=== PATIENT | female | born 1930 | race Caucasian/White ===

== ENCOUNTER → 2017-02-16 | Outpatient (CLI) | payer MEDICARE ==
--- NOTE | 2017-02-16 08:41 | RAD ---
Exam: PA and lateral chest radiograph History: Lower extremity edema for one week. Comparison: 05/26/2016. Findings: Cardiac silhouette is mildly enlarged, similar to previous study. Aortic atherosclerosis is seen. No pneumothorax or pleural effusion is identified. No focal consolidation or failure is seen. There is mild chronic accentuation of interstitial markings, may indicate mild fibrotic change. Impression: No acute cardiopulmonary process. Enlargement of the cardiac silhouette.
== END | disposition home or self-care (01) ==
LOC: DXRADRC 08:11
PROVIDERS: ATTEND Physician Assistant Medical
DX: I70.0 Atherosclerosis of aorta (principal); R60.0 Localized edema
CPT/HCPCS: 71020

== ENCOUNTER 2019-01-03 15:15 | Inpatient (IN) | payer MEDICARE ==
[~2019-01-03] VITALS: Ht 162.6 cm; Wt 74.4 kg
[2019-01-03 16:19] VITALS: BP 155/94
[2019-01-03 16:20] VITALS: BP 138/89
--- NOTE | 2019-01-03 17:08 | RAD ---
Portable chest, 01/03/2019: HISTORY: Shortness of breath Comparison is made to a study from 02/16/2017. The heart is mildly enlarged. There is calcific plaquing and tortuosity of the thoracic aorta. The pulmonary vascularity is normal. No pulmonary infiltrate is seen. There is no evidence of pleural fluid. IMPRESSION: 1. Cardiomegaly and aortic atherosclerosis. 2. No acute cardiopulmonary abnormality is detected. Electronically signed by: John Magallon MD (01/03/2019 5:04 PM) [facility]
[2019-01-03] MEDS ORDERED: DEXTROSE 50% 25 GM / 50ML DISP.SYRIN. IV PRN (17:15)
[2019-01-03 17:21] LABS: ALBUMIN 3.2 g/dL (3.4-5.0); ALBUMIN/GLOBULIN RATIO 0.7 (1.0-1.7); C REACTIVE PROTEIN 0.9 mg/L (0-3.3); CREATININE 1.7 mg/dL (0.6-1.0); GFR 28.4; POTASSIUM 4.6 mmol/L (3.5-5.1); TOTAL BILIRUBIN 0.6 mg/dL (0.2-1.0); TOTAL PROTEIN 7.5 g/dL (6.4-8.2)
--- NOTE | 2019-01-03 17:28 | EKG ---
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
--- NOTE | 2019-01-03 17:39 | HP ---
ADMIT DATE: 01/03/2019 HISTORY OF PRESENT ILLNESS: The patient was admitted directly from her primary care physician, Regina Larsen, as she presented there with extreme fatigue and weakness that has been going on for a few weeks. She stated that she is complaining of pain everywhere. She has an ongoing cough with mostly whitish sputum. She is very short of breath. She even becomes short of breath when talking. Her appetite has been poor and she has no energy. She is unable even to stand up from her chair and can walk only for short distance, become extremely short of breath. She, however, denied any chills, rigors, or fever. PAST MEDICAL HISTORY: Significant for type 2 diabetes mellitus, hypertension, hyperlipidemia, hypothyroidism. She is also known to have atrial fibrillation, rate controlled, well anticoagulated; history of gout; has glaucoma of the left eye with difficulty to control intraocular pressure for which she underwent surgery. She has history of osteomyelitis involving the right fifth upper extremity digit. PAST SURGICAL HISTORY: Significant for left eye surgery, total abdominal hysterectomy, bilateral salpingo-oophorectomy, appendectomy. ALLERGIES: She is allergic to PENICILLIN AND SULFA DRUGS. MEDICATIONS: She is currently on following medications: She is on vitamin D3 5000 units once a day, losartan 50 mg once a day, potassium 1 tablet once a day. She is also on metoprolol 50 mg once a day, Lantus 30 units subcutaneously daily at bedtime. She has also sliding scale, furosemide 20 mg orally twice a day. She is on Macrobid monohydrate 100 mg capsule orally twice a day, warfarin 3 mg tablet once a day, allopurinol 100 mg 1 tablet once a day, simvastatin 40 mg at bedtime. Basaglar KwikPen 30 units once a day at bedtime. She is on gabapentin 300 mg, she takes 1 capsule 3 times a day, levothyroxine 50 mcg once a day. She is also on Tradjenta 5 mg once a day. She is on glipizide 5 mg tablet extended release 1 tablet once a day. ALLERGIES: She is allergic to SULFA and PENICILLIN. FAMILY HISTORY: She has one sister, still alive and younger, but does not know if she has had any medical problem. Her father in his 70s, but she does not know the cause of his . Mother also , but does not know her . SOCIAL HISTORY: She is , has 2 sons and 1 daughter. She never smoked, does not drink alcohol. 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 REVIEW OF SYSTEMS: The patient has bilateral cataract extraction and has glaucoma in her left eye for which she underwent surgery to reduce the intraocular pressure. However, she has not had any laser photocoagulation nor that she is known to have diabetic retinopathy or macular degeneration. She denied any earache, tinnitus or sensorineural deafness. Denied any nosebleeds, stuffy nose or postnasal drip. Denied any sore throat, sore tongue, toothache, hoarseness of voice or difficulty swallowing. She does have severe anorexia and she lost about 11 pounds. Denied any nausea, vomiting, diarrhea or constipation. Denied any hematemesis, melena or hematochezia. Denied any dysuria, frequency or hematuria. Denied any chest pain. Did complain of shortness of breath even when talking. Denied any orthopnea or paroxysmal nocturnal dyspnea. She does have cough with scanty whitish sputum. Denied any hemoptysis. Denied any dizziness, lightheadedness, or vertigo. Denied any chills, rigor or fever. Her biggest complaint obviously generalized aches and pains or muscle weakness. She has difficulty even standing from a chair or the side of the bed. The patient was admitted with generalized aches and pains and arthralgias. She has what seems to be proximal marked weakness, shortness of breath. The differential diagnosis is obviously extensive. PLAN: My plan is to check her lab work initially. We will look for anemia, chronic kidney disease, perhaps polymyalgia rheumatica. I will order a CBC, CMP, CK, sed rate, CRP, troponin, a 12-lead EKG PT/INR, TSH, lactic acid and uric acid. We will arrange also for at a chest x-ray and 12-lead EKG. Meanwhile, we will monitor her blood sugar and make sure that she find out exactly how much insulin she is on because the list she has is very confusing and we will decide on further management accordingly. CASEY MCKENZIE MD DR: JATIN/niurka JOB#: [id number] / [id number]
[2019-01-03 17:42] LABS: HEMATOCRIT 37.3 % (36.0-47.0); HEMOGLOBIN 12.5 g/dL (12.0-15.5); RED BLOOD COUNT 3.72 x10^6/uL (3.50-5.40); RED CELL DISTRIBUTION WIDTH 16.2 % (11.5-14.5); WHITE BLOOD COUNT 7.4 x10^3/uL (4.0-11.0)
[2019-01-03] MEDS ORDERED: LEVO50TA5 PO (18:06)
[2019-01-03] MEDS ORDERED: WARF3TAB50 PO ×2 (18:06→18:07)
[2019-01-03] MEDS ORDERED: FURO40TA4 PO (18:06)
[2019-01-03] MEDS ORDERED: SIMV40TA3 PO (18:06)
[2019-01-03] MEDS ORDERED: LINA5TAB4 PO (18:06)
[2019-01-03] MEDS ORDERED: DORZ10DR27 EACHEYE (18:06)
[2019-01-03] MEDS ORDERED: METO50TA29 PO (18:06)
[2019-01-03] MEDS ORDERED: GABA300C8 PO (18:06)
[2019-01-03] MEDS ORDERED: INSU100I32 SQ (18:06)
[2019-01-03] MEDS ORDERED: LATA2.5D3 EACHEYE (18:06)
[2019-01-03] MEDS ORDERED: ALLO100T PO (18:06)
[2019-01-03 19:11] LABS: BACTERIA,URINE FEW /HPF (0-FEW); BILIRUBIN,URINE NEG (NEG); CLARITY,URINE HAZY; COLOR,URINE STRAW; GLUCOSE,URINE 500 mg/dL (NEG); NITRITE,URINE NEG (NEG); SQUAMOUS EPITHELIAL CELL,UR OCC /LPF; UROBILINOGEN,URINE 0.2 mg/dL (0.2 mg/dL)
[2019-01-03 19:35] VITALS: BP 141/88
[2019-01-03] MEDS ORDERED: IV NORMAL SALINE 50 ML BAG IV SCH (21:00)
[2019-01-03] MEDS: ACETAMINOPHEN 325 MG TABLET PO PRN (21:39)
[2019-01-03] MEDS: SIMVASTATIN 40 MG TABLET. PO SCH (21:39)
[2019-01-03] MEDS: IV NORMAL SALINE 1,000ML 1,000 ML IV SCH (21:39)
[2019-01-03] MEDS: GABAPENTIN 300 MG CAPSULE. PO SCH (21:39)
[2019-01-03] MEDS: LATANOPROST 0.005% OPHTH SOLUTION 2.5ML BOTTLE. OU SCH (22:52)
[2019-01-03] MEDS: DORZOLAMIDE/TIMOLOL 2%/0.5% OPHTH SOLUTION 10ML BOTTLE. OU SCH (22:52)
[2019-01-03] MEDS: INSULIN GLARGINE 300 UNITS/3 ML INSULN.PEN. SQ SCH (22:54)
[2019-01-03 23:26] VITALS: BP 137/74
[2019-01-04] MEDS: LEVOTHYROXINE 50 MCG TABLET PO SCH (06:00)
[2019-01-04 08:13] LABS: ALBUMIN 2.6 g/dL (3.4-5.0); ALBUMIN/GLOBULIN RATIO 0.7 (1.0-1.7); CALCIUM 10.2 mg/dL (8.5-10.1); CREATININE 1.5 mg/dL (0.6-1.0); GFR 32.8; POTASSIUM 4.5 mmol/L (3.5-5.1); TOTAL BILIRUBIN 0.5 mg/dL (0.2-1.0); TOTAL PROTEIN 6.4 g/dL (6.4-8.2)
[2019-01-04 08:14] LABS: BASO % 1 % (0-3); EOS # 0.1 x10^3/uL (0.0-0.7); EOS % 2 % (0-3); HEMATOCRIT 39.7 % (36.0-47.0); LYMPH # 1.5 x10^3/uL (1.0-4.8); LYMPH % 21 % (24-48); MEAN CORPUSCULAR HEMOGLOBIN 33 pg (25-35); MEAN CORPUSCULAR HGB CONC 33 g/dL (31-37); MEAN CORPUSCULAR VOLUME 102 fL (79-100); MONO # 0.6 x10^3/uL (0.0-1.1); MONO % 9 % (0-9); NEUT # 4.7 x10^3uL (1.8-7.7); NEUT % 68 % (31-73); PLATELET COUNT 210 x10^3/uL (140-400); RED CELL DISTRIBUTION WIDTH 15.6 % (11.5-14.5); WHITE BLOOD COUNT 6.9 x10^3/uL (4.0-11.0)
[2019-01-04] MEDS: GABAPENTIN 300 MG CAPSULE. PO SCH ×3 (10:16→20:23)
[2019-01-04] MEDS: METOPROLOL SUCC 24HR ER 50 MG TAB.ER.24H. PO SCH (10:17)
[2019-01-04] MEDS: LINAGLIPTIN 5 MG TABLET PO SCH (10:17)
[2019-01-04] MEDS: FUROSEMIDE 40 MG TABLET PO SCH ×2 (10:17→14:41)
[2019-01-04] MEDS: ALLOPURINOL 100 MG TABLET. PO SCH (10:17)
[2019-01-04] MEDS: DORZOLAMIDE/TIMOLOL 2%/0.5% OPHTH SOLUTION 10ML BOTTLE. OU SCH ×2 (10:18→20:23)
[2019-01-04] MEDS: IV NORMAL SALINE 1,000ML 1,000 ML IV SCH ×2 (10:19→23:10)
[2019-01-04 10:51] VITALS: BP 141/86
--- NOTE | 2019-01-04 14:48 | PN ---
DATE: 01/04/2019 SUBJECTIVE: The patient is resting comfortably in her chair, in no apparent respiratory distress. All her aches and pains are somewhat resolved. The only complaint is pain in her both legs. PHYSICAL EXAMINATION: GENERAL: When I examined her, she looked somewhat pale, but no jaundice, cyanosis, or thyromegaly. No jugular venous distension. No limb edema. VITAL SIGNS: Her heart rate was 87, blood pressure was 137/74, temperature was 97.6, respiratory rate was 18 and oxygen saturation was 97% on room air. HEAD, EYES, EARS, NOSE AND THROAT: Showed normocephalic, atraumatic. NECK: Supple. HEART: Showed normal first and second heart sounds with no gallop, rub or murmur. CHEST: Clear to auscultation. No crepitation or rhonchi. ABDOMEN: Distended, soft, nontender. No guarding or rigidity. No organomegaly. All hernial orifice intact. Bowel sounds normal. NEUROLOGIC: She was awake, alert, responding appropriately. All cranial nerves intact. Her extremities without difficulty. She apparently ambulates with a walker. LABORATORY DATA: On admission showed that her serum sodium 140, potassium 4.6, chloride 108, bicarbonate 24, anion gap of 8, BUN 30, creatinine 1.7, estimated GFR was 28 mL per minute. Her glucose was 169. Her calcium was high at 11, Total bilirubin, AST, ALT, alkaline phosphatase were normal. Total protein was 7.5, albumin was 3.2. TSH was slightly elevated at 5.017. Her white cell count as of yesterday was 7400, hemoglobin 12.5, hematocrit 37, MCV 100, and platelet count 299,000. Her prothrombin time was at 3.6. INR of 3.6. Urinalysis showed trace leukocyte esterase with 3-5 rbc's, 11-20 wbc's and very few bacteria. ASSESSMENT: We did a chest x-ray, which showed that the patient's heart is mildly enlarged. There is calcific plaquing and tortuosity of the thoracic aorta. The pulmonary vascularity is normal. No pulmonary infiltrates are seen. There is no evidence of pleural fluid. Today's labs showed that her lactic acid and uric acid are normal. However, her calcium was high at 11. Her troponin was slightly elevated at 0.031. PLAN: My plan is to repeat another troponin and intact PTH. Her calcium is slightly elevated. Check also T3, T4, free T4 to make sure that she is not clinically hypothyroid. CASEY MCKENZIE MD DR: JATIN/niurka JOB#: [id number] / [id number]
[2019-01-04 15:00] VITALS: BP 125/78
[2019-01-04 17:06] LABS: CALCIUM PTH 9.8 mg/dL (8.7-10.3); CREATININE PTH 1.58 mg/dL (0.57-1.00); PTH INTACT 353 pg/mL (15-65)
[2019-01-04 19:10] VITALS: BP 142/92
[2019-01-04] MEDS: LATANOPROST 0.005% OPHTH SOLUTION 2.5ML BOTTLE. OU SCH (20:23)
[2019-01-04] MEDS: SIMVASTATIN 40 MG TABLET. PO SCH (20:23)
[2019-01-04] MEDS: ACETAMINOPHEN 325 MG TABLET PO PRN (20:24)
[2019-01-04] MEDS: INSULIN GLARGINE 300 UNITS/3 ML INSULN.PEN. SQ SCH (20:48)
[2019-01-05] MEDS: LEVOTHYROXINE 50 MCG TABLET PO SCH (05:31)
[2019-01-05 06:05] VITALS: BP 130/70
[2019-01-05 07:17] LABS: ALBUMIN 2.8 g/dL (3.4-5.0); ALBUMIN/GLOBULIN RATIO 0.7 (1.0-1.7); CALCIUM 10.2 mg/dL (8.5-10.1); CREATININE 1.5 mg/dL (0.6-1.0); GFR 32.8; POTASSIUM 4.4 mmol/L (3.5-5.1); TOTAL BILIRUBIN 0.6 mg/dL (0.2-1.0); TOTAL PROTEIN 7.1 g/dL (6.4-8.2)
[2019-01-05 07:37] VITALS: BP 130/70
[2019-01-05] MEDS: METOPROLOL SUCC 24HR ER 50 MG TAB.ER.24H. PO SCH (07:37)
[2019-01-05] MEDS: LINAGLIPTIN 5 MG TABLET PO SCH (07:37)
[2019-01-05] MEDS: ALLOPURINOL 100 MG TABLET. PO SCH (07:37)
[2019-01-05] MEDS: FUROSEMIDE 40 MG TABLET PO SCH (07:37)
[2019-01-05] MEDS: GABAPENTIN 300 MG CAPSULE. PO SCH (07:37)
[2019-01-05] MEDS: DORZOLAMIDE/TIMOLOL 2%/0.5% OPHTH SOLUTION 10ML BOTTLE. OU SCH (07:37)
[2019-01-05] MEDS: IV NORMAL SALINE 1,000ML 1,000 ML IV SCH (08:00)
[2019-01-05 12:06] LABS: THYROXINE 5.6 ug/dL (4.5-12.0)
--- NOTE | 2019-01-05 13:39 | DS ---
DATE OF DISCHARGE: 01/05/2019 HISTORY OF PRESENT ILLNESS: The patient is an 88-year-old female patient, who was admitted to the Emergency Room with a complaint of generalized aches and pains, extreme fatigue that has been going on for a few weeks. She is complaining of pain everywhere. She has an ongoing cough with mostly whitish sputum. She is very short of breath and even becomes short of breath when talking. Her appetite has been poor and she has no energy, she is unable even to stand up from her chair and can walk only for short distance, become extremely short of breath; however, denied any chills, rigors, or fever. We have extensively investigated. Her lab work showed that she has hypercalcemia and acute on chronic kidney injury. Surprisingly, I initially my impression was polymyalgia rheumatica. However, her sed rate was only 10 mm per hour. However, further investigation showed that her intact PTH was 353 and serum phosphorus is only 2.4 consistent with primary hyperparathyroidism, although surprisingly, her alkaline phosphatase very low. We did start her on IV fluid and she did actually felt much better. Her appetite has improved and her mobility has improved. Aches and pains have resolved, although the calcium was dropped down from 11-10.2. She still continued to be high if corrected for the serum albumin and a decision was made to discharge her home with a plan to make arrangements for her to be seen by Dr. Jas Watts for possible parathyroidectomy. PHYSICAL EXAMINATION: GENERAL: When I saw her this afternoon, she was sitting comfortably in her chair, eating her lunch, in no apparent distress, slightly pale, but no jaundice, cyanosis, or thyromegaly. No jugular venous distension. No lower limb edema. VITAL SIGNS: Her heart rate was 88, blood pressure 130/70, temperature was 97.8, respiratory rate was 18 and oxygen saturation was 97%. HEAD, EYES, EARS, NOSE AND THROAT: Showed normocephalic, atraumatic. NECK: Supple. HEART: Showed normal first and second heart sounds. No gallop, rub or murmur. CHEST: Clear to auscultation. No crepitation or rhonchi. ABDOMEN: Distended, soft, nontender. NEUROLOGIC: She is awake, alert, responding appropriately. All cranial nerves intact. She moves extremities without difficulty. Her intake was 2498 and no output was recorded. LABORATORY DATA: Her lab work this morning showed that her serum sodium was 138, potassium 4.4, chloride 107, bicarbonate 23, anion gap of 8, BUN 22, creatinine 1.5, estimated GFR was 33 mL per minute. Her glucose 115, calcium was 10.2. Total bilirubin and alkaline phosphatase normal. AST, ALT slightly elevated. Total protein was 7.1, albumin 2.8. Her free T4 was 1.06, total T4 was 5.6 and total T3 was 64. Her intact PTH was 353, calcium was 9.8 and creatinine was 1.58 and phosphorus was 2.4. Her white cell count was 6900, hemoglobin 13, hematocrit 39, MCV 102 and platelet count of 210,000. DISCHARGE MEDICATIONS: The patient was discharged to continue on allopurinol 100 mg once a day, dorzolamide 1 drop to both eyes twice a day, furosemide 40 mg twice a day, gabapentin 300 mg 3 times a day. She is on Lantus insulin 20 units at bedtime, latanoprost 1 drop to both eyes at bedtime, levothyroxine sodium 50 mcg once a day, linagliptin for Tradjenta 5 mg once a day, Metoprolol Succinate 50 mg once a day, simvastatin 40 mg at bedtime. She is on Coumadin 3 mg. She takes one-half tablet p.o. daily and takes 3 mg p.o. Sunday and Sunday. FINAL DISCHARGE DIAGNOSES: 1. Hypercalcemia. 2. Primary hyperparathyroidism. 3. Acute on chronic kidney injury. 4. Hypertension. 5. Type 2 diabetes mellitus. 6. Hyperlipidemia. 7. Hypothyroidism. 8. Atrial fibrillation, rate controlled, well anticoagulated. 9. Gout. 10. Glaucoma. CASEY MCKENZIE MD DR: JATIN/niurka JOB#: [id number] / [id number]
== END 2019-01-05 13:40 | disposition home or self-care (01) | DRG 643 ==
LOC: 1 SOUTH 15:15
PROVIDERS: ADMIT Internal Medicine; ATTEND Internal Medicine
DX: E21.0 Primary hyperparathyroidism (principal); E43 Unspecified severe protein-calorie malnutrition; N17.0 Acute kidney failure with tubular necrosis; E03.9 Hypothyroidism, unspecified; E11.22 Type 2 diabetes mellitus with diabetic chronic kidney disease; E78.5 Hyperlipidemia, unspecified; H40.9 Unspecified glaucoma; I12.9 Hypertensive chronic kidney disease with stage 1 through stage 4 chronic kidney disease, or unspecified chronic kidney disease; I48.91 Unspecified atrial fibrillation; M10.9 Gout, unspecified; M35.3 Polymyalgia rheumatica; N18.9 Chronic kidney disease, unspecified; Z90.710 Acquired absence of both cervix and uterus; Z90.79 Acquired absence of other genital organ(s); Z90.722 Acquired absence of ovaries, bilateral; Z90.49 Acquired absence of other specified parts of digestive tract; Z88.0 Allergy status to penicillin; Z98.42 Cataract extraction status, left eye; Z98.41 Cataract extraction status, right eye; Z68.28 Body mass index [BMI] 28.0-28.9, adult
CPT/HCPCS: 36415; 71045; 80053; 81001; 82550; 82947; 83605; 83970; 84436; 84439; 84443; 84480; 84484; 84550; 85025; 85027; 85610; 85651; 86140; 87086; 87186; 93005; J1815; J7030

== ENCOUNTER 2019-01-25 14:23 | Inpatient (IN) | payer MEDICARE ==
[~2019-01-25] VITALS: Ht 167.6 cm; Wt 72.6 kg
[~2019-01-25 14:23] MED LIST: ALLO100T PO; DORZ10DR27 EACHEYE; FURO40TA4 PO; GABA300C8 PO; INSU100I32 SQ; LATA2.5D3 EACHEYE; LEVO50TA5 PO; LINA5TAB4 PO; METO50TA29 PO; SIMV40TA3 PO; WARF3TAB50 PO
[2019-01-25] MEDS ORDERED: traMADol 50 MG TABLET PO ONE (14:45)
--- NOTE | 2019-01-25 15:11 | PHYS DOC ---
Past History Past Medical History: Arthritis, CAD, Diabetes, High Cholesterol, Hypertension, Hypothyroid, Other Past Surgical History: Hysterectomy, Tonsillectomy Alcohol Use: None Drug Use: None Adult General Chief Complaint Chief Complaint: KNEE INJURY HPI HPI Patient is a 88-year-old female who presents with right knee pain. 2 days ago patient was trying to stand up and ended up falling backwards onto her buttocks causing pain in her right knee. Increased pain with movement and walking. Denies any hip pain. Denies any weakness, numbness, or paresthesias. Patient has taken no pain medicine today for the discomfort. Nothing really seems to make the discomfort better.[] Review of Systems Review of Systems Constitutional: Denies fever or chills [] Eyes: Denies change in visual acuity, redness, or eye pain [] HENT: Denies nasal congestion or sore throat [] Respiratory: Denies cough or shortness of breath [] Cardiovascular: No chest pain or palpitations[] GI: Denies abdominal pain, nausea, vomiting, bloody stools or diarrhea [] : Denies dysuria or hematuria [] Musculoskeletal: Denies back pain, see history of present illness[] Integument: Denies rash or skin lesions [] Neurologic: Denies headache, focal weakness or sensory changes [] Endocrine: Denies polyuria or polydipsia [] All other systems were reviewed and found to be within normal limits, except as documented in this note. Current Medications Current Medications Current Medications Medications (Trade) Dose Ordered Sig/Elisabet Start Time Stop Time Status Last Admin Dose Admin Tramadol HCl (Ultram) 50 mg 1X ONCE 01/25/19 14:45 01/25/19 14:46 DC 01/25/19 14:45 50 MG Allergies Allergies Allergies Coded Allergies Type Severity Reaction Last Updated Verified Penicillins Allergy Unknown Hives 01/03/19 Yes Sulfa (Sulfonamide Antibiotics) Allergy Unknown Hives 01/03/19 Yes Physical Exam Physical Exam Constitutional: Well developed, well nourished, mild discomfort, non-toxic appearance. [] HENT: Normocephalic, atraumatic, bilateral external ears normal, oropharynx moist, no oral exudates, nose normal. [] Eyes: PERRLA, EOMI, conjunctiva normal, no discharge. [] Neck: Normal range of motion, no tenderness, supple, no stridor. [] Cardiovascular:Heart rate regular rhythm, no murmur [] Lungs & Thorax: Bilateral breath sounds clear to auscultation [] Abdomen: Bowel sounds normal, soft, no tenderness, no masses, no pulsatile masses. [] Skin: Warm, dry, no erythema, no rash. [] Back: No tenderness, no CVA tenderness. [] Extremities: Right knee shows some edema, no effusion, no laxity either varus or valgus or with drawer or Linda testing. No pain with axial loading. No joint line tenderness. Right hip shows no pain with motion. No pain with axial loading. Patient is distally neurovascularly intact with no right ankle pain. The other 3 extremities show: No tenderness, no cyanosis, no clubbing, ROM intact, no edema. [] Neurologic: Alert and oriented X 3, normal motor function, normal sensory function, no focal deficits noted. [] Psychologic: Affect normal, judgement normal, mood normal. [] Current Patient Data Vital Signs Vital Signs Date Time Temp Pulse Resp B/P (MAP) Pulse Ox O2 Delivery O2 Flow Rate FiO2 01/25/19 14:25 97.9 88 20 97 Room Air EKG EKG [] Radiology/Procedures Radiology/Procedures PROCEDURE: HIP RIGHT 2V WITH PELVIS AP pelvis and right hip AP and frog-leg lateral x-rays HISTORY: Fall, pain. FINDINGS: 2 cm cyst at the right acetabulum. Osseous arthritis of both hips on the AP view. No fracture or dislocation of the right hip. IMPRESSION: No acute osseous injury of the right hip. Right knee x-rays 3 views HISTORY: Fall, right knee pain. FINDINGS: Suprapatellar joint effusion. No fracture or dislocation. Osteoarthritis with joint space narrowing and osteophytes all 3 compartments. Arterial vascular calcifications at the thigh and calf. Meniscal chondrocalcinosis. IMPRESSION: No acute osseous injury. Joint effusion. Osteoarthritis. PROCEDURE: KNEE RIGHT 3V AP pelvis and right hip AP and frog-leg lateral x-rays HISTORY: Fall, pain. FINDINGS: 2 cm cyst at the right acetabulum. Osseous arthritis of both hips on the AP view. No fracture or dislocation of the right hip. IMPRESSION: No acute osseous injury of the right hip. Right knee x-rays 3 views HISTORY: Fall, right knee pain. FINDINGS: Suprapatellar joint effusion. No fracture or dislocation. Osteoarthritis with joint space narrowing and osteophytes all 3 compartments. Arterial vascular calcifications at the thigh and calf. Meniscal chondrocalcinosis. IMPRESSION: No acute osseous injury. Joint effusion. Osteoarthritis.[] Course & Med Decision Making Course & Med Decision Making Pertinent Labs and Imaging studies reviewed. (See chart for details) ED course: Patient arrived, was placed in bed, and tolerated exam well. Patient was in an adult incontinence undergarment that was packed with additional towels because she had been unable to change it. There was no significant skin breakdown noted. She was transported to and from radiology with any complications. After the return of the imaging studies that showed no fracture, and she had received pain medicine, attempted to ambulate the patient. She was unable to ambulate. Given this inability to ambulate and limited care being provided at home, consultation was made with the hospitalist service for admission. He graciously accepted the patient. Discussed findings and plan with patient and family who voiced understanding. All questions were answered. Medical decision making: There does not appear to be a fracture or dislocation. Given the poor hygiene issues and inability to ambulate in a patient who was previously ambulatory, admitting the patient for further evaluation, rehabilitation, and possible placement while she recovers from this injury.[] Dragon Disclaimer Dragon Disclaimer This electronic medical record was generated, in whole or in part, using a voice recognition dictation system. Departure Departure: Impression: Primary Impression: Knee pain, right Additional Impressions: Inability to ambulate due to knee Inability to perform activities of daily living Disposition: ADMITTED INPATIENT Admitting Physician: Wilton Junior Condition: IMPROVED Referrals: MARIOLA HERNANDES (PCP) Problem Qualifiers Primary Impression: Knee pain, right Chronicity: acute Qualified Codes: M25.561 - Pain in right knee ELIAS BAKER January 25, 2019 15:11
--- NOTE | 2019-01-25 16:29 | RAD ---
AP pelvis and right hip AP and frog-leg lateral x-rays HISTORY: Fall, pain. FINDINGS: 2 cm cyst at the right acetabulum. Osseous arthritis of both hips on the AP view. No fracture or dislocation of the right hip. IMPRESSION: No acute osseous injury of the right hip. Right knee x-rays 3 views HISTORY: Fall, right knee pain. FINDINGS: Suprapatellar joint effusion. No fracture or dislocation. Osteoarthritis with joint space narrowing and osteophytes all 3 compartments. Arterial vascular calcifications at the thigh and calf. Meniscal chondrocalcinosis. IMPRESSION: No acute osseous injury. Joint effusion. Osteoarthritis. Electronically signed by: Kenn Mcnair MD (01/25/2019 4:25 PM) [facility] [place]
[2019-01-25] MEDS ORDERED: ONDANSETRON PF 4 MG/2 ML VIAL. IV PRN (16:45)
[2019-01-25] MEDS ORDERED: ACETAMINOPHEN 325 MG TABLET PO PRN (16:45)
[2019-01-25] MEDS ORDERED: MORPHINE SULFATE 2 MG/ML DISP.SYRIN. IV PRN (16:45)
[2019-01-25 17:33] LABS: BASO % 0 % (0-3); EOS % 0 % (0-3); HEMATOCRIT 46.1 % (36.0-47.0); LYMPH # 0.9 x10^3/uL (1.0-4.8); LYMPH % 8 % (24-48); MEAN CORPUSCULAR HEMOGLOBIN 33 pg (25-35); MEAN CORPUSCULAR HGB CONC 33 g/dL (31-37); MEAN CORPUSCULAR VOLUME 102 fL (79-100); MONO # 1.6 x10^3/uL (0.0-1.1); MONO % 14 % (0-9); NEUT # 8.7 x10^3uL (1.8-7.7); NEUT % 77 % (31-73); PLATELET COUNT 262 x10^3/uL (140-400); RED BLOOD COUNT 4.54 x10^6/uL (3.50-5.40); RED CELL DISTRIBUTION WIDTH 14.4 % (11.5-14.5); WHITE BLOOD COUNT 11.3 x10^3/uL (4.0-11.0)
[2019-01-25 17:46] LABS: ALBUMIN 2.9 g/dL (3.4-5.0); ALBUMIN/GLOBULIN RATIO 0.6 (1.0-1.7); CALCIUM 11.4 mg/dL (8.5-10.1); CREATININE 2.4 mg/dL (0.6-1.0); GFR 19.1; TOTAL BILIRUBIN 0.8 mg/dL (0.2-1.0)
[2019-01-25 18:00] VITALS: BP 118/78
--- NOTE | 2019-01-25 18:22 | NUR ---
The patient, RONNA MAYES, 88 y/o, F admitted by CASEY MCKENZIE MD, was given written information regarding hospital policies, unit procedures and contact persons. Valuables were checked and admission assessment performed. pt is alert and orientated. pt states she fell 3 days ago and has had a decrease in activity since then. pt is unable to tolerate ambulation, pt does not have any wounds or bruising, though. pt's vss. no iv access from the er, pt is a difficult stick, will continue to assess iv situation and pt is calm and compliant, sitting in bed eating dinner, call light within reach, will ctm.
[2019-01-25 19:45] VITALS: BP 120/78
[2019-01-25 23:11] VITALS: BP 146/87
--- NOTE | 2019-01-26 02:41 | NUR ---
Pt slept very well most of the evening; could not assess orientation or pain until pt pain medication wore off. VS monitored and stayed WNL. Left IV appeared to be leaking or occluded. New IV placed in Right arm; no leaking, swelling or pain noted. Fluids running and pt resting comfortably.
[2019-01-26 06:01] VITALS: BP 128/82
[2019-01-26] MEDS ORDERED: DEXTROSE 50% 25 GM / 50ML DISP.SYRIN. IV PRN ×2 (07:30→19:15)
[2019-01-26] MEDS ORDERED: NON FORMULARY ITEM (Warfarin Sodium 3 MG) PO SCH (07:30)
[2019-01-26] MEDS ORDERED: FUROSEMIDE 20 MG TABLET ONE (07:40)
[2019-01-26] MEDS: IV NORMAL SALINE 1,000ML 1,000 ML IV SCH ×2 (08:20→08:30)
[2019-01-26] MEDS: ALLOPURINOL 100 MG TABLET. PO SCH (08:26)
[2019-01-26] MEDS: LINAGLIPTIN 5 MG TABLET PO SCH (08:27)
[2019-01-26] MEDS: METOPROLOL SUCC 24HR ER 50 MG TAB.ER.24H. PO SCH (08:27)
[2019-01-26] MEDS: GABAPENTIN 300 MG CAPSULE. PO SCH ×3 (08:27→21:29)
[2019-01-26] MEDS: FUROSEMIDE 40 MG TABLET PO SCH ×2 (08:35→14:00)
[2019-01-26] MEDS: DORZOLAMIDE/TIMOLOL 2%/0.5% OPHTH SOLUTION 10ML BOTTLE. OU SCH ×2 (10:13→21:29)
[2019-01-26 11:25] VITALS: BP 133/83
--- NOTE | 2019-01-26 12:28 | HP ---
ADMIT DATE: 01/26/2019 HISTORY OF PRESENT ILLNESS: The patient is an 88-year-old female patient, who was brought to the Emergency Room with a complaint of pain in her right lower extremity. She apparently fell last Sunday and has been able to walk with assistance, but Sunday morning she was unable to walk. Originally she feels trying to stand up and ended up falling backward onto her buttocks, causing pain in her right knee joint with increased pain with movement and walking. She was seen in the Emergency Room and was extensively investigated. She has had x-ray of her pelvis and right hip showed that there is no acute osseous injury of the right hip and her right knee showed that she has suprapatellar joint effusion, no fracture or dislocation, osteoarthritis with joint space narrowing and osteophytes all the 3 compartments, arterial vascular calcification of the thigh and calf meniscal chondrocalcinosis. She was found also to have other abnormalities in her labs, she has hyponatremia, she has acute on chronic kidney injury and also hypercalcemia, was admitted for pain management and to rehydrate her. She has severe hypercalcemia. PAST MEDICAL HISTORY: Significant for type 2 diabetes mellitus, hypertension, hyperlipidemia, hypothyroidism. She is known to have atrial fibrillation, rate controlled, well anticoagulated, history of gout, has glaucoma of the left eye with difficulty to control intraocular pressure for which she underwent surgery. She has history of osteomyelitis involving right fifth both digits. PAST SURGICAL HISTORY: Significant for left eye surgery, total abdominal hysterectomy, bilateral salpingo-oophorectomy, appendectomy. ALLERGIES: She is allergic to PENICILLIN and SULFA DRUGS. FAMILY HISTORY: She has one sister still alive and younger, but does not know if she has had any medical problem. Her father in his 70s, but she does not know the cause of his . Mother also was , but does not know her cause of . SOCIAL HISTORY: She is , has 2 sons and 1 daughter. She currently lives with her daughter. She never smoked, does not drink alcohol. 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 MEDICATIONS: She is currently on following medications: She is on Coumadin. She takes 3 mg on Sunday to Sunday and 1.5 mg on Sunday and Sunday, simvastatin 40 mg at bedtime, metoprolol succinate 50 mg daily, gabapentin 300 mg capsule 3 times a day, furosemide 40 mg twice a day. She is on dorzolamide/timolol maleate 1 drop to both eyes twice a day, latanoprost 1 drop to both eyes at bedtime, Linagliptin 5 mg daily. She is on Lantus insulin 20 units at bedtime, levothyroxine 50 mcg daily, allopurinol 100 mg once a day. PHYSICAL EXAMINATION: GENERAL: On arrival to the Emergency Room, the patient looked well, complaining of pain, but there is no pallor, jaundice, cyanosis, or thyromegaly. No jugular venous distension. No lower limb edema. VITAL SIGNS: Her heart rate was 80, blood pressure was 120/78, temperature was 98, respiratory rate was 16, and oxygen saturation was 97%. HEAD, EYES, EARS, NOSE AND THROAT: Showed normocephalic, atraumatic. NECK: Supple. HEART: Showed normal first and second heart sounds. No gallop, rub or murmur. CHEST: Clear to auscultation. No crepitation or rhonchi. ABDOMEN: Distended, soft, nontender. NEUROLOGIC: She was awake, alert, responding appropriately. All cranial nerves intact. She moves upper extremities without difficulty. She is having severe pain that she is unable to localize exactly, although most of it is around her right knee joint. LABORATORY DATA: On arrival showed that her white cell count was 11,300, hemoglobin 15, hematocrit 46, MCV 102 and platelet count 262,000 with a manual differential shows 77% polymorphs, 8% lymphocytes, 14% monocytes. Her chemistry showed serum sodium 129, potassium 4, chloride 98, bicarbonate 20, anion gap of 11, BUN 41, creatinine 2.4, estimated GFR was 19 mL per minute. Her glucose was 226, calcium was 11.4. Total bilirubin, AST, ALT, alkaline phosphatase were normal. Total protein was 8, albumin was 2.9. Her prothrombin time was 28.5, INR of 3. ASSESSMENT AND PLAN: In summary, this is an 88-year-old female patient, who fell almost a week ago and has been able to move around; however, her pain has increased and mobility has decreased. Since Sunday morning, she was unable to stand or walk. X-ray of her right knee joint showed that she has suprapatellar effusion, but no fracture or dislocation. She has also meniscal chondrocalcinosis. She has hyponatremia, acute on chronic kidney injury, severe hypercalcemia. PLAN: My plan is to continue with IV fluid. I will arrange for her to have a CT scan of the pelvis and right hip joint as well as right knee joint and we will decide on further management accordingly. My feeling is that because she is on Coumadin she probably has right hemarthrosis and that might be the reason for her severe pain. I will definitely check her prothrombin time again today. Hold her Coumadin and we will decide the further management accordingly. CASEY MCKENZIE MD DR: JATIN/niurka JOB#: [id number] / [id number]
[2019-01-26 13:48] LABS: ALBUMIN 2.4 g/dL (3.4-5.0); ALBUMIN/GLOBULIN RATIO 0.6 (1.0-1.7); CALCIUM 10.2 mg/dL (8.5-10.1); CREATININE 1.9 mg/dL (0.6-1.0); GFR 24.9; TOTAL PROTEIN 6.2 g/dL (6.4-8.2)
--- NOTE | 2019-01-26 14:06 | RAD ---
CT scan of the right knee without contrast 01/26/2019 CLINICAL HISTORY: Fall with right knee pain. TECHNIQUE: Unenhanced, contiguous, 0.625 mm axial sections were obtained through the right knee. 2 mm reconstructed sagittal, axial and coronal images were obtained. One or more of the following individualized dose reduction techniques were utilized for this study: 1. Automated exposure control. 2. Adjustment of the mA and/or kV according to patient size. 3. Use of iterative reconstruction technique. FINDINGS: Comparison is made to radiographs of the right knee dated 01/25/2019. There is diffuse osteopenia of the visualized bony structures. No fracture or dislocation of the right knee is seen. Moderate to severe changes are seen involving all 3 compartments of the right knee. These consist of joint compartment narrowing, subchondral sclerosis and associated osteophyte formation. This particularly involves the lateral compartment. There is a moderate sized right knee joint effusion. Scattered atherosclerotic calcification of the right popliteal artery and its branches is noted. IMPRESSION: No fracture or dislocation of the right knee is seen. Electronically signed by: Karlos Rand MD (01/26/2019 2:04 PM) [facility]
--- NOTE | 2019-01-26 14:15 | RAD ---
CT scan of the pelvis to include both hips without contrast 01/26/2019 CLINICAL HISTORY: Fall with severe pelvic/hip pain. TECHNIQUE: Unenhanced, contiguous, 0.625 mm axial sections were obtained through the pelvis to include both hips. 3 mm reconstructed sagittal, axial and coronal images were obtained. FINDINGS: Comparison is made to radiographs of the pelvis and right hip dated 01/25/2019. There is diffuse osteopenia of the visualized bony structures. No pelvic bone fracture is seen. No fracture or dislocation of either hip is noted. Moderate to severe degenerative changes are seen involving both hips. These consist of vertebral endplate sclerosis, joint compartment narrowing and subchondral cyst formation along associated osteophyte formation. Degenerative changes are seen involving the facet joints of the mid and lower lumbar spine. Degenerative changes are seen involving both SI joints. Atherosclerotic calcification of the abdominal aorta and its branches is noted. Multiple diverticula are seen involving the sigmoid colon. No inflammatory changes are seen in the adjacent fat. Air is seen within the anterior aspect of the urinary bladder which is likely related to recent catheterization. IMPRESSION: No fracture or dislocation is seen. Electronically signed by: Karlos Rand MD (01/26/2019 2:12 PM) [facility]
[2019-01-26 14:28] LABS: BILIRUBIN,URINE NEG (NEG); CLARITY,URINE CLOUDY; COLOR,URINE YELLOW; GLUCOSE,URINE 250 mg/dL (NEG)
[2019-01-26 14:29] LABS: BACTERIA,URINE MANY /HPF (0-FEW); NITRITE,URINE NEG (NEG); SQUAMOUS EPITHELIAL CELL,UR FEW /LPF; UROBILINOGEN,URINE 1 mg/dL (0.2 mg/dL); WBC,URINE >40 /HPF (0-4)
[2019-01-26] MEDS: MEROPENEM 500 MG in IV NORMAL SALINE 50ML 50 ML IV SCH ×2 (15:09→21:29)
[2019-01-26] MEDS ORDERED: WARFARIN SODIUM PO SCH (16:00)
[2019-01-26 17:25] VITALS: BP 122/78
[2019-01-26] MEDS: INSULIN LISPRO 300 UNITS/3 ML INSULN.PEN. SQ SCH (19:30)
[2019-01-26] MEDS: LATANOPROST 0.005% OPHTH SOLUTION 2.5ML BOTTLE. OU SCH (21:29)
[2019-01-26] MEDS: SIMVASTATIN 40 MG TABLET. PO SCH (21:29)
[2019-01-26] MEDS: INSULIN GLARGINE 300 UNITS/3 ML INSULN.PEN. SQ SCH (21:45)
--- NOTE | 2019-01-26 22:43 | PN ---
DATE: 01/26/2019 SUBJECTIVE: The patient is resting, slightly propped up in bed, continued to complain of severe pain in her right lower extremity that she continued to be nonspecific and unable to pinpoint the side with the pain, although she obviously has marked tenderness in her right knee joint without any obvious bruises. PHYSICAL EXAMINATION: GENERAL: When I examined her this morning, she looked well and was clearly in no apparent respiratory distress. No pallor, jaundice, cyanosis or thyromegaly. No jugular venous distension. No limb edema. VITAL SIGNS: Her heart rate was 93, blood pressure 133/83, temperature was 97.8, respiratory rate 20, and oxygen saturation was 97% on room air. HEAD, EYES, EARS, NOSE AND THROAT: Showed normocephalic, atraumatic. NECK: Supple. HEART: Showed normal first and second heart sounds with no gallop, rub or murmur. CHEST: Clear to auscultation. No crepitation or rhonchi. ABDOMEN: Distended, soft, nontender. No guarding or rigidity. No organomegaly. All hernial orifices are intact. Bowel sounds normal. NEUROLOGIC: She was awake, alert, oriented, responding appropriately. All her cranial nerves are intact. She moves upper extremities and left lower extremity without difficulty. She definitely has pain and limitation of movement of her right lower extremity. Her intake over the last 24 hours was 778, no output was recorded. LABORATORY DATA: Her lab work this morning is still pending at the time of this dictation. My plan is to continue with the normal saline at 100 mL per hour for 6 hours, then cut down to 75. We will monitor her prothrombin time and hold it if it is more than 2. I have arranged for her to have a CT scan of the pelvis, both hip joint and a CT scan of her right knee. In summary, this is an 88-year-old female patient who came with a history of fall. 1. She has severe right lower extremity pain. She has effusion and possible chondrocalcinosis of her right knee joint. 2. Hyponatremia. 3. Hypercalcemia. 4. Cdxhh-sf-zlepmze kidney injury. CASEY MCKENZIE MD DR: JATIN/niurka JOB#: [id number] / [id number]
[2019-01-26 22:59] VITALS: BP 120/80
[2019-01-27] MEDS: IV NORMAL SALINE 1,000ML 1,000 ML IV SCH ×2 (01:45→12:30)
[2019-01-27 04:47] VITALS: BP 109/71
--- NOTE | 2019-01-27 05:05 | NUR ---
Pt slept intermittently through the night. She grimaces occasionally but denies pain. IV at beginning of shift infiltrated requiring new IV placement to administer antibiotics. Pt expressed preference in oral medications and wants her IV removed. WCTM
[2019-01-27] MEDS: LEVOTHYROXINE 50 MCG TABLET PO SCH (06:14)
[2019-01-27 06:32] LABS: HEMOGLOBIN 12.1 g/dL (12.0-15.5); RED BLOOD COUNT 3.69 x10^6/uL (3.50-5.40); RED CELL DISTRIBUTION WIDTH 14.4 % (11.5-14.5); WHITE BLOOD COUNT 9.9 x10^3/uL (4.0-11.0)
[2019-01-27 06:45] LABS: ALBUMIN 1.8 g/dL (3.4-5.0); ALBUMIN/GLOBULIN RATIO 0.4 (1.0-1.7); CREATININE 1.7 mg/dL (0.6-1.0); GFR 28.4; POTASSIUM 3.6 mmol/L (3.5-5.1); TOTAL BILIRUBIN 0.6 mg/dL (0.2-1.0); TOTAL PROTEIN 5.9 g/dL (6.4-8.2)
[2019-01-27] MEDS: LINAGLIPTIN 5 MG TABLET PO SCH (08:49)
[2019-01-27] MEDS: GABAPENTIN 300 MG CAPSULE. PO SCH ×3 (08:49→21:31)
[2019-01-27] MEDS: ALLOPURINOL 100 MG TABLET. PO SCH (08:49)
[2019-01-27] MEDS: METOPROLOL SUCC 24HR ER 50 MG TAB.ER.24H. PO SCH (08:49)
[2019-01-27] MEDS: DORZOLAMIDE/TIMOLOL 2%/0.5% OPHTH SOLUTION 10ML BOTTLE. OU SCH ×2 (08:50→21:33)
[2019-01-27] MEDS: INSULIN LISPRO 300 UNITS/3 ML INSULN.PEN. SQ SCH ×3 (08:57→17:19)
[2019-01-27] MEDS: MEROPENEM 500 MG in IV NORMAL SALINE 50ML 50 ML IV SCH ×2 (08:58→21:33)
[2019-01-27 11:08] VITALS: BP 128/83
[2019-01-27 15:23] VITALS: BP 111/66
[2019-01-27 20:04] VITALS: BP 104/67
[2019-01-27] MEDS: LACTOBACILLUS RHAMNOSUS GG 1 CAPSULE. PO SCH (21:31)
[2019-01-27] MEDS: SIMVASTATIN 40 MG TABLET. PO SCH (21:31)
[2019-01-27] MEDS: LATANOPROST 0.005% OPHTH SOLUTION 2.5ML BOTTLE. OU SCH (21:33)
[2019-01-27] MEDS: INSULIN GLARGINE 300 UNITS/3 ML INSULN.PEN. SQ SCH (21:39)
[2019-01-27 22:55] VITALS: BP 116/74
--- NOTE | 2019-01-27 22:55 | PN ---
DATE: 01/27/2019 SUBJECTIVE: The patient is sitting comfortably in her chair, eating her lunch comfortably. She was somewhat distress. She wants to go back to bed. She could not make a decision about transferring her to [facility] to look into her right knee further as they feel that she might have hemarthrosis. I would like to see the orthopedic surgeon to see her and perhaps aspirate her joint and injected with steroids as necessary. She also has hypercalcemia and I would like to consult the surgeon for possible parathyroidectomy given how high her calcium and PTH is; however, apparently we need her daughter and her family to discuss these options with her and if she and the family are agreeable, I will transfer her tomorrow to [facility]. Other option is obviously for her to go to a alf facility as she is clearly needs rehabilitation. PHYSICAL EXAMINATION: GENERAL: When I saw her this afternoon, she looked well and was clearly in no apparent respiratory distress, pale, but no jaundice, cyanosis, or thyromegaly. No jugular venous distension. No lower limb edema. VITAL SIGNS: Her heart rate was 86, blood pressure 128/83, temperature was 98.9, respiratory rate 20, and oxygen saturation was 96%. HEAD, EYES, EARS, NOSE AND THROAT: Showed normocephalic, atraumatic. NECK: Supple. HEART: Showed normal first and second sounds. No gallop, rub or murmur. CHEST: Clear to auscultation. No crepitation or rhonchi. ABDOMEN: Distended, soft, nontender. NEUROLOGIC: She was awake, alert, responding appropriately. All cranial nerves intact. She moves extremities without difficulty. She continued to be mostly bedbound, chair bound. She requires 2-person assist because of severe pain in her right knee. Her intake over the last 24 hours was 778 and no output was recorded. LABORATORY DATA: Her lab work this morning showed a white cell count 9900, hemoglobin 12, hematocrit 37, MCV 100, and platelet count of 222,000. Her serum sodium was 135, potassium 3.6, chloride 106, bicarbonate 21, anion gap of 8, BUN 30, creatinine 1.7, estimated GFR was 28 mL per minute. Her glucose was 204 and calcium was 10. Total bilirubin, AST, ALT, alkaline phosphatase were normal. Total protein was 5.9, albumin was 1.8. Her prothrombin time was 19.1 and INR of 2. ASSESSMENT: 1. Severe right lower extremity pain. She has effusion, possible chondrocalcinosis of the right knee joint. 2. Hyponatremia. 3. Hypercalcemia. 4. Acute on chronic kidney injury. PLAN: To continue with IV fluid. I will repeat her labs tomorrow and we will discuss with the family the option of transferring her to [place] for orthopedic and surgical consult. CASEY MCKENZIE MD DR: JATIN/niurka JOB#: [id number] / [id number]
[2019-01-28 05:12] VITALS: BP 119/74
[2019-01-28] MEDS ORDERED: ACETAMINOPHEN 325 MG TABLET PO ONE (05:28)
[2019-01-28] MEDS ORDERED: ACETAMINOPHEN 325 MG TABLET PO PRN (05:45)
[2019-01-28] MEDS: LEVOTHYROXINE 50 MCG TABLET PO SCH (05:47)
[2019-01-28] MEDS: IV NORMAL SALINE 1,000ML 1,000 ML IV SCH ×2 (05:47→13:40)
--- NOTE | 2019-01-28 06:27 | NUR ---
Nursing Note Pt seems depressed or sad. She is tearful when changing her brief c/o pain her legs "all over" and apologizes often for needing us to clean her up, despite reassurance. Possible treatments and options were discussed and explained on multiple occasions to help her understand the significance. Family visited yesterday and stated they would be back today to ask Dr. Junior more questions about treatments.
[2019-01-28 07:02] LABS: ALBUMIN 1.7 g/dL (3.4-5.0); ALBUMIN/GLOBULIN RATIO 0.4 (1.0-1.7); CALCIUM 10.1 mg/dL (8.5-10.1); CREATININE 1.6 mg/dL (0.6-1.0); GFR 30.4; POTASSIUM 4.1 mmol/L (3.5-5.1); TOTAL BILIRUBIN 0.7 mg/dL (0.2-1.0); TOTAL PROTEIN 5.9 g/dL (6.4-8.2)
[2019-01-28 07:05] LABS: HEMATOCRIT 37.6 % (36.0-47.0); HEMOGLOBIN 12.5 g/dL (12.0-15.5); RED BLOOD COUNT 3.72 x10^6/uL (3.50-5.40); RED CELL DISTRIBUTION WIDTH 14.5 % (11.5-14.5); WHITE BLOOD COUNT 10.9 x10^3/uL (4.0-11.0)
[2019-01-28] MEDS: INSULIN LISPRO 300 UNITS/3 ML INSULN.PEN. SQ SCH ×2 (08:00→12:15)
[2019-01-28] MEDS: LINAGLIPTIN 5 MG TABLET PO SCH (08:24)
[2019-01-28] MEDS: ALLOPURINOL 100 MG TABLET. PO SCH (08:24)
[2019-01-28] MEDS: LACTOBACILLUS RHAMNOSUS GG 1 CAPSULE. PO SCH (08:24)
[2019-01-28] MEDS: METOPROLOL SUCC 24HR ER 50 MG TAB.ER.24H. PO SCH (08:25)
[2019-01-28] MEDS: LATANOPROST 0.005% OPHTH SOLUTION 2.5ML BOTTLE. OU SCH (08:25)
[2019-01-28] MEDS: GABAPENTIN 300 MG CAPSULE. PO SCH (08:25)
[2019-01-28] MEDS: DORZOLAMIDE/TIMOLOL 2%/0.5% OPHTH SOLUTION 10ML BOTTLE. OU SCH (08:26)
[2019-01-28] MEDS: MEROPENEM 500 MG in IV NORMAL SALINE 50ML 50 ML IV SCH (08:26)
[2019-01-28 12:06] VITALS: BP 114/74
--- NOTE | 2019-01-28 13:27 | NUR ---
Discharge Note: RONNA MAYES [address] Discharge instructions and discharge home medications reviewed with Nurse Thierno SALAZAR on [address] [facility] via Telephone and a copy given. All questions have been answered and understanding verbalized. Patient is a patient of Dr. Junior'panda who was admitted to [address] for treatment of Right hip pain that occurred from a fall at home, patient and family reported the fall occurred few days before patient was admitted to hospital. Upon evaluation in the ED, it was discovered that patient has UTI and altered mental status possibly r/t UTI in which patient is being treated with IV Abts. Patient was on NS running at 75 ML/Hr. Patient is alert and oriented to self and date occassionally, aware that she is at hospital, confused at times with situation and has a hard time verbally responding with questions asked, speech is clear, but stutters at times and loses track of conversation easily, also has a hard time completing sentences. Requires frequent verbal queing with meal times, set up assist with meals. Patient is a 2 person moderate assist with gait belt and walker, patient has refused to transfer this shift by stating " i don't want to move, i can't , i am scared from my fall." This nurse educated patient and reassured patient that she would have 2 people to assist her with ambulation and she would not fall but patient continued to refuse. Patient has been incontinent of urine this shift, disposable briefs on at all times. Turned q 2 hours while in bed. Lungs are diminished in BL bases, bowel sounds are active in all 4 quadrants, adbomen is soft and non tender, HRR S1S2 auscultated with irregular rhythm, skin is in tact. +2 pitting edema present in RLE, patient complains of slight pain in Right knee in which she receives PRN tylenol for. Patient has not complained of pain this shift. Patient is on a ADA diet. Patient has had family present at the bedside for a majority of this shift. Patient is being transferred to [facility] to room 440 for continuing treatment of right knee pain, ortho evaluation, and higher level of care. Family and patient has been informed and educated by this nurse and Dr. Junior, at bedside, the reasoning for transferring patient to [facility]. Patient and family verbally verified understanding of education received. The following instructions and handouts were given: right hip pain, orth follow up. IV present in in RW 22g, patent, flushes and aspirates. Capped. Transparent Dressing still in place. Patient transferred to [facility] [address] room 440 via EMS. Report given to Thierno SALAZAR at 1330, patient family present at time of transfer. Transfered to [facility] via EMS, transfer packet given to EMS upon arrival to unit at 1518.
--- NOTE | 2019-01-28 21:27 | DS ---
DATE OF DISCHARGE: 01/28/2019 HISTORY OF PRESENT ILLNESS: The patient is an 88-year-old female patient who was admitted with a complaint of pain in her right lower extremity. She apparently fell almost a week ago, has not been able to walk with assistance, but since Sunday morning, she was unable to walk. Originally, she feels that she tries to stand up, but ended up falling backward on to her buttocks causing pain in her right knee joint and increased pain with movement and walking. She was seen in the Emergency Room, was extensively investigated. Her x-ray of the pelvis, right hip showed that there is no acute osseous injury of the right hip and her right knee showed that she has suprapatellar joint effusion, no fracture or dislocation, osteoarthritis and joint space narrowing with osteophytes of all 3 compartments as well as arterial vascular calcification, ____ meniscal and meniscal chondrocalcinosis. She was found also to have other abnormalities in her labs including hyponatremia, acute on chronic kidney injury and hypercalcemia. She was admitted, started on IV normal saline to basically treat her as a form of treatment for hypercalcemia and to correct her hyponatremia, as her calcium was 11.4 and corrected for her hyponatremia is probably about 12.5. On previous admission, her intact parathyroid hormone was 373 and her serum phosphorus was only 1.4. She unfortunately continued to have severe pain and inability to walk and I was concerned that she might have arthrosis and therefore, I did discontinue or held her Coumadin and the patient was transferred to [facility] to consult the orthopedic surgeon as well as the general surgeon for primary hyperparathyroidism and hypercalcemia and/or Dr. Rocha to assist with management of her hypercalcemia medically. PHYSICAL EXAMINATION: GENERAL: When I saw her this morning, she looked well and was clearly in no apparent respiratory distress, pale, but no jaundice or cyanosis. No lymphadenopathy, no thyromegaly. No jugular venous distension. No limb edema. VITAL SIGNS: Her heart rate was 86, blood pressure was 119/74, temperature was 98.7, respiratory rate was 18 and oxygen saturation was 96%. HEAD, EYES, EARS, NOSE AND THROAT: Showed normocephalic, atraumatic. NECK: Supple. HEART: Showed normal first and second heart sounds. No gallop, rub or murmur. CHEST: Clear to auscultation. No crepitation or rhonchi. ABDOMEN: Distended, soft, nontender. No guarding or rigidity. No organomegaly. All hernial orifice intact. Bowel sounds normal. NEUROLOGIC: She is awake, alert, responding appropriately. Cranial nerves intact. She moves upper extremities without difficulty; however, she is having severe pain in her right lower extremity and unable to move. Her intake over the last 24 hours was 899. No output was recorded. LABORATORY DATA: Her lab work this morning showed her prothrombin time was 15.6, INR 1.4. Her white cell count was 10,900, hemoglobin 12.5, hematocrit 37.6, MCV 101, and platelet count of 222,000. Her chemistry as of this morning showed that her serum sodium is up to 135, potassium 4.1, chloride 107, bicarbonate 20, anion gap of 8, BUN 29, creatinine 1.6, estimated GFR was 30 mL per minute. Her glucose was 185, calcium was 10.1. Total bilirubin and alkaline phosphatase normal. AST, ALT slightly elevated. Total protein was 5.9, albumin was 1.7. Her prothrombin time was 15.6, INR 1.4. DISCHARGE MEDICATIONS: The patient was transferred to [facility] to continue on acetaminophen 650 mg p.o. every 6 hours, lactobacillus rhamnosus 1 capsule twice a day, levothyroxine 50 mcg once a day, latanoprost 1 drop to both eyes at bedtime, simvastatin 40 mg at bedtime, Lantus 20 units at bedtime and she is also on Humalog insulin before meals. She is on meropenem 500 mg once a day. She was also discharged on metoprolol succinate 50 mg daily, linagliptin 5 mg once a day, gabapentin 300 mg 3 times a day, dorzolamide 1 drop to both eyes twice a day, allopurinol 100 mg once a day. She is on normal saline at 75 mL per hour. PLAN: My plan is to consult the orthopedic surgeon as well as general surgeon and Dr. Rocha, the oncologist for management of her right lower extremity pain as well as possible either treatment to her primary hyperparathyroidism with markedly elevated intact PTH of 353 and/or medical treatment. CASEY MCKENZIE MD DR: JATIN/niurka JOB#: [id number] / [id number]
== END 2019-01-28 15:29 | disposition short-term general hospital (02) | DRG 555 ==
LOC: ER 14:23 → 1 SOUTH 17:36
PROVIDERS: ADMIT Internal Medicine; ATTEND Internal Medicine
DX: M25.561 Pain in right knee (principal); N17.0 Acute kidney failure with tubular necrosis; E87.1 Hypo-osmolality and hyponatremia; N18.9 Chronic kidney disease, unspecified; M19.90 Unspecified osteoarthritis, unspecified site; I48.91 Unspecified atrial fibrillation; E78.5 Hyperlipidemia, unspecified; E78.00 Pure hypercholesterolemia, unspecified; E11.22 Type 2 diabetes mellitus with diabetic chronic kidney disease; H40.9 Unspecified glaucoma; I12.9 Hypertensive chronic kidney disease with stage 1 through stage 4 chronic kidney disease, or unspecified chronic kidney disease; I25.10 Atherosclerotic heart disease of native coronary artery without angina pectoris; M11.269 Other chondrocalcinosis, unspecified knee; R32 Unspecified urinary incontinence; E21.3 Hyperparathyroidism, unspecified; M10.9 Gout, unspecified; Z90.710 Acquired absence of both cervix and uterus; Z88.0 Allergy status to penicillin; Z88.2 Allergy status to sulfonamides; Z90.49 Acquired absence of other specified parts of digestive tract
CPT/HCPCS: 36415; 72192; 73502; 73562; 73700; 80053; 81001; 82947; 85025; 85027; 85610; 87086; 87186; J1815; J2185; 99285-25; J7030

== ENCOUNTER 2019-01-31 11:29 | Inpatient (IN) | payer MEDICARE, MEDICAID ==
[~2019-01-31] VITALS: Ht 167.6 cm; Wt 77.1 kg
[2019-01-31 15:39] VITALS: BP 134/86
[2019-01-31] MEDS ORDERED: DEXTROSE 50% 25 GM / 50ML DISP.SYRIN. IV PRN (16:45)
--- NOTE | 2019-01-31 17:03 | NUR ---
Swing Bed Admission Patient Handbook for Shelter given to patient. Nursing Problem: Weakness. Right knee and hip pain Cognitive/Behavioral: alert and oriented to person, place and situation. Forgetful at times, fearful with transfers. Pain: Patient currently reports no pain Respiratory Status: lungs are diminished in BL bases, no cough or Soa observed. 02 RA. Skin: moderate ecchymosis observed in BILATERAL UPPER EXTREMITIES, STATED BY PATIENT TO BE FROM FALLS AND JUST BRUISING EASILY. Bowel/Bladder Continence: INCONTINENT OF BOWEL AND BLADDER, WEARS DISPOSABLE BRIEFS, CAN USE BED SIDE COMMODE AT TIMES. ADL Functional Status: X 2-3 MAXIMUM ASSIST WITH WALKER AND GAIT BELT WITH TRANSFERRING TO WHEELCHAIR FROM BED AND FROM BED TO WHEEL CHAIR, X 1 MAXIMUM ASSIST WITH DRESSING UPPER AND LOWER BODY. STAFF PROPELLED WHEEL CHAIR WHEN AMBULATING ON UNIT Fall(s) prior to admission? YES, PATIENT REPORTED THAT SHE FELL AT HOME ON 01/24/2019 AND HURT HER RIGHT HIP AND KNEE. Admitted from [facility] WHERE PATIENT WAS BEING TREATED FOR RIGHT HIP AND KNEE PAIN. Patient has been admitted to SNU for PT/OT EVAL AND TREAT. Patient is a DNR, patient of Dr. Junior'panda . Allergies to PNC, SULFA. Patient had fluid aspirated from right knee on at [facility] and also received a steroid injection in right knee on 01/30/2019. Bandaid is in place covering puncture site to right knee post steroid injection. Patient is a maximum assist x 2-3 with gait belt and RW, incontinent of bowel and bladder, wears disposable briefs, lungs are diminished in bl bases, no cough or soa noted, respirations are even and unlabored. Patient is alert and oriented x 3 with episodes of forgetfulness, loses train of though easily and has a hard time completing sentences. Speech is clear, but patient appears to be easily worn out with speaking. Patient is a set up assist with meals, ADA diet, moderate assist of meals x 1, requries frequent verbal queing with meal times. Patient has a history of hyperparathyroidism, [place], Dementia, DM, Hypercalcemia, AFIB, OSTEAOARTHRITIS, CHOLEY, APPEY, A/C KDINEY INJURY, HTN. Abdomen is soft and nontender, obese with active bowel sounds in all 4 quadrants, HRR auscultated with irregular rhythm. Patient has missing teeth in upper jaw, wears glasses and is [place]. Patient has been oriented to unit upon arrival. Son Edin was present at bedside upon admission. Patient has been cooperative this shift with staff, patient stated to this typewriter mechanic " I am so scared of falling, thats why every time i move from the bed to chair i scream." Patient has been educated about transfers with staff and use of the call light, patient verbally verified understanding of education received. Dr. Junior notified via telephone of patient's arrival to SNU. New orders are in place, patient is currently resting in room with call light and fresh fluids with in reach.
[2019-01-31] MEDS ORDERED: WARFARIN 3 MG TABLET. PO SCH (23:00)
[2019-01-31] MEDS: GABAPENTIN 300 MG CAPSULE. PO SCH (23:04)
[2019-01-31] MEDS: DORZOLAMIDE/TIMOLOL 2%/0.5% OPHTH SOLUTION 10ML BOTTLE. OU SCH (23:04)
[2019-01-31] MEDS: LATANOPROST 0.005% OPHTH SOLUTION 2.5ML BOTTLE. OU SCH (23:04)
[2019-01-31] MEDS: SIMVASTATIN 40 MG TABLET. PO SCH (23:04)
[2019-01-31] MEDS: INSULIN GLARGINE 300 UNITS/3 ML INSULN.PEN. SQ SCH (23:13)
--- NOTE | 2019-02-01 02:51 | NUR ---
Swing Bed Admission Patient Handbook for [facility] given to patient. Nursing Problem: Weakness. Right knee and hip pain Cognitive/Behavioral: alert and oriented to person, place and situation. Forgetful at times, fearful with transfers. Pain: Patient currently reports no pain Respiratory Status: no cough or Soa observed. 02 RA. Skin: moderate ecchymosis observed in BILATERAL UPPER EXTREMITIES, STATED BY PATIENT TO BE FROM FALLS AND JUST BRUISING EASILY. Bowel/Bladder Continence: INCONTINENT OF BOWEL AND BLADDER, WEARS DISPOSABLE BRIEFS, CAN USE BED SIDE COMMODE AT TIMES. ADL Functional Status: X 2-3 MAXIMUM ASSIST WITH WALKER AND GAIT BELT WITH TRANSFERRING TO WHEELCHAIR FROM BED AND FROM BED TO WHEEL CHAIR, X 1 MAXIMUM ASSIST WITH DRESSING UPPER AND LOWER BODY. STAFF PROPELLED WHEEL CHAIR WHEN AMBULATING ON UNIT Fall(s) prior to admission? YES, PATIENT REPORTED THAT SHE FELL AT HOME ON 01/24/2019 AND HURT HER RIGHT HIP AND KNEE. Admitted from [facility] WHERE PATIENT WAS BEING TREATED FOR RIGHT HIP AND KNEE PAIN. Patient has been admitted to SNU for PT/OT EVAL AND TREAT. Patient is a DNR, patient of Dr. Junior's . Allergies to PNC, SULFA. Patient had fluid aspirated from right knee on at [facility] and also received a steroid injection in right knee on 01/30/2019. Bandaid is in place covering puncture site to right knee post steroid injection. Patient is a maximum assist x 2-3 with gait belt and RW, incontinent of bowel and bladder, wears disposable briefs, lungs are diminished , no cough or soa noted, respirations are even and unlabored. Patient is alert and oriented x 3 with episodes of forgetfulness, loses train of though easily and has a hard time completing sentences. Speech is clear, but patient appears to be easily worn out with speaking. ADA diet, Patient has a history of hyperparathyroidism, [place], Dementia, DM, Hypercalcemia, AFIB, OSTEAOARTHRITIS, CHOLEY, APPEY, A/C KDINEY INJURY, HTN. Abdomen is soft and nontender, obese with active bowel sounds in all 4 quadrants, HRR auscultated with irregular rhythm. Patient has missing teeth in upper jaw, wears glasses and is [place]. Patient has been oriented plan of care. Patient has been cooperative this shift with staff. Patient has been educated about transfers with staff and use of the call light, patient verbally verified understanding of education received. Dr. Junior notified via telephone of medications and received order to renew mediations. Patient is currently resting in room with call light and fresh fluids with in reach.
[2019-02-01] MEDS: LEVOTHYROXINE 50 MCG TABLET PO SCH (05:47)
[2019-02-01 06:06] VITALS: BP 132/77
[2019-02-01] MEDS ORDERED: traMADol 50 MG TABLET PO PRN (08:45)
[2019-02-01] MEDS: INSULIN LISPRO 300 UNITS/3 ML INSULN.PEN. SQ SCH ×4 (08:56→19:14)
[2019-02-01] MEDS: DORZOLAMIDE/TIMOLOL 2%/0.5% OPHTH SOLUTION 10ML BOTTLE. OU SCH ×2 (08:57→21:09)
[2019-02-01] MEDS: ALLOPURINOL 100 MG TABLET. PO SCH (08:57)
[2019-02-01] MEDS: METOPROLOL SUCC 24HR ER 50 MG TAB.ER.24H. PO SCH (08:58)
[2019-02-01] MEDS: GABAPENTIN 300 MG CAPSULE. PO SCH ×3 (08:58→21:09)
[2019-02-01] MEDS: LINAGLIPTIN 5 MG TABLET PO SCH (08:58)
[2019-02-01] MEDS ORDERED: WARFARIN 5 MG TABLET. PO ONE (14:15)
[2019-02-01 14:19] LABS: HEMATOCRIT 40.3 % (36.0-47.0); RED BLOOD COUNT 3.99 x10^6/uL (3.50-5.40); WHITE BLOOD COUNT 11.5 x10^3/uL (4.0-11.0)
[2019-02-01 14:21] LABS: ALBUMIN 1.9 g/dL (3.4-5.0); ALBUMIN/GLOBULIN RATIO 0.4 (1.0-1.7); CALCIUM 11.2 mg/dL (8.5-10.1); CREATININE 1.7 mg/dL (0.6-1.0); GFR 28.4; POTASSIUM 5.3 mmol/L (3.5-5.1); TOTAL BILIRUBIN 0.4 mg/dL (0.2-1.0); TOTAL PROTEIN 6.4 g/dL (6.4-8.2)
[2019-02-01] MEDS: IV NORMAL SALINE 1,000ML 1,000 ML IV SCH (15:30)
[2019-02-01] MEDS ORDERED: WARFARIN SODIUM PO SCH (16:00)
--- NOTE | 2019-02-01 16:04 | HP ---
ADMIT DATE: 01/31/2019 HISTORY OF PRESENT ILLNESS: The patient is an 88-year-old female patient who was transferred to [facility] as she has fallen and developed severe pain in her right knee joint. She also has hypercalcemia and was diagnosed with primary hyperparathyroidism. She was seen in consultation by the surgical team and she has had thyroid ultrasound, which showed mass on the lower end of the right lobe of the thyroid gland. 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 She was seen in consultation also by the orthopedic surgeon, Dr. Peralta who aspirated 15 mL of yellow synovial fluid and injected 80 mg of Solu-Medrol. She was scheduled for surgery at another date and Dr. Watts will arrange that with her and her family. However, the patient continued to be deconditioned and weak and it was felt that the patient would benefit from further rehabilitation and therefore she was admitted to [facility]. PAST MEDICAL HISTORY: Significant for type 2 diabetes mellitus, hypertension, hyperlipidemia, and hypothyroidism. She is known to have atrial fibrillation, rate controlled, well anticoagulated. She has a history of gout. 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 She has history of osteomyelitis involving her right fifth digit. PAST SURGICAL HISTORY: Significant for left eye surgery, total abdominal hysterectomy, bilateral salpingo-oophorectomy, and appendectomy. ALLERGIES: SHE IS ALLERGIC TO PENICILLIN AND SULFA DRUGS. FAMILY HISTORY: She has one sister, still alive and younger, but does not if she has any medical problems. Her father in his 70s, but she does not know the cause of his . Mother also was , but does not know the cause of her . SOCIAL HISTORY: She is , has 2 sons and 1 daughter. She currently lives with her daughter. She never smoked, does not drink alcohol. 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 MEDICATIONS: She is currently on following medications: She is on warfarin 3 mg daily from Sunday to Sunday and 1.5 mg on Sunday and Sunday. She is on simvastatin 40 mg at bedtime, metoprolol succinate 50 mg daily, gabapentin 300 mg 3 times a day, dorzolamide/timolol 1 drop to both eyes twice a day, latanoprost 1 drop to both eyes at bedtime, linagliptin for Tradjenta 5 mg once a day. She is on Lantus insulin 20 units subcutaneously at bedtime, levothyroxine sodium 50 mcg daily, allopurinol 100 mg once a day. REVIEW OF SYSTEMS: As per history of present illness. PHYSICAL EXAMINATION GENERAL: When I saw her this morning, she was resting slightly propped up in bed, in a recliner, in no apparent distress. She was pale, but no jaundice, cyanosis, or thyromegaly. No jugular venous distension. No limb edema. VITAL SIGNS: Her heart rate was 87, blood pressure was 132/77, temperature was 97.3, respiratory rate 20, and oxygen saturation was 96%. HEAD, EYES, EARS, NOSE, AND THROAT: Showed normocephalic, atraumatic. NECK: Supple. HEART: Showed normal first and second heart sounds. No gallop, rub, or murmur. CHEST: Clear to auscultation. No crepitation or rhonchi. ABDOMEN: Distended, soft, nontender. NEUROLOGIC: She was sleepy, but arousable. All cranial nerves intact. She moved extremities without difficulty. LABORATORY DATA: Her lab work this morning showed her prothrombin time was 12.7, INR 1.3. Her chemistry and other lab works are still pending at the time of this dictation. My plan is given that her INR is subtherapeutic, I will increase her Coumadin for today to 5 mg. I will obviously go back to her usual schedule once the INR is within therapeutic range. We will obviously continue with physical and occupational therapy. 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 She underwent a thyroid ultrasound and sestamibi scan. All the findings are consistent with a large nodule in the lower end of the right thyroid lobe consistent with parathyroid adenoma. The patient has multiple other medical problems including: A. Type 2 diabetes mellitus. B. Hypertension. C. Hyperlipidemia. D. Atrial fibrillation, rate controlled, well anticoagulated. E. Glaucoma. We will obviously consult physical and occupational therapy to improve her mobility before she can be discharged back home. She will have Dr. Watts arrange for surgery for her parathyroidectomy and will schedule that with her and her family. CASEY MCKENZIE MD DR: JATIN/niurka JOB#: [id number] / [id number]
[2019-02-01 18:24] VITALS: BP 148/88
[2019-02-01] MEDS: LATANOPROST 0.005% OPHTH SOLUTION 2.5ML BOTTLE. OU SCH (21:09)
[2019-02-01] MEDS: SIMVASTATIN 40 MG TABLET. PO SCH (21:09)
[2019-02-01] MEDS: INSULIN GLARGINE 300 UNITS/3 ML INSULN.PEN. SQ SCH (21:19)
--- NOTE | 2019-02-02 03:14 | NUR ---
Swing Bed Admission Patient Handbook for [facility] given to patient. Nursing Problem: Weakness. Right knee and hip pain Cognitive/Behavioral: alert and oriented to person, place and situation. Forgetful at times, fearful with transfers. Pain: Patient currently reports no pain Respiratory Status: no cough or Soa observed. 02 RA. Skin: moderate ecchymosis observed in BILATERAL UPPER EXTREMITIES, STATED BY PATIENT TO BE FROM FALLS AND JUST BRUISING EASILY. Bowel/Bladder Continence: INCONTINENT OF BOWEL AND BLADDER, WEARS DISPOSABLE BRIEFS, CAN USE BED SIDE COMMODE AT TIMES. ADL Functional Status: X 2- ASSIST WITH WALKER AND GAIT BELT FROM WHEELCHAIR TO BED AND FROM X 1 MAXIMUM ASSIST WITH DRESSING UPPER AND LOWER BODY. Fall(s) prior to admission? YES, PATIENT REPORTED THAT SHE FELL AT HOME ON 01/24/2019 AND HURT HER RIGHT HIP AND KNEE. Admitted from [facility] WHERE PATIENT WAS BEING TREATED FOR RIGHT HIP AND KNEE PAIN. Patient has been admitted to SNU for PT/OT EVAL AND TREAT. Patient is a DNR, patient of Dr. Junior's . Allergies to PNC, SULFA. Patient had fluid aspirated from right knee on at [facility] and also received a steroid injection in right knee on 01/30/2019. Band aid is in place covering puncture site to right knee post steroid injection. Patient is a maximum assist x 2-3 with gait belt and RW, incontinent of bowel and bladder, wears disposable briefs, lungs are diminished , no cough or soa noted, respirations are even and unlabored. Patient is alert and oriented x 3 with episodes of forgetfulness, loses train of though easily and has a hard time completing sentences. Speech is clear, but patient appears to be easily worn out with speaking. ADA diet, Patient has a history of hyperparathyroidism, [place], Dementia, DM, Hypercalcemia, AFIB, OSTEAOARTHRITIS, CHOLEY, APPEY, A/C KDINEY INJURY, HTN. Abdomen is soft and nontender, obese with active bowel sounds in all 4 quadrants, HRR auscultated with irregular rhythm. Patient has missing teeth in upper jaw, wears glasses and is [place]. Patient has been oriented plan of care. Patient has been cooperative this shift with staff. Patient has been educated about transfers with staff and use of the call light, patient verbally verified understanding of education received. Patient is currently resting in room with call light and fresh fluids with in reach.
[2019-02-02] MEDS: LEVOTHYROXINE 50 MCG TABLET PO SCH (05:59)
[2019-02-02] MEDS: IV NORMAL SALINE 1,000ML 1,000 ML IV SCH ×2 (06:00→21:31)
[2019-02-02 06:20] VITALS: BP 117/74
[2019-02-02] MEDS: INSULIN LISPRO 300 UNITS/3 ML INSULN.PEN. SQ SCH ×3 (08:00→17:00)
[2019-02-02] MEDS: ALLOPURINOL 100 MG TABLET. PO SCH (08:22)
[2019-02-02] MEDS: DORZOLAMIDE/TIMOLOL 2%/0.5% OPHTH SOLUTION 10ML BOTTLE. OU SCH ×2 (08:22→21:23)
[2019-02-02] MEDS: LINAGLIPTIN 5 MG TABLET PO SCH (08:22)
[2019-02-02] MEDS: GABAPENTIN 300 MG CAPSULE. PO SCH ×3 (08:22→21:23)
[2019-02-02] MEDS: METOPROLOL SUCC 24HR ER 50 MG TAB.ER.24H. PO SCH (08:22)
--- NOTE | 2019-02-02 11:35 | NUR ---
SWING BED DOCUMENTATION Patient Handbook for [facility] given to patient. Nursing Problem: Weakness. Right knee and hip pain. [facility] PATIENT WAS BEING TREATED FOR RIGHT HIP AND KNEE PAIN. Cognitive/Behavioral: alert and oriented to person, place and situation. Forgetful at times, fearful with transfers, pt was tearful/crying this am when moving from commode to chair states "I cant help it, but I am scared". pt is weak when transferring and afraid to fall. x2 staff with gait belt and pt does okay. Pain: No pain at this time Respiratory Status: Lungs CTA/diminished, no cough, RA Skin: moderate ecchymosis observed in BILATERAL UPPER EXTREMITIES, STATED BY PATIENT TO BE FROM FALLS AND JUST BRUISING EASILY.pt has been stuck multiple times for labs and has more bruising from this morning. Bowel/Bladder Continence: INCONTINENT OF BOWEL AND BLADDER, WEARS DISPOSABLE BRIEFS, CAN USE BED SIDE COMMODE AT TIMES. ADL Functional Status: X 2-3 MAXIMUM ASSIST WITH WALKER AND GAIT BELT WITH TRANSFERRING TO WHEELCHAIR FROM BED AND FROM BED TO WHEEL CHAIR, X 1 MAXIMUM ASSIST WITH DRESSING UPPER AND LOWER BODY. Fall(s) prior to admission? YES, PATIENT REPORTED THAT SHE FELL AT HOME ON 01/24/2019 AND HURT HER RIGHT HIP AND KNEE.
[2019-02-02] MEDS ORDERED: LIDOCAINE 1% Multi-Dose 20 ML VIAL. ONE (12:50)
[2019-02-02] MEDS ORDERED: LIDOCAINE 2% 20 ML VIAL. IJ ONE (13:00)
[2019-02-02] MEDS ORDERED: LIDOCAINE 1% Multi-Dose 20 ML VIAL. INJ ONE (13:00)
[2019-02-02 13:19] LABS: BASO % 0 % (0-3); EOS # 0.2 x10^3/uL (0.0-0.7); EOS % 2 % (0-3); HEMATOCRIT 40.8 % (36.0-47.0); HEMOGLOBIN 13.2 g/dL (12.0-15.5); LYMPH # 1.1 x10^3/uL (1.0-4.8); LYMPH % 12 % (24-48); MEAN CORPUSCULAR HEMOGLOBIN 33 pg (25-35); MEAN CORPUSCULAR HGB CONC 32 g/dL (31-37); MEAN CORPUSCULAR VOLUME 101 fL (79-100); MONO # 0.6 x10^3/uL (0.0-1.1); MONO % 6 % (0-9); NEUT # 7.8 x10^3uL (1.8-7.7); NEUT % 80 % (31-73); PLATELET COUNT 304 x10^3/uL (140-400); RED BLOOD COUNT 4.03 x10^6/uL (3.50-5.40); RED CELL DISTRIBUTION WIDTH 14.2 % (11.5-14.5); WHITE BLOOD COUNT 9.7 x10^3/uL (4.0-11.0)
[2019-02-02 13:34] LABS: ALBUMIN 1.9 g/dL (3.4-5.0); ALBUMIN/GLOBULIN RATIO 0.4 (1.0-1.7); CALCIUM 10.8 mg/dL (8.5-10.1); CREATININE 1.3 mg/dL (0.6-1.0); GFR 38.7; POTASSIUM 4.6 mmol/L (3.5-5.1); TOTAL BILIRUBIN 0.4 mg/dL (0.2-1.0); TOTAL PROTEIN 6.2 g/dL (6.4-8.2)
--- NOTE | 2019-02-02 13:45 | NUR ---
Vascular Consult for PICC: Dr Junior wanting a picc line considering patient may need to go to [facility] for Surgery and unable to draw labs in am. Patient has 22g in LUE placed by me yesterday and running well. After consulting with transformer shop supervisor, picc line will more than likely not be covered by insurance due to Swing bed. Was able to easily draw labs using ultrasound in R lower extremity using butterfly. Assessed R U E and no vessels large enough to accomodate picc. LUE has one vessel the brachial, right next to brachial artery. Using the Bard machine I was able to measure the vessel and if I inserted a single lumen picc in brachial would take up 38% of vessel, and this is before lidocaine which can shrink the vessel. At this time I chose not to place an accucath considering there is one possible vessel for picc. Roxie VOICE NETWORK ENGINEER CMSRN [facility]
[2019-02-02] MEDS ORDERED: WARFARIN 3 MG TABLET. PO ONE (16:30)
--- NOTE | 2019-02-02 17:52 | NUR ---
Consulted with black powder glazing operator, Swing patient would have to be changed to inpatient for PICC line. Picc only ordered for lab to be able to draw blood and this is not an indication for PICC line at this time. Blood was easily drawn using ultrasound earlier today. Labs are improving and no need for patient to be inpatient at this time. Vessels are small and cannot accomodate a picc at this time, see picture in chart. Dr Junior paged to go over situation with. Roxie SALAZAR
[2019-02-02 18:50] VITALS: BP 129/83
--- NOTE | 2019-02-02 21:17 | PN ---
DATE: 02/02/2019 SUBJECTIVE: The patient is resting, slightly propped up in bed, in no apparent respiratory distress. She apparently worked with physical therapy and has walked significant distance, has no more pain in her right knee joint after the steroid injection. Fortunately, her blood sugar is high, probably a reflection of the steroid injection. Her kidney function also worsening. Her creatinine has risen from 1.4-1.7. She has hyperkalemia. Calcium is high at 11.2, corrected for serum albumin, it is 12.8. She has also deranged liver enzymes and unfortunately, we have no vascular access, so we had recommended a PICC line to allow labwork as she will need at least initially monitoring her PT/INR as she is on Coumadin and also some IV fluid to flush the calcium as eventually and only the solution for her to have this parathyroid removed and I will talk to Dr. Watts tomorrow to see if we can do this surgery sooner. PHYSICAL EXAMINATION: GENERAL: When I examined her this afternoon, she looked well and was clearly in no apparent distress, pale, but no jaundice, cyanosis, or thyromegaly. No jugular venous distension. Mild bilateral lower limb edema. VITAL SIGNS: Her heart rate was 85, blood pressure was 117/74, temperature was 97.4, respiratory rate was 18, and oxygen saturation was 96%. HEAD, EYES, EARS, NOSE AND THROAT: Normocephalic, atraumatic. NECK: Supple. HEART: Showed normal first and second heart sounds. No gallop, rub or murmur. CHEST: Clear to auscultation. No crepitation or rhonchi. ABDOMEN: Distended, soft, nontender. No guarding or rigidity. No organomegaly. All hernial orifices intact. Bowel sounds normal. NEUROLOGIC: She is awake, alert, responding appropriately. All cranial nerves intact. She moves extremities without difficulty. Her intake was 516, output was recorded. No lab works available today; however, we are planning to place a PICC line and hopefully, repeat her lab work, continue with IV normal saline. ASSESSMENT: 1. Severe right knee joint osteoarthritis involving all the 3 compartments and also chondrocalcinosis responded to synovial fluid removal injection of steroids. 2. Hypercalcemia with a serum calcium corrected for serum albumin is 12.8. Primary hyperparathyroidism with marked elevated intact PTH of 353. Thyroid scan and sestamibi scan, all consistent with parathyroid adenoma in the lower pole of the right thyroid lobe. 3. She has multiple other medical problems including: A. Type 2 diabetes mellitus, which is made worse by the steroids. B. Hypertension. C. Hyperlipidemia. D. Atrial fibrillation, rate controlled on Coumadin, although the INR is subtherapeutic. E. Glaucoma. PLAN: To continue with PT, OT. Continue with the IV fluid. I will again attempt to contact Dr. Watts tomorrow to expedite parathyroidectomy. CASEY MCKENZIE MD DR: JATIN/niurka JOB#: [id number] / [id number]
[2019-02-02] MEDS: SIMVASTATIN 40 MG TABLET. PO SCH (21:23)
[2019-02-02] MEDS: LATANOPROST 0.005% OPHTH SOLUTION 2.5ML BOTTLE. OU SCH (21:23)
[2019-02-02] MEDS: INSULIN GLARGINE 300 UNITS/3 ML INSULN.PEN. SQ SCH (21:44)
--- NOTE | 2019-02-03 03:30 | NUR ---
SWING BED NURSING NOTE Patient Handbook for [facility] given to patient. Nursing Problem: Weakness. Right knee and hip pain. Admitted from [facility] where patient was being treated for right hip and knee pain. Cognitive/Behavioral: Alert and oriented to person, place and situation. Forgetful at times, fearful with transfers. Patient is weak when transferring and afraid to fall. x2 staff with gait belt and pt does okay. Pain: Denies pain at this time Respiratory Status: Lungs CTA/diminished, no cough, RA Skin: moderate ecchymosis observed in bilateral upper extremities, stated by patient to be from falls and bruising easily. Patient has been stuck multiple times for labs. Bowel/Bladder Continence: INCONTINENT OF BOWEL AND BLADDER, WEARS DISPOSABLE BRIEFS, CAN USE BED SIDE COMMODE AT TIMES. ADL Functional Status: X 2-3 MAXIMUM ASSIST WITH WALKER AND GAIT BELT WITH TRANSFERRING TO WHEELCHAIR FROM BED AND FROM BED TO WHEEL CHAIR, X 1 MAXIMUM ASSIST WITH DRESSING UPPER AND LOWER BODY. Fall(s) prior to admission? YES, PATIENT REPORTED THAT SHE FELL AT HOME ON 01/24/2019 AND HURT HER RIGHT HIP AND KNEE.
[2019-02-03] MEDS: LEVOTHYROXINE 50 MCG TABLET PO SCH (05:53)
[2019-02-03 06:43] LABS: ALBUMIN 1.9 g/dL (3.4-5.0); ALBUMIN/GLOBULIN RATIO 0.4 (1.0-1.7); CALCIUM 10.3 mg/dL (8.5-10.1); CREATININE 1.2 mg/dL (0.6-1.0); GFR 42.4; POTASSIUM 4.8 mmol/L (3.5-5.1); TOTAL BILIRUBIN 0.3 mg/dL (0.2-1.0); TOTAL PROTEIN 6.2 g/dL (6.4-8.2)
[2019-02-03 07:36] VITALS: BP 148/100
[2019-02-03] MEDS: INSULIN LISPRO 300 UNITS/3 ML INSULN.PEN. SQ SCH ×3 (08:00→16:27)
[2019-02-03] MEDS: LINAGLIPTIN 5 MG TABLET PO SCH (08:12)
[2019-02-03] MEDS: DORZOLAMIDE/TIMOLOL 2%/0.5% OPHTH SOLUTION 10ML BOTTLE. OU SCH ×2 (08:12→20:32)
[2019-02-03] MEDS: ALLOPURINOL 100 MG TABLET. PO SCH (08:13)
[2019-02-03] MEDS: METOPROLOL SUCC 24HR ER 50 MG TAB.ER.24H. PO SCH (08:13)
[2019-02-03] MEDS: GABAPENTIN 300 MG CAPSULE. PO SCH ×3 (08:13→20:32)
[2019-02-03] MEDS: IV NORMAL SALINE 1,000ML 1,000 ML IV SCH (08:15)
--- NOTE | 2019-02-03 14:30 | NUR ---
SWING BED NURSING NOTE Patient Handbook for [facility] given to patient. Nursing Problem: Weakness noted to Right knee and hip pain. Admitted from [facility] where patient was being treated for right hip and knee pain. Requires PT/OT for gait strengthening. Cognitive/Behavioral: Alert and oriented to person, place and situation. Forgetful at times and very fearful with transfers. Patient is weak when transferring and afraid to fall but is able to transfer using gait belt and walker to bathroom and no longer requires BSC. Patient was able to ambulate using SBA with walker to day room for all meals today. Pain: Denies pain at this time Respiratory Status: Lungs CTA/diminished. Denies SOA upon exertion. No cough noted and placed on RA. Skin: moderate ecchymosis observed in bilateral upper extremities, stated by patient to be from falls and bruising easily. Patient has been stuck multiple times for labs. Bowel/Bladder Continence: INCONTINENT OF BOWEL AND BLADDER, WEARS DISPOSABLE BRIEFS. Patient is to be checked every 2 hours due to incontinent episodes and frequent urinations. ADL Functional Status: Patient requires 1 person ASSIST WITH WALKER AND GAIT BELT WITH TRANSFERRING. Fall(s) prior to admission? YES, PATIENT REPORTED THAT SHE FELL AT HOME ON 01/24/2019 AND HURT HER RIGHT HIP AND KNEE.
--- NOTE | 2019-02-03 14:35 | NUR ---
Dr. Junior spoke with Dr. Watts, plan is to transfer to [facility] to have surgery for parathyroid. Dr. Watts will discuss with pathology secretary/transcriptionist to schedule patient for surgery and will left us know. IV infiltrated today, nurse attempted x1 but unable to access. Patient cried when nurse attempted. Patient has multiple bruises to bilateral arms and has been stuck multiple times. Dr Junior aware and states to push fluids.
[2019-02-03] MEDS ORDERED: WARFARIN 3 MG TABLET. PO ONE (17:00)
[2019-02-03 18:07] VITALS: BP 139/85
[2019-02-03] MEDS: SIMVASTATIN 40 MG TABLET. PO SCH (20:32)
[2019-02-03] MEDS: LATANOPROST 0.005% OPHTH SOLUTION 2.5ML BOTTLE. OU SCH (20:32)
[2019-02-03] MEDS: INSULIN GLARGINE 300 UNITS/3 ML INSULN.PEN. SQ SCH (20:44)
--- NOTE | 2019-02-03 22:20 | NUR ---
SWING BED NURSING NOTE Patient Handbook for [facility] given to patient. Nursing Problem: Admitted from [facility] where patient was being treated for right hip and knee pain. Requires PT/OT for gait strengthening. Cognitive/Behavioral: Pt alert and oriented to person, place and situation. Forgetful at times and very fearful of falling with transfers. Pt resting in bed, watching TV at change of shift. Pain: Denies pain at this time Respiratory Status: Lungs CTA/diminished. Denies SOA upon exertion. No cough noted and pt on room air. Skin: Pt with moderate ecchymosis to bilateral upper extremities. Thin and friable. Coccyx red but intact, Calmoseptine applied PRN. Bowel/Bladder Continence: INCONTINENT OF BOWEL AND BLADDER, WEARS DISPOSABLE BRIEFS. Patient is to be checked every 2 hours due to incontinent episodes and frequent urinations. LMB 02/03 ADL Functional Status: Patient requires x1 assist with walker. Patient is weak when transferring and afraid to fall but is able to transfer using gait belt and walker. Pt was able to ambulate using SBA with walker to bathroom. Pt eats independently and takes medications whole.
[2019-02-04] MEDS: LEVOTHYROXINE 50 MCG TABLET PO SCH (05:41)
[2019-02-04 06:03] VITALS: BP 146/80
[2019-02-04] MEDS: INSULIN LISPRO 300 UNITS/3 ML INSULN.PEN. SQ SCH ×3 (07:32→16:52)
[2019-02-04] MEDS: LINAGLIPTIN 5 MG TABLET PO SCH (08:24)
[2019-02-04] MEDS: GABAPENTIN 300 MG CAPSULE. PO SCH ×3 (08:24→21:16)
[2019-02-04] MEDS: ALLOPURINOL 100 MG TABLET. PO SCH (08:24)
[2019-02-04] MEDS: METOPROLOL SUCC 24HR ER 50 MG TAB.ER.24H. PO SCH (08:24)
[2019-02-04] MEDS: DORZOLAMIDE/TIMOLOL 2%/0.5% OPHTH SOLUTION 10ML BOTTLE. OU SCH ×2 (08:39→21:16)
--- NOTE | 2019-02-04 10:40 | NUR ---
NURSING NOTE SURGERY PT IS TO BE PICKED UP AT 0615 BY FAMILY AND TAKEN TO OUTPATIENT SURGERY AT [place] TOMORROW 02/05/2019. THEY WOULD LIKE PT THERE AROUND 7. PHONE [phone] FAX [phone] THEY WILL KEEP PT OVERNIGHT AND PLAN TO DC HER BACK TO SNF HERE PER FAMILY REQUEST. WILL PRINT PT INFORMATION AND SEND WITH FAMILY TOMORROW. MARTIN CHAU.
--- NOTE | 2019-02-04 12:51 | NUR ---
SWING BED DOCUMENTATION Patient Handbook for [facility] given to patient. Nursing Problem: Weakness noted to Right knee and hip pain. Admitted from [facility] where patient was being treated for right hip and knee pain. Requires PT/OT for gait strengthening. Cognitive/Behavioral: Alert and oriented to person, place and situation. Forgetful at times and very fearful with transfers. Patient is weak when transferring and afraid to fall but is able to transfer using gait belt and walker to bathroom and no longer requires BSC. Patient was able to ambulate using SBA with walker to day room for all meals today. pt was a bit agitated that she has to go back to [facility] tomorrow for surgery. states she doesnt like all of the transferring around. Pain: Denies pain at this time Respiratory Status: Lungs CTA/diminished. Denies SOA upon exertion. No cough noted and placed on RA. Skin: moderate ecchymosis observed in bilateral upper extremities, stated by patient to be from falls and bruising easily. Patient has been stuck multiple times for labs. Bowel/Bladder Continence: INCONTINENT OF BOWEL AND BLADDER, WEARS DISPOSABLE BRIEFS. Patient is to be checked every 2 hours due to incontinent episodes and frequent urinations. ADL Functional Status: Patient requires 1 person ASSIST WITH WALKER AND GAIT BELT WITH TRANSFERRING. Fall(s) prior to admission? YES, PATIENT REPORTED THAT SHE FELL AT HOME ON 01/24/2019 AND HURT HER RIGHT HIP AND KNEE. pt son is picking her up tomorrow at 0615 to take her to outpatient surgery at [facility] and they will keep her overnight. plan to readmit pt here post surgery. pt is to have her thyroid removed. malika goodwin.
--- NOTE | 2019-02-04 13:41 | NUR ---
NURSING NOTE PT HAD TICK ON HER RIGHT OSBORN. TICK REMOVED AND ARE CLEANED. WILL CONTINUE TO MONITOR. MARTIN CHAU.
[2019-02-04] MEDS ORDERED: WARFARIN 3 MG TABLET. PO ONE (16:00)
[2019-02-04 18:34] VITALS: BP 140/79
[2019-02-04] MEDS: INSULIN GLARGINE 300 UNITS/3 ML INSULN.PEN. SQ SCH (20:18)
[2019-02-04] MEDS: LATANOPROST 0.005% OPHTH SOLUTION 2.5ML BOTTLE. OU SCH (21:16)
[2019-02-04] MEDS: SIMVASTATIN 40 MG TABLET. PO SCH (21:16)
--- NOTE | 2019-02-04 21:51 | NUR ---
SWING BED NURSING NOTE Nursing Problem: Admitted from [facility] where patient was being treated for right hip and knee pain. Requires PT/OT for gait strengthening. Cognitive/Behavioral: Pt alert and oriented to person, place and situation. Forgetful at times and very fearful of falling with transfers. Pt resting in her chair visiting with family at change of shift. Pain: Denies pain at this time Respiratory Status: Lungs CTA/diminished. Denies SOA upon exertion. No cough noted and pt on room air. Skin: Pt with moderate ecchymosis to bilateral upper extremities. Thin and friable. Coccyx red but intact, Calmoseptine applied PRN. Shower and linen change 02/04, unable to obtain antibacterial soap per surgical instructions. Bowel/Bladder Continence: INCONTINENT OF BOWEL AND BLADDER, WEARS DISPOSABLE BRIEFS. Patient is to be checked every 2 hours due to incontinent episodes and frequent urinations. LMB 02/03 ADL Functional Status: Patient requires x1 assist with walker. Patient is weak when transferring and afraid to fall, but is able to transfer using gait belt and walker. Pt eats independently and takes medications whole.
[2019-02-04] MEDS ORDERED: INSU100I11 SQ (22:28)
[2019-02-04] MEDS ORDERED: TRAM50TA PO (22:30)
[2019-02-05] MEDS: LEVOTHYROXINE 50 MCG TABLET PO SCH (04:55)
[2019-02-05] MEDS: ALLOPURINOL 100 MG TABLET. PO SCH (04:55)
[2019-02-05] MEDS: GABAPENTIN 300 MG CAPSULE. PO SCH (04:55)
[2019-02-05] MEDS: DORZOLAMIDE/TIMOLOL 2%/0.5% OPHTH SOLUTION 10ML BOTTLE. OU SCH (04:55)
--- NOTE | 2019-02-05 06:20 | NUR ---
VSS. Patient family member is here to accompany her to patient's outpatient surgery appt this am at [facility]. Patient assisted off the unit by family and staff member via wheelchair. All belongings with patient at time of discharge.
[2019-02-05 06:29] VITALS: BP 155/101
[2019-02-06] MEDS ORDERED: OXYC1TAB15 PO (19:13)
[2019-02-06] MEDS ORDERED: LACT1CAP21 PO (19:13)
== END 2019-02-05 06:20 | disposition short-term general hospital (02) | DRG 554 ==
LOC: LND 15:19
PROVIDERS: ADMIT Internal Medicine; ATTEND Internal Medicine
DX: M17.11 Unilateral primary osteoarthritis, right knee (principal); D35.1 Benign neoplasm of parathyroid gland; E03.9 Hypothyroidism, unspecified; E11.9 Type 2 diabetes mellitus without complications; E78.5 Hyperlipidemia, unspecified; E87.5 Hyperkalemia; H40.9 Unspecified glaucoma; M11.261 Other chondrocalcinosis, right knee; I10 Essential (primary) hypertension; I48.91 Unspecified atrial fibrillation; M11.20 Other chondrocalcinosis, unspecified site; Z79.01 Long term (current) use of anticoagulants; Z90.710 Acquired absence of both cervix and uterus; Z88.0 Allergy status to penicillin; Z88.2 Allergy status to sulfonamides
CPT/HCPCS: 36415; 80053; 82947; 83735; 85025; 85027; 85610; J1815; 97110; 97112; 97530; 97535; J7030

== ENCOUNTER 2019-02-06 13:30 | Inpatient (IN) | payer MEDICARE, MEDICAID ==
[~2019-02-06] VITALS: Ht 167.6 cm; Wt 78.1 kg
[~2019-02-06 13:30] MED LIST changes: +INSU100I11 SQ; +TRAM50TA PO
[2019-02-06 17:00] VITALS: BP 136/88
--- NOTE | 2019-02-06 18:34 | NUR ---
Swing Bed Admission Patient Handbook for Custodial given to patient. Nursing Problem: Pt readmitted to swing bed following outpatient surgery at [facility]. Pt had a right parathyroidectomy and will resume PT/OT for strengthening in preparation to return home with family. Cognitive/Behavioral: Pt is alert and oriented x3 with some forgetfulness. Pt has been pleasant and cooperative with assessment and cares. Pain: Pt denies any pain at this time. Pt states that when she swallows, she can really feel the swallow but states that it is not painful. Respiratory Status: Lungs CTA. Pt breathing easily on room air. Skin: Pt has a small incision to her anterior neck. Mastisol and steri-strips to incision. No wound care needed per surgeon instructions. Keep clean and dry. Bowel/Bladder Continence: Pt wears a brief for stress incontinence. Pt has not voided for this nurse but per [facility] RN, pt can tell you when she has to void, but does not always make it to the bathroom. ADL Functional Status: Pt is x1 assist for transfers and uses a walker. Pt eats independently with setup help only. Fall(s) prior to admission? Yes Admitted from? [facility]
[2019-02-06] MEDS ORDERED: OXYC1TAB15 PO (19:13)
[2019-02-06] MEDS ORDERED: LACT1CAP21 PO (19:13)
[2019-02-06] MEDS ORDERED: POLYETHYLENE GLYCOL 3350 17 GM PACKET. PO PRN (19:15)
[2019-02-06] MEDS ORDERED: DEXTROSE 50% 25 GM / 50ML DISP.SYRIN. IV PRN (19:15)
[2019-02-06] MEDS: INSULIN GLARGINE 300 UNITS/3 ML INSULN.PEN. SQ SCH (21:54)
[2019-02-06] MEDS: DORZOLAMIDE/TIMOLOL 2%/0.5% OPHTH SOLUTION 10ML BOTTLE. OU SCH (21:56)
[2019-02-06] MEDS: LATANOPROST 0.005% OPHTH SOLUTION 2.5ML BOTTLE. OU SCH (21:56)
[2019-02-06] MEDS: LACTOBACILLUS RHAMNOSUS GG 1 CAPSULE. PO SCH (21:57)
[2019-02-06] MEDS: GABAPENTIN 300 MG CAPSULE. PO SCH (21:57)
[2019-02-06] MEDS: SIMVASTATIN 40 MG TABLET. PO SCH (21:57)
--- NOTE | 2019-02-07 00:31 | NUR ---
Swing Bed Nursing Note Patient received Handbook for Prison. Nursing Problem: Pt readmitted to swing bed following outpatient surgery at [facility]. Pt had a right parathyroidectomy and will resume PT/OT for strengthening in preparation to return home with family. Cognitive/Behavioral: Pt is alert and oriented x 2-3 with some forgetfulness/confusion to location and date. Pt has been pleasant and cooperative with assessment and cares. Pain: Pt denied pain at the beginning of shift. Pt stated that when she swallows, she can really feel the swallow but that it is not painful. At approx. 2230 pt c/o headache, but when asked if she would like either medication or a cold compress pt stated she did not want either. Pt is currently sleeping. Respiratory Status: Lungs CTA. Pt breathing easily on room air. Skin: Pt has a small incision to her midline anterior neck. Mastisol and steri-strips to incision. No wound care needed per surgeon instructions. Keep clean and dry. Bowel/Bladder Continence: Pt wears a brief for stress incontinence. Pt voided at approx. 2030 but was unable to make it to the bathroom. ADL Functional Status: Pt is x1 assist for transfers and uses a walker. Pt eats independently with setup help only and can swallow pills whole.
[2019-02-07] MEDS: LEVOTHYROXINE 50 MCG TABLET PO SCH (06:01)
[2019-02-07 06:05] VITALS: BP 129/85
[2019-02-07 06:41] LABS: ALBUMIN 2.3 g/dL (3.4-5.0); ALBUMIN/GLOBULIN RATIO 0.7 (1.0-1.7); CALCIUM 9.5 mg/dL (8.5-10.1); CREATININE 1.4 mg/dL (0.6-1.0); GFR 35.5; POTASSIUM 5.1 mmol/L (3.5-5.1); TOTAL BILIRUBIN 0.5 mg/dL (0.2-1.0); TOTAL PROTEIN 5.8 g/dL (6.4-8.2)
[2019-02-07] MEDS: INSULIN LISPRO 300 UNITS/3 ML INSULN.PEN. SQ SCH ×3 (07:30→16:56)
--- NOTE | 2019-02-07 08:00 | NUR ---
Pharmacy Warfarin Dosing Note S:Pharmacy consulted to assist with anticoagulation therapy started 02/07/19 with target INR: 2 -3 Patient is being restarted on warfarin after having a parathyroidectomy at [facility] this week O:RONNA MAYES is a 88 year old F with Atrial Fibrillation LABS: (HCG/HCT 02/06 AT [facility]) Last INR: 1.6 Last HGB: 11.7 Last HCT: 36.2 Last PLT: 299 Last dose of given on 02/03/19 at 1600 Previous Regimen: 3MG DAILY WITH ONLY 1.5MG ON SUN, SUN Vitamin K given: Drug Interaction Changes: Ongoing Drug Interactions: A:INR Below desired Range. Target Range for this patient is: 2 -3 P: Warfarin dose: 3 mg Today at 1600 Bridge Therapy: None Next INR due 02/08 Pharmacy anticoagulation service will continue to follow. LAKISHA GAMBLE, 02/07/19 0800
[2019-02-07] MEDS: ALLOPURINOL 100 MG TABLET. PO SCH (08:06)
[2019-02-07] MEDS: METOPROLOL SUCC 24HR ER 50 MG TAB.ER.24H. PO SCH (08:06)
[2019-02-07] MEDS: LACTOBACILLUS RHAMNOSUS GG 1 CAPSULE. PO SCH ×2 (08:06→20:29)
[2019-02-07] MEDS: LINAGLIPTIN 5 MG TABLET PO SCH (08:06)
[2019-02-07] MEDS: GABAPENTIN 300 MG CAPSULE. PO SCH ×3 (08:06→20:29)
[2019-02-07] MEDS: DORZOLAMIDE/TIMOLOL 2%/0.5% OPHTH SOLUTION 10ML BOTTLE. OU SCH ×2 (08:20→20:32)
--- NOTE | 2019-02-07 10:11 | NUR ---
called for follow up appointment with dr. more in two weeks. made appointment for february 18 at 9:15am with dr. more at the [facility]. informed pt of this and called pt's son, demi, to inform him of this. both verbalized understanding.
--- NOTE | 2019-02-07 13:44 | NUR ---
Swing Bed Nursing Note Nursing Problem: Pt admitted to swing bed following outpatient surgery at [facility]. Pt had a right parathyroidectomy and will resume PT/OT for strengthening in preparation to return home with family. Cognitive/Behavioral: Pt is AO4 with some forgetfulness and is hard of hearing. Pt has been pleasant and cooperative with assessment and cares. Pain: Denies. Respiratory Status: Lungs cta, on room air. Skin: Pt has a small incision to her midline anterior neck. Mastisol and steri-strips to incision. Keep clean and dry. Bowel/Bladder Continence: Pt wears a brief for stress incontinence, but is continent of bowel. LBM 02/04, pt refusing stool softener at this time. ADL Functional Status: Pt is x1 assist for transfers and uses a walker. Pt eats independently with setup help only and can swallow pills whole.
[2019-02-07] MEDS ORDERED: WARFARIN 3 MG TABLET. PO ONE (16:00)
[2019-02-07 18:15] VITALS: BP 123/78
[2019-02-07] MEDS: SIMVASTATIN 40 MG TABLET. PO SCH (20:29)
[2019-02-07] MEDS: LATANOPROST 0.005% OPHTH SOLUTION 2.5ML BOTTLE. OU SCH (20:30)
[2019-02-07] MEDS: INSULIN GLARGINE 300 UNITS/3 ML INSULN.PEN. SQ SCH (20:43)
--- NOTE | 2019-02-08 03:16 | NUR ---
Swing Bed Nursing Note Nursing Problem: Pt admitted to swing bed following outpatient surgery at [facility]. Pt had a right parathyroidectomy and will resume PT/OT for strengthening in preparation to return home with family. Cognitive/Behavioral: Pt is A/Ox4 with some forgetfulness and is hard of hearing. Pt has been pleasant and cooperative with assessment and cares. Pain: Denies pain at this time. States that she is more aware of the feeling when she swallows but it is not painful. Respiratory Status: Lungs CTA, on room air, mild SOA with exertion.. Skin: Pt has a small incision to her midline anterior neck. Mastisol and steri-strips to incision. Keep clean and dry. Bowel/Bladder Continence: Pt wears a brief for stress incontinence but is continent of bowel. LBM 02/04, pt refusing stool softener at this time. ADL Functional Status: Pt is x1 assist for transfers and uses a walker. Pt can swallow pills whole.
[2019-02-08] MEDS: LEVOTHYROXINE 50 MCG TABLET PO SCH (05:40)
[2019-02-08 08:00] VITALS: BP 122/84
[2019-02-08] MEDS: INSULIN LISPRO 300 UNITS/3 ML INSULN.PEN. SQ SCH ×3 (08:00→18:20)
[2019-02-08] MEDS: LACTOBACILLUS RHAMNOSUS GG 1 CAPSULE. PO SCH ×2 (08:42→20:40)
[2019-02-08] MEDS: GABAPENTIN 300 MG CAPSULE. PO SCH ×3 (08:42→20:40)
[2019-02-08] MEDS: LINAGLIPTIN 5 MG TABLET PO SCH (08:42)
[2019-02-08] MEDS: ALLOPURINOL 100 MG TABLET. PO SCH (08:42)
[2019-02-08] MEDS: METOPROLOL SUCC 24HR ER 50 MG TAB.ER.24H. PO SCH (08:42)
[2019-02-08] MEDS: DORZOLAMIDE/TIMOLOL 2%/0.5% OPHTH SOLUTION 10ML BOTTLE. OU SCH ×2 (08:45→20:40)
--- NOTE | 2019-02-08 09:57 | NUR ---
Pharmacy Warfarin Dosing Note S:Pharmacy consulted to assist with anticoagulation therapy started 02/07/19 with target INR: 2 -3 O:RONNA MAYES is a 88 year old F with Atrial Fibrillation LABS: Last INR: 1.4 Last HGB: 11.7 Last HCT: 36.2 Last PLT: 299 Last dose of 3 mg given on 02/07/19 at 1600 Previous Regimen: 3MG DAILY WITH ONLY 1.5MG ON SUN, TU Vitamin K given: Drug Interaction Changes: Ongoing Drug Interactions: A:INR Below desired Range. Target Range for this patient is: 2 -3 P: Warfarin dose: 5 mg Today at 1600 Bridge Therapy: None Next INR due 02/10/16 Pharmacy anticoagulation service will continue to follow. BRANDIE HUTSON, 02/08/19 0957
[2019-02-08 14:26] LABS: HEMATOCRIT 38.5 % (36.0-47.0); HEMOGLOBIN 12.5 g/dL (12.0-15.5); RED BLOOD COUNT 3.78 x10^6/uL (3.50-5.40); RED CELL DISTRIBUTION WIDTH 15.1 % (11.5-14.5)
[2019-02-08] MEDS ORDERED: FUROSEMIDE 40 MG TABLET PO ONE (14:30)
[2019-02-08 14:34] LABS: ALBUMIN 2.3 g/dL (3.4-5.0); ALBUMIN/GLOBULIN RATIO 0.7 (1.0-1.7); CREATININE 1.5 mg/dL (0.6-1.0); GFR 32.8; POTASSIUM 4.5 mmol/L (3.5-5.1); TOTAL BILIRUBIN 0.5 mg/dL (0.2-1.0); TOTAL PROTEIN 5.7 g/dL (6.4-8.2)
--- NOTE | 2019-02-08 14:45 | NUR ---
Swing Bed Nursing Note Nursing Problem: Pt admitted to swing bed following outpatient surgery at [facility]. Pt had a right parathyroidectomy and will resume PT/OT for strengthening in preparation to return home with family. Cognitive/Behavioral: Pt is AO4 with some forgetfulness and is hard of hearing. Pt has been pleasant and cooperative with assessment and cares. Pain: Denies. Respiratory Status: Lungs cta, on room air. Skin: Pt has a small incision to her midline anterior neck. Mastisol and steri-strips to incision. Keep clean and dry. Bowel/Bladder Continence: Pt wears a brief for stress incontinence, but is continent of bowel. LBM 02/04, pt refusing stool softener at this time. ADL Functional Status: Pt is x1 assist for transfers and uses a walker. Pt eats independently with setup help only and can swallow pills whole.
--- NOTE | 2019-02-08 14:51 | PN ---
DATE: 02/08/2019 SUBJECTIVE: The patient is sitting in her chair comfortably in no apparent distress. She denied any chest pain or shortness of breath. She did complain of swelling of her legs. The patient was at [facility] where she underwent parathyroidectomy and she did actually extremely well after that. She is back here to continue the process of rehabilitation. She is definitely much improved. She has been up and about walking with physical therapist. PHYSICAL EXAMINATION: GENERAL: When I examined her this afternoon, she looked pale, but no jaundice, cyanosis or thyromegaly. No jugular venous distention. No limb edema. VITAL SIGNS: Her heart rate was 89, blood pressure was 122/84, temperature was 98.5, respiratory rate was 20, and oxygen saturation was 99% on room air. HEAD, EYES, EARS, NOSE AND THROAT: Showed normocephalic, atraumatic. NECK: Supple, with surgical incision covered with Steri-Strips. HEART: Showed normal first and second heart sounds. No gallop, rub or murmur. CHEST: Shows central trachea, equal bilateral expansion, air entry, vesicular sounds. I could not really appreciate any crepitation or rhonchi. ABDOMEN: Slightly distended, soft, nontender. NEUROLOGIC: She was awake, alert, responding appropriately. All cranial nerves are intact. She moves extremities without difficulty. EXTREMITIES: Her lower extremities showed no clubbing, cyanosis, but she has mild bilateral lower limb edema. Her intake was 1515, output was 150. LABORATORY DATA: Her prothrombin time as of this morning was 13.6, INR 1.4. Her blood sugars seemed to be reasonably controlled. Her lab work this morning still pending at the time of this dictation. ASSESSMENT: 1. Hypercalcemia with serum calcium corrected for serum albumin, status post parathyroidectomy. 2. Severe right knee joint osteoarthritis as well as chondrocalcinosis; responded synovial fluid removal and injection of steroids. 3. She has multiple other medical problems including: A. Type 2 diabetes mellitus, which is slightly better controlled. B. Hypertension. C. Hyperlipidemia. D. Atrial fibrillation, rate controlled, on Coumadin, although her INR is subtherapeutic. E. Glaucoma. PLAN: I will start her on Lasix 20 mg starting today and daily thereafter. Continue with physical and occupational therapy. CASEY MCKENZIE MD DR: Mckenzie JOB#: [id number] / [id number]
[2019-02-08] MEDS ORDERED: WARFARIN 5 MG TABLET. PO ONE (16:00)
[2019-02-08 18:41] VITALS: BP 122/80
[2019-02-08] MEDS: SIMVASTATIN 40 MG TABLET. PO SCH (20:39)
[2019-02-08] MEDS: LATANOPROST 0.005% OPHTH SOLUTION 2.5ML BOTTLE. OU SCH (20:40)
[2019-02-08] MEDS: INSULIN GLARGINE 300 UNITS/3 ML INSULN.PEN. SQ SCH (20:45)
--- NOTE | 2019-02-09 03:11 | NUR ---
Swing Bed Nursing Note Nursing Problem: Pt admitted to swing bed following outpatient surgery at [facility]. Pt had a right parathyroidectomy and will resume PT/OT for strengthening in preparation to return home with family. Cognitive/Behavioral: Pt is A/Ox4 with some forgetfulness and is hard of hearing. Pt has been pleasant and cooperative with assessment and cares. Pain: Denies pain at this time. Respiratory Status: Lungs CTA, on room air, mild SOA with exertion.. Skin: Pt has a small incision to her midline anterior neck. Mastisol and steri-strips to incision. Keep clean and dry. Dressing changed day shift 02/08/19. Bowel/Bladder Continence: Pt wears a brief for stress incontinence but is continent of bowel. LBM 02/04, pt refusing stool softener at this time. ADL Functional Status: Pt is x1 assist for transfers and uses a walker. Pt can swallow pills whole.
[2019-02-09] MEDS: LEVOTHYROXINE 50 MCG TABLET PO SCH (06:20)
[2019-02-09 07:01] VITALS: BP 112/76
[2019-02-09] MEDS: INSULIN LISPRO 300 UNITS/3 ML INSULN.PEN. SQ SCH ×3 (08:00→17:00)
[2019-02-09] MEDS: FUROSEMIDE 20 MG TABLET PO SCH (09:46)
[2019-02-09] MEDS: LACTOBACILLUS RHAMNOSUS GG 1 CAPSULE. PO SCH ×2 (09:46→21:47)
[2019-02-09] MEDS: METOPROLOL SUCC 24HR ER 50 MG TAB.ER.24H. PO SCH (09:46)
[2019-02-09] MEDS: LINAGLIPTIN 5 MG TABLET PO SCH (09:46)
[2019-02-09] MEDS: GABAPENTIN 300 MG CAPSULE. PO SCH ×3 (09:46→21:47)
[2019-02-09] MEDS: DORZOLAMIDE/TIMOLOL 2%/0.5% OPHTH SOLUTION 10ML BOTTLE. OU SCH ×2 (09:47→21:47)
--- NOTE | 2019-02-09 09:54 | NUR ---
Pharmacy Warfarin Dosing Note S:Pharmacy consulted to assist with anticoagulation therapy started 02/07/19 with target INR: 2 -3 O:RONNA MAYES is a 88 year old F with Atrial Fibrillation LABS: Last INR: 1.5 Last HGB: 12.5 Last HCT: 38.5 Last PLT: 283 Last dose of 5 mg given on 02/08/19 at 1600 Previous Regimen: 3MG DAILY WITH ONLY 1.5MG ON SUN, TU Vitamin K given: Drug Interaction Changes: Ongoing Drug Interactions: A:INR Below desired Range. Target Range for this patient is: 2 -3 P: Warfarin dose: 5 mg Today at 1600 Bridge Therapy: None Next INR due 02/10/19 Pharmacy anticoagulation service will continue to follow. BRANDIE HUTSON, 02/09/19 0954
[2019-02-09] MEDS: ALLOPURINOL 100 MG TABLET. PO SCH (09:55)
[2019-02-09] MEDS ORDERED: WARFARIN 5 MG TABLET. PO ONE (16:00)
[2019-02-09 18:21] VITALS: BP 135/79
[2019-02-09] MEDS: SIMVASTATIN 40 MG TABLET. PO SCH (21:47)
[2019-02-09] MEDS: LATANOPROST 0.005% OPHTH SOLUTION 2.5ML BOTTLE. OU SCH (21:47)
[2019-02-09] MEDS: INSULIN GLARGINE 300 UNITS/3 ML INSULN.PEN. SQ SCH (21:54)
--- NOTE | 2019-02-10 03:16 | NUR ---
Swing Bed Nursing Note Nursing Problem: Pt admitted to swing bed following outpatient surgery at [facility]. Pt had a right parathyroidectomy and will resume PT/OT for strengthening in preparation to return home with family. Cognitive/Behavioral: Pt is A/Ox4 with some forgetfulness and is hard of hearing. Pt has been pleasant and cooperative with assessment and cares. Pain: Denies pain at this time. Respiratory Status: Lungs CTA, on room air, mild SOA with exertion.. Skin: Pt has a small incision to her midline anterior neck. Mastisol and steri-strips to incision. Keep clean and dry. Dressing changed day shift 02/09/19. Bowel/Bladder Continence: Pt wears a brief for stress incontinence but is continent of bowel. LBM 02/09. ADL Functional Status: Pt is x1 assist for transfers and uses a walker. Pt can swallow pills whole.
[2019-02-10 06:22] VITALS: BP 109/73
[2019-02-10] MEDS: LEVOTHYROXINE 50 MCG TABLET PO SCH (06:23)
[2019-02-10] MEDS: INSULIN LISPRO 300 UNITS/3 ML INSULN.PEN. SQ SCH ×3 (08:00→17:25)
[2019-02-10] MEDS: LINAGLIPTIN 5 MG TABLET PO SCH (09:06)
[2019-02-10] MEDS: GABAPENTIN 300 MG CAPSULE. PO SCH ×3 (09:06→21:00)
[2019-02-10] MEDS: ALLOPURINOL 100 MG TABLET. PO SCH (09:06)
[2019-02-10] MEDS: FUROSEMIDE 20 MG TABLET PO SCH (09:06)
[2019-02-10] MEDS: LACTOBACILLUS RHAMNOSUS GG 1 CAPSULE. PO SCH ×2 (09:06→21:00)
[2019-02-10] MEDS: DORZOLAMIDE/TIMOLOL 2%/0.5% OPHTH SOLUTION 10ML BOTTLE. OU SCH ×2 (09:07→21:00)
[2019-02-10] MEDS: METOPROLOL SUCC 24HR ER 50 MG TAB.ER.24H. PO SCH (09:07)
--- NOTE | 2019-02-10 09:30 | NUR ---
Pharmacy Warfarin Dosing Note S:Pharmacy consulted to assist with anticoagulation therapy started 02/07/19 with target INR: 2 -3 O:RONNA MAYES is a 88 year old F with Atrial Fibrillation LABS: Last INR: 2.2 Last HGB: 12.5 Last HCT: 38.5 Last PLT: 283 Last dose of 5 mg given on 02/09/19 at 1600 Previous Regimen: 3MG DAILY WITH ONLY 1.5MG ON SUN, TU Vitamin K given: Drug Interaction Changes: Ongoing Drug Interactions: A:INR Within desired Range. Target Range for this patient is: 2 -3 P: Warfarin dose: 3 mg Today at 1600 Bridge Therapy: None Next INR due 02/11/19 Pharmacy anticoagulation service will continue to follow. BRANDIE HUTSON, 02/10/19 0928
[2019-02-10] MEDS ORDERED: WARFARIN 3 MG TABLET. PO ONE (16:00)
--- NOTE | 2019-02-10 16:13 | NUR ---
Swing Bed Nursing Note Nursing Problem: Pt admitted to swing bed following outpatient surgery at [facility]. Pt had a right parathyroidectomy and will resume PT/OT for strengthening in preparation to return home with family. Cognitive/Behavioral: Pt is A/Ox4 with some forgetfulness and is hard of hearing. Pt has been pleasant and cooperative with assessment and cares. Pain: Denies pain at this time. Respiratory Status: Lungs CTA, on room air, mild SOA with exertion.. Skin: Pt has a small incision to her midline anterior neck. Mastisol and steri-strips to incision. Keep clean and dry. Bowel/Bladder Continence: Pt wears a brief for stress incontinence but is continent of bowel. LBM 02/10. ADL Functional Status: Pt is x1 assist for transfers and uses a walker. Pt can swallow pills whole.
[2019-02-10 18:07] LABS: BACTERIA,URINE 0 /HPF (0-FEW); BILIRUBIN,URINE NEG (NEG); CLARITY,URINE CLEAR; COLOR,URINE STRAW; GLUCOSE,URINE 250 mg/dL (NEG); NITRITE,URINE NEG (NEG); UROBILINOGEN,URINE 1 mg/dL (0.2 mg/dL); YEAST,URINE PRESENT /HPF
[2019-02-10 18:09] LABS: SQUAMOUS EPITHELIAL CELL,UR MOD /LPF
[2019-02-10] MEDS: LATANOPROST 0.005% OPHTH SOLUTION 2.5ML BOTTLE. OU SCH (21:00)
[2019-02-10] MEDS: SIMVASTATIN 40 MG TABLET. PO SCH (21:00)
[2019-02-10] MEDS: INSULIN GLARGINE 300 UNITS/3 ML INSULN.PEN. SQ SCH (21:10)
[2019-02-10 21:15] VITALS: BP 123/53
--- NOTE | 2019-02-11 00:50 | NUR ---
Swing Bed Nursing Note Nursing Problem: Pt admitted to swing bed following outpatient surgery at [facility]. Pt had a right parathyroidectomy and will resume PT/OT for strengthening in preparation to return home with family. Cognitive/Behavioral: Pt is A&Ox4 with some forgetfulness and is hard of hearing. Pt has been pleasant and cooperative with assessment and cares this shift. Pt awake in bed watching TV with call light in hand. Pain: Denies pain at this time. Respiratory Status: Lungs CTA, Pt is on room air and denies cough. C/O mild SOA with exertion around room or to bathroom. Skin: Pt has a small incision to her midline anterior neck. Mastisol and steri-strips to incision. Keep clean and dry. Skin is thin and friable but intact. Bowel/Bladder Continence: Pt wears a brief for stress incontinence but is continent of bowel. LBM 02/10. ADL Functional Status: Pt is x1 assist for transfers with walker. Pt can swallow pills whole. Pt needs x1 assist with dressing but eats independently.
--- NOTE | 2019-02-11 02:17 | PN ---
DATE: 02/10/2019 SUBJECTIVE: The patient is sitting in her chair, eating her lunch comfortably, in no apparent distress. On questioning her, she continued to have swelling of both of her legs for which we started her already on Lasix. Her daughter is concerned about incontinence, which is new; however, she generally looks much better. She is more awake, alert, has been up and about, walked with physical therapy. PHYSICAL EXAMINATION: GENERAL: When examining her, she looked slightly pale, not jaundiced, cyanosis, or thyromegaly. No jugular venous distension. She has bilateral lower limb edema. VITAL SIGNS: Her heart rate was 88, blood pressure 109/73, temperature was 98, respiratory rate was 18 and oxygen saturation was 99%. HEAD, EYES, EARS, NOSE AND THROAT: Normocephalic, atraumatic. NECK: Supple. HEART: Showed normal first and second heart sounds. No gallop, rub or murmur. CHEST: Showed central trachea, equal bilateral expansion, air entry. No crepitation or rhonchi. ABDOMEN: Distended, soft, nontender. NEUROLOGIC: She is awake, alert, responding appropriately. All cranial nerves intact. She moves extremities without difficulty. She ambulates with a walker. EXTREMITIES: Her lower extremities showed no clubbing, cyanosis, but has bilateral 2+ lower limb edema. Her intake was 2100, no output was recorded. LABORATORY DATA: Her most recent white cell count was 9000, hemoglobin 12.5, hematocrit 38, MCV 102 and platelet count 283,000. Her blood sugar seems to be reasonably controlled. Her most recent lab work showed a serum sodium of 142, potassium 4.5, chloride 109, bicarbonate 27, anion gap of 6, BUN 25, creatinine 1.5, estimated GFR was 53 mL per minute. Her glucose was 64, calcium was 9. Total bilirubin, AST, ALT, alkaline phosphatase were slightly elevated. Her total protein was 5.7, albumin was 2.3. Her prothrombin time this morning was 20.9, INR of 2.2, which is within therapeutic range. ASSESSMENT: 1. Hypercalcemia that has resolved and she underwent parathyroidectomy recently. 2. Severe right knee joint osteoarthritis as well as chondrocalcinosis, status post synovial fluid aspiration and injection of steroids. 3. She has multiple other medical problems including; A. Type 2 diabetes mellitus, which is much better controlled. B. Hypertension. C. Hyperlipidemia. D. Atrial fibrillation, rate controlled, well anticoagulated. E. Glaucoma. PLAN: I did start her on Lasix. I added potassium 10 mEq once a day. We will follow her closely to make sure she does not have any hypocalcemia. CASEY MCKENZIE MD DR: JATIN/niurka JOB#: [id number] / [id number]
[2019-02-11] MEDS: LEVOTHYROXINE 50 MCG TABLET PO SCH (05:03)
[2019-02-11 05:57] VITALS: BP 121/72
[2019-02-11] MEDS: INSULIN LISPRO 300 UNITS/3 ML INSULN.PEN. SQ SCH ×3 (08:00→17:03)
[2019-02-11] MEDS: GABAPENTIN 300 MG CAPSULE. PO SCH ×3 (08:42→21:00)
[2019-02-11] MEDS: LINAGLIPTIN 5 MG TABLET PO SCH (08:42)
[2019-02-11] MEDS: POTASSIUM CHLORIDE 10 MEQ TABLET.ER. PO SCH (08:42)
[2019-02-11] MEDS: FUROSEMIDE 20 MG TABLET PO SCH (08:42)
[2019-02-11] MEDS: LACTOBACILLUS RHAMNOSUS GG 1 CAPSULE. PO SCH ×2 (08:42→21:00)
[2019-02-11] MEDS: METOPROLOL SUCC 24HR ER 50 MG TAB.ER.24H. PO SCH (08:43)
[2019-02-11] MEDS: ALLOPURINOL 100 MG TABLET. PO SCH (08:43)
[2019-02-11] MEDS: oxyCODONE/APAP 5/325 1 TAB TABLET PO PRN ×2 (08:43→14:11)
[2019-02-11] MEDS: DORZOLAMIDE/TIMOLOL 2%/0.5% OPHTH SOLUTION 10ML BOTTLE. OU SCH ×2 (08:46→21:00)
[2019-02-11 09:07] VITALS: BP 140/79
--- NOTE | 2019-02-11 12:01 | NUR ---
Pharmacy Warfarin Dosing Note S:Pharmacy consulted to assist with anticoagulation therapy started 02/07/19 with target INR: 2 -3 O:RONNA MAYES is a 88 year old F with Atrial Fibrillation LABS: Last INR: 2.6 Last HGB: 12.5 Last HCT: 38.5 Last PLT: 283 Last dose of 3 mg given on 02/10/19 at 1600 Previous Regimen: 3MG DAILY WITH ONLY 1.5MG ON SUN, TU Vitamin K given: Drug Interaction Changes: Ongoing Drug Interactions: A:INR Within desired Range. Target Range for this patient is: 2 -3 P: Warfarin dose: 3 mg Today at 1600 Bridge Therapy: None Next INR due 30 @ 0600 Pharmacy anticoagulation service will continue to follow. ASHLEY BROWN RP, 02/11/19 1203
--- NOTE | 2019-02-11 12:48 | RAD ---
Left knee, 3 views, 02/11/2019: HISTORY: Severe knee pain and swelling The bony structures are demineralized. There is moderate spurring at the knee joint and at the patellofemoral articulation. Chondrocalcinosis is evident. No fracture or dislocation is identified. No destructive bony lesion is seen. There is moderate diffuse subcutaneous edema. Arterial calcifications are present posteriorly. IMPRESSION: 1. Demineralization. 2. Moderate degenerative change at the left knee with chondrocalcinosis. 3. No acute bony abnormality is detected. Electronically signed by: John Magallon MD (02/11/2019 12:46 PM) [facility]
[2019-02-11] MEDS ORDERED: WARFARIN 3 MG TABLET. PO ONE (16:00)
--- NOTE | 2019-02-11 17:20 | NUR ---
Swing Bed Note : Nursing Problem: Pt admitted to swing bed following outpatient surgery at [facility]. Pt had a right parathyroidectomy and will resume PT/OT for strengthening in preparation to return home with family. Cognitive/Behavioral: Pt is A/Ox4 with some forgetfulness and is hard of hearing. Pt has been pleasant and cooperative with assessment and cares. Speech is clear, able to make wants and needs known, able to intermittantly verbalize understanding of others. Dementia diagnosis. Pain: Complains of pain on a 8 out of 10 scale in left knee with movement. Respiratory Status: Lungs CTA, on room air, mild SOA with exertion.. Skin: Pt has a incision to her midline anterior neck from post parathyroidectomy. Mastisol and steri-strips to incision. Keep clean and dry. Dressing is in tact at this time. Bowel/Bladder Continence: Pt wears a brief for stress incontinence but is continent of bowel. LBM 02/11 Abdomen is soft and non tender, obese, active bowel sounds in all 4 quadrants. ADL Functional Status: Pt is x1 assist for transfers and uses a walker and gait belt. Pt can swallow pills whole.
[2019-02-11 19:53] VITALS: BP_SYST 131; BP_SYST 95; BP_DIAS 55; BP_DIAS 56
[2019-02-11] MEDS: LATANOPROST 0.005% OPHTH SOLUTION 2.5ML BOTTLE. OU SCH (21:00)
[2019-02-11] MEDS: SIMVASTATIN 40 MG TABLET. PO SCH (21:00)
[2019-02-11] MEDS: INSULIN GLARGINE 300 UNITS/3 ML INSULN.PEN. SQ SCH (21:07)
--- NOTE | 2019-02-11 22:43 | NUR ---
Swing Bed Nursing Note Nursing Problem: Pt admitted to swing bed following outpatient surgery at [facility]. Pt had a right parathyroidectomy and will resume PT/OT for strengthening in preparation to return home with family. Cognitive/Behavioral: Pt is A&Ox4 with some forgetfulness and is hard of hearing. Pt has been pleasant and cooperative with assessment and cares this shift. Pt awake in bed watching TV with call light nearby. Volume up blood bank laboratory professional light and PT still having difficulty hearing the TV. Pain: Denies pain at this time, however appears to have discomfort on swallowing during assessment. Respiratory Status: Lungs CTA, RA, denies cough. Skin: Pt has a small incision to her midline anterior neck. Mastisol and steri-strips to incision. Keep clean and dry. Skin is thin, friable, intact. Bowel/Bladder Continence: Pt wears a brief for stress incontinence but is continent of bowel. LBM 02/10. ADL Functional Status: Pt is x1 assist for transfers with walker. Pt can swallow pills whole. Pt needs x1 assist with dressing but eats independently.
[2019-02-12] MEDS: LEVOTHYROXINE 50 MCG TABLET PO SCH (05:59)
[2019-02-12 06:21] VITALS: BP 110/61
[2019-02-12] MEDS: INSULIN LISPRO 300 UNITS/3 ML INSULN.PEN. SQ SCH ×3 (08:00→17:16)
[2019-02-12] MEDS: LACTOBACILLUS RHAMNOSUS GG 1 CAPSULE. PO SCH ×2 (08:55→21:58)
[2019-02-12] MEDS: GABAPENTIN 300 MG CAPSULE. PO SCH ×3 (08:55→21:38)
[2019-02-12] MEDS: FUROSEMIDE 20 MG TABLET PO SCH (08:55)
[2019-02-12] MEDS: ALLOPURINOL 100 MG TABLET. PO SCH (08:55)
[2019-02-12] MEDS: POTASSIUM CHLORIDE 10 MEQ TABLET.ER. PO SCH (08:55)
[2019-02-12] MEDS: LINAGLIPTIN 5 MG TABLET PO SCH (08:56)
[2019-02-12] MEDS: METOPROLOL SUCC 24HR ER 50 MG TAB.ER.24H. PO SCH (08:56)
[2019-02-12] MEDS: DORZOLAMIDE/TIMOLOL 2%/0.5% OPHTH SOLUTION 10ML BOTTLE. OU SCH ×2 (08:57→21:39)
[2019-02-12] MEDS: oxyCODONE/APAP 5/325 1 TAB TABLET PO PRN ×3 (08:58→21:38)
--- NOTE | 2019-02-12 10:31 | NUR ---
Pharmacy Warfarin Dosing Note S:Pharmacy consulted to assist with anticoagulation therapy started 02/07/19 with target INR: 2 -3 O:RONNA MAYES is a 88 year old F with Atrial Fibrillation LABS: Last INR: 3.1 Last HGB: 12.5 Last HCT: 38.5 Last PLT: 283 Last dose of 3 mg given on 02/11/19 at 1600 Previous Regimen: 3MG DAILY WITH ONLY 1.5MG ON SUN, SUN Vitamin K given: Drug Interaction Changes: Same Interacting Drug Ongoing Drug Interactions: ALLOPURINOL A:INR Above desired Range. Target Range for this patient is: 2 -3 P: Warfarin dose: Hold Today at 1600 Bridge Therapy: None Next INR due 02/13/19 Pharmacy anticoagulation service will continue to follow. LAKISHA GAMBLE, 02/12/19 1031
--- NOTE | 2019-02-12 18:16 | NUR ---
Swing Bed Note : Nursing Problem: Pt admitted to swing bed following outpatient surgery at [facility]. Pt had a right parathyroidectomy and will resume PT/OT for strengthening in preparation to return home with family. Cognitive/Behavioral: Pt is A/Ox4 with some forgetfulness and is hard of hearing. Pt has been pleasant and cooperative with assessment and cares. Speech is clear, able to make wants and needs known, able to intermittently verbalize understanding of others. Dementia diagnosis. Pain: Complains of pain on a 8 out of 10 scale in left knee with movement, PRN Oxycodone administered x 2 this shift with slightly effective results. Respiratory Status: Lungs CTA, on room air, mild SOA with exertion, hypoxemic at beginning of shift with 02 in the low 80's on RA, applied 02 via NC at 3 L for 5 minutes and 02 improved to 100%. No signs and symptoms of hypoxemia for remainder of shift on RA. Skin: Pt has a incision to her midline anterior neck from post parathyroidectomy. Mastisol and steri-strips to incision. Keep clean and dry. Dressing is in tact at this time. Bowel/Bladder Continence: Pt wears a brief for stress incontinence but is continent of bowel. LBM 02/12 Abdomen is soft and non tender, obese, active bowel sounds in all 4 quadrants. ADL Functional Status: Pt is x1 assist for transfers and uses a walker and gait belt. Pt can swallow pills whole.
[2019-02-12 18:25] VITALS: BP 95/54
[2019-02-12 20:00] VITALS: BP 95/58
[2019-02-12] MEDS: SIMVASTATIN 40 MG TABLET. PO SCH (21:38)
[2019-02-12] MEDS: LATANOPROST 0.005% OPHTH SOLUTION 2.5ML BOTTLE. OU SCH (21:39)
[2019-02-12] MEDS: INSULIN GLARGINE 300 UNITS/3 ML INSULN.PEN. SQ SCH (21:47)
[2019-02-12] MEDS: DICLOFENAC SODIUM 1% TOPICAL GEL 100GM TUBE. TP SCH (21:48)
--- NOTE | 2019-02-13 04:43 | NUR ---
PT REMAIN ALERT AND ORIENT TIMES THREE,. FAMILY MEMBER WERE AT THE BEDSIDE AT THE BEGINNING OF THE SHIFT. SAT IN CHAIR UNTIL AFTER SHE RECEIVED HER MEDICATIONS FOR THE NIGHT. UP WITH ASSIST OF ONE TO THE BR. STRESS INCONTINENCE, DOES WEAR BRIEFS LINED WITH PAD. NO BM THIS SHIFT. SLEPT ALL NIGHT ONCE IN BED. VSS, AFEBRILE. SLOW PROGRESS TOWARDS DC GOALS. WILL CONTINUE TO MONITOR.
[2019-02-13] MEDS: LEVOTHYROXINE 50 MCG TABLET PO SCH (05:49)
[2019-02-13] MEDS: METOPROLOL SUCC 24HR ER 50 MG TAB.ER.24H. PO SCH (07:06)
[2019-02-13] MEDS: DORZOLAMIDE/TIMOLOL 2%/0.5% OPHTH SOLUTION 10ML BOTTLE. OU SCH ×2 (07:31→19:47)
[2019-02-13] MEDS: POTASSIUM CHLORIDE 10 MEQ TABLET.ER. PO SCH (07:31)
[2019-02-13] MEDS: LACTOBACILLUS RHAMNOSUS GG 1 CAPSULE. PO SCH ×2 (07:31→19:47)
[2019-02-13] MEDS: GABAPENTIN 300 MG CAPSULE. PO SCH ×3 (07:31→19:47)
[2019-02-13] MEDS: LINAGLIPTIN 5 MG TABLET PO SCH (07:32)
[2019-02-13] MEDS: oxyCODONE/APAP 5/325 1 TAB TABLET PO PRN (07:32)
[2019-02-13] MEDS: DICLOFENAC SODIUM 1% TOPICAL GEL 100GM TUBE. TP SCH ×2 (07:32→19:48)
[2019-02-13] MEDS: ALLOPURINOL 100 MG TABLET. PO SCH (07:32)
[2019-02-13] MEDS: INSULIN LISPRO 300 UNITS/3 ML INSULN.PEN. SQ SCH ×3 (07:32→17:00)
[2019-02-13 07:59] VITALS: BP 105/73
[2019-02-13] MEDS: FUROSEMIDE 20 MG TABLET PO SCH (09:00)
--- NOTE | 2019-02-13 09:53 | NUR ---
Pharmacy Warfarin Dosing Note S:Pharmacy consulted to assist with anticoagulation therapy started 02/07/19 with target INR: 2 -3 O:RONNA MAYES is a 88 year old F with Atrial Fibrillation LABS: Last INR: 3.2 Last HGB: 12.5 Last HCT: 38.5 Last PLT: 283 Last dose of Hold given on 02/12/19 at 1600 Previous Regimen: 3MG DAILY WITH ONLY 1.5MG ON SUN, SUN Vitamin K given: Drug Interaction Changes: Same Interacting Drug Ongoing Drug Interactions: ALLOPURINOL A:INR Above desired Range. Target Range for this patient is: 2 -3 P: Warfarin dose: Hold Today at 1600 Bridge Therapy: None Next INR due 02/14/19 - also ordered H&H since last one was 02/08 Pharmacy anticoagulation service will continue to follow. LAKISHA GAMBLE, 02/13/19 0951
[2019-02-13 11:16] LABS: HEMATOCRIT 35.5 % (36.0-47.0); HEMOGLOBIN 11.6 g/dL (12.0-15.5); RED BLOOD COUNT 3.5 x10^6/uL (3.50-5.40); RED CELL DISTRIBUTION WIDTH 14.5 % (11.5-14.5)
[2019-02-13 11:29] LABS: ALBUMIN/GLOBULIN RATIO 0.5 (1.0-1.7); CALCIUM 8.2 mg/dL (8.5-10.1); CREATININE 1.9 mg/dL (0.6-1.0); GFR 24.9; POTASSIUM 4.4 mmol/L (3.5-5.1); TOTAL BILIRUBIN 0.5 mg/dL (0.2-1.0); TOTAL PROTEIN 6.3 g/dL (6.4-8.2)
[2019-02-13] MEDS ORDERED: LIDOCAINE 1% 50 ML VIAL. IV ONE (11:30)
[2019-02-13] MEDS ORDERED: methylPREDNISolone SOD SUCC PF 40 MG/ML VIAL. IV ONE (11:30)
--- NOTE | 2019-02-13 12:44 | RAD ---
Portable chest, 02/13/2019: HISTORY: Shortness of breath Comparison is made to a study from 01/03/2019. The heart is mildly enlarged. There is tortuosity of the thoracic aorta. The pulmonary vascularity is normal. No pulmonary infiltrate is seen. No significant pleural fluid is evident. IMPRESSION: 1. Mild cardiomegaly and aortic atherosclerosis. 2. No acute infiltrates. Electronically signed by: John Magallon MD (02/13/2019 12:41 PM) [facility]
--- NOTE | 2019-02-13 14:20 | NUR ---
Swing Bed Note : Nursing Problem: Pt admitted to swing bed following outpatient surgery at [facility]. Pt had a right parathyroidectomy and will resume PT/OT for strengthening in preparation to return home with family. Cognitive/Behavioral: Pt has been confused most of the day and does not participate in conversation at meals. Pt has been pleasant and cooperative with assessment and cares. Speech is clear, able to make wants and needs known, able to intermittently verbalize understanding of others. Dementia diagnosis. Pain: Complains of pain in R knee, PRN pain medication given this am. She does have some incisional pain in neck, but denies need for pain medication this afternoon. Respiratory Status: Lungs diminished Bilateral Upper lobes RUL ALYSE A/P on room air, mild SOA with exertion. Occupational therapy noticed more shortness of breath and confusion than normal. Skin: Pt has a incision to her midline anterior neck from post parathyroidectomy. Mastisol and steri-strips to incision. Keep clean and dry. Dressing is in tact at this time. 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 Seems to be bruise and weeping from edema. Applied Aquacel foam to site. No need for picture at this time. BLE 4 + edema, shiny, and tight. DR Notified of changes. Bowel/Bladder Continence: Pt wears a brief for stress incontinence but is continent of bowel. LBM 5/29 Abdomen is soft and non tender, obese, active bowel sounds in all 4 quadrants. Patient is usually unaware when her she is wet. We are trying to toilet q 2 hours to help train bladder. ADL Functional Status: Pt is x1 assist for transfers and uses a walker and gait belt. Pt can swallow pills whole at this time. Patient seems tired today. Patient was able to assist with shower some and getting dressed with assistance. Patient is able to feed self. Labs, CXR done, awaiting DR Junior arrival. He talked about injecting her knee today with a steroid. Unsure if he will with increased INR and acute changes. Blossom Hernandez BAG MACHINE SET UP OPERATOR CMSRN [place]-
[2019-02-13 18:33] VITALS: BP 114/72
[2019-02-13] MEDS: LATANOPROST 0.005% OPHTH SOLUTION 2.5ML BOTTLE. OU SCH (19:47)
[2019-02-13] MEDS: SIMVASTATIN 40 MG TABLET. PO SCH (19:47)
[2019-02-13] MEDS: INSULIN GLARGINE 300 UNITS/3 ML INSULN.PEN. SQ SCH (20:43)
--- NOTE | 2019-02-13 21:10 | NUR ---
Swing Bed Note : Nursing Problem: Pt admitted to swing bed following outpatient surgery at [facility]. Pt had a right parathyroidectomy and will resume PT/OT for strengthening in preparation to return home with family. Cognitive/Behavioral: Pt has been pleasant and cooperative with assessment this evening. Speech is clear, able to make wants and needs known. Compliant with HS meds. Pain: Occasional knee pain. Denies pain at this time while resting in bed. Respiratory Status: Lungs diminished. Requires room air only. SOA with exertion. Skin: Pt has a incision to her midline anterior neck from post parathyroidectomy. Mastisol and steri-strips to incision. Keep clean and dry. Dressing is in tact at this time. Has a weeping area on RLE. Seems to be bruise and weeping from edema. Kerlix and Aquacel foam to site for protection and drainage. No need for picture at this time. BLE 4 + edema, shiny, and tight. Bilat feet cool and dusky but with strong palpable pedal pulses. Bowel/Bladder Continence: Pt wears a brief for stress incontinence but is continent of bowel. LBM 5/29 Abdomen is soft and non tender, obese, active bowel sounds in all 4 quadrants. Patient is usually unaware when her she is wet. We are trying to toilet q 2 hours to help train bladder. ADL Functional Status: Pt is x1 assist for transfers and uses a walker and gait belt. Pt can swallow pills whole at this time. Patient requires some assist with getting dressed. Patient is able to feed self. Dr Junior in the unit this evening. Dr Junior states he will inject knee tomorrow as he did not have time today. Shawna SALAZAR
[2019-02-14] MEDS: LEVOTHYROXINE 50 MCG TABLET PO SCH (06:02)
[2019-02-14 06:54] VITALS: BP 91/60
[2019-02-14 07:32] VITALS: BP 114/75
[2019-02-14] MEDS ORDERED: DEXTROSE ORAL GEL 15 GM TUBE. ONE (07:49)
[2019-02-14] MEDS: INSULIN LISPRO 300 UNITS/3 ML INSULN.PEN. SQ SCH ×3 (08:00→17:00)
[2019-02-14] MEDS: DICLOFENAC SODIUM 1% TOPICAL GEL 100GM TUBE. TP SCH ×2 (09:00→19:44)
[2019-02-14] MEDS: METOPROLOL SUCC 24HR ER 50 MG TAB.ER.24H. PO SCH (09:00)
[2019-02-14] MEDS: DORZOLAMIDE/TIMOLOL 2%/0.5% OPHTH SOLUTION 10ML BOTTLE. OU SCH ×2 (09:00→19:43)
[2019-02-14] MEDS: FUROSEMIDE 20 MG TABLET PO SCH (09:00)
[2019-02-14] MEDS: LACTOBACILLUS RHAMNOSUS GG 1 CAPSULE. PO SCH ×2 (09:15→19:43)
[2019-02-14] MEDS: POTASSIUM CHLORIDE 10 MEQ TABLET.ER. PO SCH (09:15)
[2019-02-14] MEDS: ALLOPURINOL 100 MG TABLET. PO SCH (09:15)
[2019-02-14] MEDS: GABAPENTIN 300 MG CAPSULE. PO SCH ×3 (09:15→19:43)
[2019-02-14] MEDS: LINAGLIPTIN 5 MG TABLET PO SCH (09:15)
--- NOTE | 2019-02-14 09:26 | RAD ---
CHEST AP ONLY History: Shortness of breath Comparison: February 13, 2019 Findings: Single view of the chest is submitted. Pericardial cardiac silhouette is again enlarged. There is atherosclerotic calcification near aortic arch. There is no new lobar consolidation, pleural fluid, pneumothorax. Impression: 1. No significant infiltrate is identified by radiograph. Electronically signed by: Gerard Lundberg MD (02/14/2019 9:23 AM) [id number]
--- NOTE | 2019-02-14 13:43 | NUR ---
Pharmacy Warfarin Dosing Note S:Pharmacy consulted to assist with anticoagulation therapy started 02/07/19 with target INR: 2 -3 O:RONNA MAYES is a 88 year old F with Atrial Fibrillation LABS: Last INR: 2.8 Last HGB: 11.6 Last HCT: 35.5 Last PLT: 258 Last dose of Hold given on 02/12/19 at 1600 Previous Regimen: 3MG DAILY WITH ONLY 1.5MG ON SUN, TU Vitamin K given: Drug Interaction Changes: Same Interacting Drug Ongoing Drug Interactions: ALLOPURINOL A:INR Within desired Range. Target Range for this patient is: 2 -3 P: Warfarin dose: Hold Today at 1600- Discussed INR of 2.[address] Junior, he wants it held again today because he is doing a knee pain injection. Bridge Therapy: None Next INR due 02/15/19 Pharmacy anticoagulation service will continue to follow. LAKISHA GAMBLE, 02/14/19 0914
[2019-02-14 15:04] VITALS: BP 129/79
[2019-02-14 18:23] VITALS: BP 112/75
[2019-02-14] MEDS: LATANOPROST 0.005% OPHTH SOLUTION 2.5ML BOTTLE. OU SCH (19:43)
[2019-02-14] MEDS: SIMVASTATIN 40 MG TABLET. PO SCH (19:43)
--- NOTE | 2019-02-14 20:25 | NUR ---
Swing Bed Note : Nursing Problem: Pt admitted to swing bed following outpatient surgery at [facility]. Pt had a right parathyroidectomy and will resume PT/OT for strengthening in preparation to return home with family. Cognitive/Behavioral: Pt is A/Ox4 with some forgetfulness and is hard of hearing. Pt has been pleasant and cooperative with assessment and cares. Speech is clear, able to make wants and needs known, able to intermittently verbalize understanding of others. Pain: Complains of pain on a 7 out of 10 scale in left knee with movement, refused PRN pain medication but did get volteran gel with relief. Respiratory Status: Lungs CTA, on room air, mild SOA with exertion, has PRN 02 if needed. She did not require any for this nurse. Skin: Pt has a incision to her midline anterior neck from post parathyroidectomy. Mastisol and steri-strips to incision. Keep clean and dry. Dressing is in tact at this time. Bowel/Bladder Continence: Pt wears a brief for stress incontinence but is continent of bowel. LBM 02/14 Abdomen is soft and non tender, obese, active bowel sounds in all 4 quadrants. Patient did have diarrhea at beginning of day per previous shift. ADL Functional Status: Pt is x1 assist for transfers and uses a walker and gait belt. Pt can swallow pills whole.
[2019-02-14] MEDS ORDERED: INSULIN GLARGINE 300 UNITS/3 ML INSULN.PEN. SQ SCH (21:00)
[2019-02-15] MEDS: LEVOTHYROXINE 50 MCG TABLET PO SCH (05:29)
[2019-02-15 05:34] VITALS: BP 126/77
[2019-02-15 06:42] LABS: ALBUMIN 1.9 g/dL (3.4-5.0); ALBUMIN/GLOBULIN RATIO 0.5 (1.0-1.7); CREATININE 1.4 mg/dL (0.6-1.0); GFR 35.5; POTASSIUM 4.7 mmol/L (3.5-5.1); TOTAL BILIRUBIN 0.5 mg/dL (0.2-1.0); TOTAL PROTEIN 5.8 g/dL (6.4-8.2)
[2019-02-15] MEDS: INSULIN LISPRO 300 UNITS/3 ML INSULN.PEN. SQ SCH ×3 (08:00→17:45)
[2019-02-15] MEDS: LACTOBACILLUS RHAMNOSUS GG 1 CAPSULE. PO SCH (08:53)
[2019-02-15] MEDS: POTASSIUM CHLORIDE 10 MEQ TABLET.ER. PO SCH (08:53)
[2019-02-15] MEDS: METOPROLOL SUCC 24HR ER 50 MG TAB.ER.24H. PO SCH (08:53)
[2019-02-15] MEDS: GABAPENTIN 300 MG CAPSULE. PO SCH ×2 (08:53→15:31)
[2019-02-15] MEDS: FUROSEMIDE 20 MG TABLET PO SCH (08:53)
[2019-02-15] MEDS: ALLOPURINOL 100 MG TABLET. PO SCH (08:53)
[2019-02-15] MEDS: LINAGLIPTIN 5 MG TABLET PO SCH (08:53)
[2019-02-15] MEDS: DICLOFENAC SODIUM 1% TOPICAL GEL 100GM TUBE. TP SCH (08:54)
[2019-02-15] MEDS: DORZOLAMIDE/TIMOLOL 2%/0.5% OPHTH SOLUTION 10ML BOTTLE. OU SCH (08:54)
--- NOTE | 2019-02-15 15:11 | NUR ---
Swing Bed Note : Nursing Problem: Pt admitted to swing bed following outpatient surgery at [facility]. Pt had a right parathyroidectomy and will resume PT/OT for strengthening in preparation to return home with family. Cognitive/Behavioral: Pt is A/Ox4 with some forgetfulness and is hard of hearing. Pt has been pleasant and cooperative with assessment and cares. Speech is clear, able to make wants and needs known, able to intermittently verbalize understanding of others. Pain: Complains of pain on a 7 out of 10 scale in left knee with movement, refused PRN pain medication but did get volteran gel with relief. Respiratory Status: Lungs CTA, on room air, mild SOA with exertion, has PRN 02 if needed. She did not require any for this nurse. Skin: Pt has a incision to her midline anterior neck from post parathyroidectomy. Mastisol and steri-strips to incision. Keep clean and dry. Dressing is in tact at this time. Bowel/Bladder Continence: Pt wears a brief for stress incontinence but is continent of bowel. LBM 02/14 Abdomen is soft and non tender, obese, active bowel sounds in all 4 quadrants. Patient did have diarrhea at beginning of day per previous shift. ADL Functional Status: Pt is x1 assist for transfers and uses a walker and gait belt. Pt can swallow pills whole.
--- NOTE | 2019-02-15 15:42 | NUR ---
Pharmacy Warfarin Dosing Note S:Pharmacy consulted to assist with anticoagulation therapy started 02/07/19 with target INR: 2 -3 O:RONNA MAYES is a 88 year old F with Atrial Fibrillation LABS: Last INR: 2 Last HGB: 11.6 Last HCT: 35.5 Last PLT: 258 Last dose of Hold given on 02/14/19 at 1600 Previous Regimen: 3MG DAILY WITH ONLY 1.5MG ON SUN, SUN Vitamin K given: Drug Interaction Changes: Same Interacting Drug Ongoing Drug Interactions: ALLOPURINOL A:INR Within desired Range. Target Range for this patient is: 2 -3 P: Warfarin dose: 2 mg Today at 1600 Bridge Therapy: None Next INR due 02/16/19 @ 0600 Pharmacy anticoagulation service will continue to follow. ASHLEY BROWN [facility], 02/15/19 9216
[2019-02-15] MEDS ORDERED: ALBUMIN HUMAN 25% 50 ML IV ONE (15:45)
[2019-02-15] MEDS ORDERED: WARFARIN 2 MG TABLET. PO ONE (16:00)
--- NOTE | 2019-02-15 17:45 | NUR ---
Patient is being D/C to med Surg tele to receive Albumin and IV Lasix. Patient and patients family made aware of that change. Patient is moved to room 124
[2019-02-15 17:56] VITALS: BP 120/80
[2019-02-15] MEDS ORDERED: DICL100G18 TP (19:14)
[2019-02-15] MEDS ORDERED: POTA10TA10 PO (19:14)
[2019-02-15] MEDS ORDERED: POLY17PO5 PO (19:14)
--- NOTE | 2019-02-20 12:34 | DS ---
DATE OF DISCHARGE: 02/15/2019 Discharge summary from Swing Bed to Acute Care. HOSPITAL COURSE: The patient is an 88-year-old female patient who underwent parathyroidectomy for primary hyperparathyroidism with symptomatic hypercalcemia and was admitted to swing bed at [facility]; however, the patient has been complaining of marked bilateral lower extremity edema with blisters forming and also mild erythema and therefore, a decision was made to transfer her to acute Care in [address] [place] [address] to start her on IV human albumin as well as IV Lasix. PHYSICAL EXAMINATION: GENERAL: On the day of discharge, the patient was resting, slightly propped up in her recliner, in no apparent respiratory distress, pale, but no jaundice, cyanosis, or thyromegaly. No jugular venous distension. No lower limb edema. VITAL SIGNS: Her heart rate was 98, blood pressure was 120/80, temperature was 98, respiratory rate was 20 and oxygen saturation was 94%. HEENT: Examination of the head, eyes, ears, nose and throat showed she is normocephalic, atraumatic. NECK: Supple. HEART: Showed normal first and second heart sounds. No gallop, rub or murmur. CHEST: Clear to auscultation. No crepitation or rhonchi. ABDOMEN: Slightly distended, soft, nontender. NEUROLOGIC: She is slightly hard of hearing, but otherwise all her cranial nerves are intact. EXTREMITIES: She moves all extremities without difficulty. She ambulates with a walker. Examination of her lower extremity showed no clubbing or cyanosis, but marked bilateral lower limb edema with small blisters and slight faint erythema. LABORATORY DATA: Her lab work showed a serum sodium 140, potassium 4.7, chloride 109, bicarbonate 25, anion gap of 6, BUN 23, creatinine 1.4, estimated GFR was 35 mL per minute. Her glucose was 60, calcium was 8. Total bilirubin and alkaline phosphatase were normal. AST, ALT was slightly elevated. Total protein was 5.8, albumin was 1.9. Her white cell count was 9000, hemoglobin 12, hematocrit 36, MCV 101 and platelet count 258,000. Her prothrombin time was 19.5, INR of 2. Urinalysis showed she has large amount of protein, large amount of glucose. The urine was negative for ketones, trace of blood, negative for nitrite and leukocyte esterase. There are 1-2 RBCs, 1-4 WBCs, and no bacteria. DISCHARGE MEDICATIONS: The patient was transferred to [address] [place] [address] to be started on IV Lasix as well as IV human albumin. She was transferred to continue on following medications, simvastatin 40 mg at bedtime, metoprolol succinate 50 mg once a day, diclofenac sodium 1 gram topically twice a day, oxycodone/APAP 5/325 one tablet every 4 hours, gabapentin 300 mg 3 times a day, potassium chloride 10 mEq once a day, dorzolamide/timolol 1 drop to both eyes twice a day, latanoprost 1 drop to both eyes at bedtime and she was also continued on polyethylene glycol 17 grams daily, as needed lactobacillus rhamnosus, linagliptin for Tradjenta 5 mg daily. She is on Basaglar KwikPen 10 units at bedtime and Humalog insulin 0-5 units subcutaneously 3 times a day before meals, levothyroxine sodium 50 mcg once a day, allopurinol 100 mg once a day. FINAL DISCHARGE DIAGNOSES: 1. Severe hypoalbuminemia with resultant marked bilateral lower extremity cellulitis and edema. 2. Other medical problems include, A. Type 2 diabetes mellitus. B. Hypertension. C. Hyperlipidemia. D. Hypothyroidism. E. Atrial fibrillation. F. Bilateral chondrocalcinosis. G. Glaucoma. H. Hyperparathyroidism, status post parathyroidectomy. CASEY CMKENZIE MD DR: JATIN/niurka JOB#: [id number] / [id number]
== END 2019-02-15 18:05 | disposition short-term general hospital (02) | DRG 641 ==
LOC: LND 13:30 → UNDOADMIN 13:30 → LND 17:02
PROVIDERS: ADMIT Internal Medicine; ATTEND Internal Medicine
DX: E83.52 Hypercalcemia (principal); L03.115 Cellulitis of right lower limb; L03.116 Cellulitis of left lower limb; E11.9 Type 2 diabetes mellitus without complications; H40.9 Unspecified glaucoma; I10 Essential (primary) hypertension; E89.2 Postprocedural hypoparathyroidism; I48.91 Unspecified atrial fibrillation; M19.90 Unspecified osteoarthritis, unspecified site; Z79.01 Long term (current) use of anticoagulants; Z79.899 Other long term (current) drug therapy; Z88.0 Allergy status to penicillin; Z88.2 Allergy status to sulfonamides; E88.09 Other disorders of plasma-protein metabolism, not elsewhere classified; R60.0 Localized edema; E03.9 Hypothyroidism, unspecified; M11.20 Other chondrocalcinosis, unspecified site
CPT/HCPCS: 36415; 71045; 73562; 80053; 81001; 82947; 83880; 85027; 85610; J1815; 97110; 97116; 97530; 97535

== ENCOUNTER 2019-02-15 17:21 | Inpatient (IN) | payer MEDICARE, MEDICAID ==
[~2019-02-15] VITALS: Ht 167.6 cm; Wt 78.1 kg
[~2019-02-15 17:21] MED LIST changes: +LACT1CAP21 PO; +OXYC1TAB15 PO
[2019-02-15 18:38] VITALS: BP 120/83
--- NOTE | 2019-02-15 18:45 | NUR ---
ADMISSION: PT TRANSFERRED TO [address] [place] [address] ROOM 124 ON PREVIOUS SHIFT FROM [facility]. DX: LOW ALBUMIN. PT WITH 4+ PITTING EDEMA TO BLLE. NEW ORDERS ENTERED FOR IV LASIX AND ALBUMIN. ORIENTED TO UNIT AND ROUTINES. POC DISCUSSED, V/U BUT WILL NEED REINFORCEMENT. CALL LIGHT IN REACH. BELONGINGS CHECKED AND LOGGED, LEFT IN ROOM WITH PATIENT.
[2019-02-15] MEDS ORDERED: POTA10TA10 PO (19:14)
[2019-02-15] MEDS ORDERED: DICL100G18 TP (19:14)
[2019-02-15] MEDS ORDERED: POLY17PO5 PO (19:14)
[2019-02-15] MEDS ORDERED: oxyCODONE/APAP 5/325 1 TAB TABLET PO PRN (19:15)
[2019-02-15] MEDS ORDERED: DEXTROSE 50% 25 GM / 50ML DISP.SYRIN. IV PRN (19:30)
[2019-02-15 20:05] VITALS: BP 122/75
[2019-02-15] MEDS: DICLOFENAC SODIUM 1% TOPICAL GEL 100GM TUBE. TP SCH (21:00)
[2019-02-15] MEDS: GABAPENTIN 300 MG CAPSULE. PO SCH (21:03)
[2019-02-15] MEDS: LATANOPROST 0.005% OPHTH SOLUTION 2.5ML BOTTLE. OU SCH (21:03)
[2019-02-15] MEDS: LACTOBACILLUS RHAMNOSUS GG 1 CAPSULE. PO SCH (21:03)
[2019-02-15] MEDS: ALBUMIN HUMAN 25% 50 ML IV SCH (21:03)
[2019-02-15] MEDS: DORZOLAMIDE/TIMOLOL 2%/0.5% OPHTH SOLUTION 10ML BOTTLE. OU SCH (21:03)
[2019-02-15] MEDS: SIMVASTATIN 40 MG TABLET. PO SCH (21:03)
[2019-02-15] MEDS: INSULIN GLARGINE 300 UNITS/3 ML INSULN.PEN. SQ SCH (21:13)
[2019-02-15 22:10] VITALS: BP 128/81
[2019-02-16 06:05] VITALS: BP 113/75
[2019-02-16] MEDS: LEVOTHYROXINE 50 MCG TABLET PO SCH (06:18)
[2019-02-16] MEDS: INSULIN LISPRO 300 UNITS/3 ML INSULN.PEN. SQ SCH ×3 (08:00→17:00)
[2019-02-16] MEDS ORDERED: POLYETHYLENE GLYCOL 3350 17 GM PACKET. PO PRN (09:00)
[2019-02-16] MEDS: GABAPENTIN 300 MG CAPSULE. PO SCH ×3 (09:21→20:07)
[2019-02-16] MEDS: METOPROLOL SUCC 24HR ER 50 MG TAB.ER.24H. PO SCH (09:21)
[2019-02-16] MEDS: POTASSIUM CHLORIDE 10 MEQ TABLET.ER. PO SCH (09:21)
[2019-02-16] MEDS: ALLOPURINOL 100 MG TABLET. PO SCH (09:21)
[2019-02-16] MEDS: LINAGLIPTIN 5 MG TABLET PO SCH (09:21)
[2019-02-16] MEDS: LACTOBACILLUS RHAMNOSUS GG 1 CAPSULE. PO SCH ×2 (09:22→20:07)
[2019-02-16] MEDS: DORZOLAMIDE/TIMOLOL 2%/0.5% OPHTH SOLUTION 10ML BOTTLE. OU SCH ×2 (09:22→20:07)
[2019-02-16] MEDS: FUROSEMIDE 20 MG/2 ML VIAL IVP SCH ×2 (09:22→15:25)
[2019-02-16] MEDS: DICLOFENAC SODIUM 1% TOPICAL GEL 100GM TUBE. TP SCH ×2 (09:24→20:08)
[2019-02-16] MEDS: ALBUMIN HUMAN 25% 50 ML IV SCH ×2 (09:28→20:07)
[2019-02-16 10:42] VITALS: BP 117/70
--- NOTE | 2019-02-16 12:25 | HP ---
ADMIT DATE: 02/16/2019 HISTORY OF PRESENT ILLNESS: The patient is an 88-year-old female patient, who was transferred from discharge from swing bed as she was noted to have marked bilateral lower limb edema. Most likely due to third spacing as her serum albumin is only 1.9 g/dL. There also legs were oozing with some slight erythema concerning for possibility of cellulitis and therefore we started her on IV human albumin 25 grams twice a day with Lasix 20 mg IV twice a day. The patient, herself denied any shortness of breath, orthopnea or paroxysmal nocturnal dyspnea. PAST MEDICAL HISTORY: Significant for type 2 diabetes mellitus, hypertension, hyperlipidemia, hypothyroidism. She is also known to have atrial fibrillation, rate controlled, well anticoagulated; history of gout and actually pseudogout. 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 History of osteomyelitis involving right fifth digit hypercalcemia due to primary hyperparathyroidism, status post parathyroidectomy. PAST SURGICAL HISTORY: Significant for left eye surgery, total abdominal hysterectomy, bilateral salpingo-oophorectomy, appendectomy and further parathyroidectomy. ALLERGIES: She is allergic to PENICILLIN and SULFA DRUGS. FAMILY HISTORY: She has one sister still alive and younger, but does not know if she has any medical problems. Her father in his 70s, but she does not know the cause of his . Mother also is . SOCIAL HISTORY: She is , has 2 sons and 1 daughter. She currently lives with her daughter. She never smoked, does not drink alcohol. 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 MEDICATIONS: She is currently on following medications: She is on Coumadin 3 mg daily, simvastatin 40 mg at bedtime, metoprolol succinate 50 mg once a day, diclofenac sodium 100 grams apply 1 gram topically twice a day to her left knee, oxycodone/APAP 5/325 one tablet every 4 hours as needed, gabapentin 300 mg 3 times a day, potassium chloride 10 mEq daily, dorzolamide/timolol 1 drop to both eyes twice a day, latanoprost 1 drop to both eyes at bedtime, polyethylene glycol 17 grams daily, lactobacillus rhamnosus 1 capsule twice a day, linagliptin 5 mg daily, Lantus insulin 10 units at bedtime. She is on Humalog insulin as insulin sliding scale before meals only, levothyroxine 50 mcg once a day, and allopurinol 100 mg once a day. REVIEW OF SYSTEMS: As per history of present illness. PHYSICAL EXAMINATION GENERAL: When I examined her, she looked somewhat pale, not jaundiced or cyanosed. No lymphadenopathy, no thyromegaly. No jugular venous distention, but marked bilateral lower limb edema. VITAL SIGNS: Her heart rate was 92, blood pressure was 120/80, temperature was 98, respiratory rate was 20, and oxygen saturation was 94%. HEAD, EYES, EARS, NOSE, AND THROAT: Showed normocephalic, atraumatic. NECK: Supple. HEART: Showed normal first and second heart sounds. No gallop, rub or murmur. CHEST: Clear to auscultation. No crepitation or rhonchi. ABDOMEN: Slightly distended, soft, nontender. No guarding or rigidity. No organomegaly. All hernial orifice intact. Bowel sounds normal. NEUROLOGIC: She was hard of hearing, but otherwise all the cranial nerves intact. EXTREMITIES: She moves extremities without difficulty. She ambulates with a walker. LABORATORY DATA: Showed her serum sodium was 140, potassium 4.7, chloride 109, bicarbonate 25, anion gap of 6, BUN 23, creatinine 1.4, estimated GFR was 35 mL per minute. Her glucose was 60, calcium was 8. Total bilirubin, AST, ALT slightly elevated. Alkaline phosphatase normal. Total protein was 5.8, albumin was 1.9. Her prothrombin time was 19.5, INR of 2. Her most recent white cell count was 9000, hemoglobin 11.6, hematocrit 35.5, MCV 101, and platelet count 258,000. Her urinalysis showed that the urine was straw colored, clear, pH of 8.5, specific gravity of 1.020. There is large amount of protein, large amount of glucose. The urine was negative for ketones, trace of blood, negative for nitrite and albumin and bilirubin, negative leukocyte esterase, 1-2 rbc's, 1-4 wbc's, and no bacteria. ASSESSMENT AND PLAN: In summary, this is an 88-year-old female patient with severe hypoalbuminemia and marked bilateral lower extremity swelling, edema with oozing and faint erythema. The patient was admitted to Acute Care in [address] [place] [address]. We will start her on IV Lasix 20 mg twice a day as well as human albumin 25 grams IV twice a day. We will monitor her labs closely, particularly potassium. Continue with physical and occupational therapy. Continue to monitor her blood sugar and adjust insulin as needed. CASEY CMKENZIE MD DR: JATIN/niurka JOB#: [id number] / [id number]
[2019-02-16 12:37] LABS: ALBUMIN 2.5 g/dL (3.4-5.0); ALBUMIN/GLOBULIN RATIO 0.6 (1.0-1.7); CALCIUM 8.6 mg/dL (8.5-10.1); CREATININE 1.4 mg/dL (0.6-1.0); GFR 35.5; POTASSIUM 4.7 mmol/L (3.5-5.1); TOTAL BILIRUBIN 0.5 mg/dL (0.2-1.0); TOTAL PROTEIN 6.6 g/dL (6.4-8.2)
[2019-02-16 12:44] LABS: BASO % 1 % (0-3); EOS # 0.2 x10^3/uL (0.0-0.7); EOS % 3 % (0-3); HEMATOCRIT 34.8 % (36.0-47.0); HEMOGLOBIN 11.4 g/dL (12.0-15.5); LYMPH % 15 % (24-48); MEAN CORPUSCULAR HEMOGLOBIN 33 pg (25-35); MEAN CORPUSCULAR HGB CONC 33 g/dL (31-37); MEAN CORPUSCULAR VOLUME 101 fL (79-100); MONO # 0.5 x10^3/uL (0.0-1.1); MONO % 7 % (0-9); NEUT # 4.9 x10^3uL (1.8-7.7); NEUT % 74 % (31-73); PLATELET COUNT 280 x10^3/uL (140-400); RED BLOOD COUNT 3.46 x10^6/uL (3.50-5.40); RED CELL DISTRIBUTION WIDTH 14.7 % (11.5-14.5); WHITE BLOOD COUNT 6.7 x10^3/uL (4.0-11.0)
--- NOTE | 2019-02-16 12:54 | NUR ---
Pharmacy Warfarin Dosing Note S:Pharmacy consulted to assist with anticoagulation therapy started with target INR: 2 -3 O:RONNA MAYES is a 88 year old F with Atrial Fibrillation LABS: Last INR: 1.6 Last HGB: 11.4 Last HCT: 34.8 Last PLT: 280 Last dose of 2 mg given on 02/15/19 at 1600 Previous Regimen: Vitamin K given: N Drug Interaction Changes: Same Interacting Drug Ongoing Drug Interactions: A:INR Below desired Range. Target Range for this patient is: 2 -3 P: Warfarin dose: 3 mg Today at 1600 Bridge Therapy: None Next INR due 02/17/19 @0600 Pharmacy anticoagulation service will continue to follow. ASHLEY BROWN [facility], 02/16/19 1048
[2019-02-16 14:42] VITALS: BP 119/78
[2019-02-16] MEDS ORDERED: WARFARIN 3 MG TABLET. PO SCH (16:00)
[2019-02-16 19:32] VITALS: BP 119/76
[2019-02-16] MEDS: SIMVASTATIN 40 MG TABLET. PO SCH (20:07)
[2019-02-16] MEDS: LATANOPROST 0.005% OPHTH SOLUTION 2.5ML BOTTLE. OU SCH (20:07)
[2019-02-16] MEDS: INSULIN GLARGINE 300 UNITS/3 ML INSULN.PEN. SQ SCH (20:30)
--- NOTE | 2019-02-16 20:57 | NUR ---
Went over plan of care with patient. Patient voiced understanding. Call light within reach. Will continue to monitor.
[2019-02-16 23:09] VITALS: BP 107/75
--- NOTE | 2019-02-17 01:33 | PN ---
DATE: 02/16/2019 SUBJECTIVE: The patient was transferred yesterday from [facility] to [address] [place] [address] on account of marked bilateral lower limb edema, severe hypoalbuminemia and oozing from both lower extremities and slight erythema, although the patient has no fever. We did start her on Lasix 20 mg IV twice a day together with human albumin 25 grams twice a day. She did actually very well. She, in fact, has lost about 7 pounds and clearly her edema is improving. The skin started to wrinkle. PHYSICAL EXAMINATION: GENERAL: When I saw her this morning, she looked well and was clearly in no apparent respiratory distress, slightly pale, but no jaundice, cyanosis or thyromegaly. No jugular venous distention. No lower limb edema. VITAL SIGNS: Her heart rate was 94, blood pressure 117/70, temperature was 97.3, respiratory rate 20 and oxygen saturation was 96%. HEAD, EYES, EARS, NOSE AND THROAT: Showed normocephalic, atraumatic. NECK: Supple. HEART: Showed normal first and second heart sounds with no gallop, rub or murmur. CHEST: Clear to auscultation. No crepitation or rhonchi. NEUROLOGIC: She is awake, alert. All her cranial nerves are intact. She moves extremities without difficulty. She ambulates with a walker with standby assist. PLAN: Repeat all her lab work this morning as we need to keep an eye on her potassium closely now that she is on 20 mg of Lasix twice a day. We will also monitor her PT/INR and adjust her Coumadin to maintain INR between 2 to 0.5. CASEY MCKENZIE MD DR: JATIN/niurka JOB#: [id number] / [id number]
[2019-02-17 05:11] VITALS: BP 128/76
[2019-02-17] MEDS: LEVOTHYROXINE 50 MCG TABLET PO SCH (05:14)
--- NOTE | 2019-02-17 06:12 | NUR ---
Patient very tearful this morning, stating to this nurse she does not want to get the albumin any more, states that she is afraid it is making her worse. This nurse went over benefits and risk with patient. Patient voiced understanding. Will let oncoming shift know of patients concerns.
[2019-02-17] MEDS: INSULIN LISPRO 300 UNITS/3 ML INSULN.PEN. SQ SCH ×2 (08:00→12:00)
[2019-02-17] MEDS: DORZOLAMIDE/TIMOLOL 2%/0.5% OPHTH SOLUTION 10ML BOTTLE. OU SCH (08:12)
[2019-02-17] MEDS: POTASSIUM CHLORIDE 10 MEQ TABLET.ER. PO SCH (08:13)
[2019-02-17] MEDS: ALLOPURINOL 100 MG TABLET. PO SCH (08:13)
[2019-02-17] MEDS: LACTOBACILLUS RHAMNOSUS GG 1 CAPSULE. PO SCH (08:13)
[2019-02-17] MEDS: DICLOFENAC SODIUM 1% TOPICAL GEL 100GM TUBE. TP SCH (08:13)
[2019-02-17] MEDS: METOPROLOL SUCC 24HR ER 50 MG TAB.ER.24H. PO SCH (08:13)
[2019-02-17] MEDS: LINAGLIPTIN 5 MG TABLET PO SCH (08:14)
[2019-02-17] MEDS: GABAPENTIN 300 MG CAPSULE. PO SCH ×2 (08:14→15:22)
[2019-02-17] MEDS: FUROSEMIDE 20 MG/2 ML VIAL IVP SCH ×2 (08:14→15:22)
[2019-02-17] MEDS: ALBUMIN HUMAN 25% 50 ML IV SCH (08:21)
--- NOTE | 2019-02-17 08:36 | NUR ---
Pharmacy Warfarin Dosing Note S:Pharmacy consulted to assist with anticoagulation therapy started with target INR: 2 -3 O:RONNA MAYES is a 88 year old F with Atrial Fibrillation LABS: Last INR: 1.7 Last HGB: 11.4 Last HCT: 34.8 Last PLT: 280 Last dose of 3 mg given on 02/16/19 at 1728 Previous Regimen: Vitamin K given: N Drug Interaction Changes: Same Interacting Drug Ongoing Drug Interactions: ALLOPURINOL A:INR Below desired Range. Target Range for this patient is: 2 -3 Patient had warfarin held 02/12-02/14 so INR should slowly respond - patient meets criteria to follow the high risk protocol P: Warfarin dose: 3 mg Today at 1600 Bridge Therapy: None Next INR due 02/18/19 Pharmacy anticoagulation service will continue to follow. LAKISHA GAMBLE, 02/17/19 0836
[2019-02-17 11:00] VITALS: BP 121/83
[2019-02-17 14:40] LABS: CALCIUM 8.6 mg/dL (8.5-10.1); CREATININE 1.4 mg/dL (0.6-1.0); GFR 35.5; POTASSIUM 4.8 mmol/L (3.5-5.1)
[2019-02-17 15:50] VITALS: BP 137/83
--- NOTE | 2019-02-17 18:10 | NUR ---
Discharge Note: RONNA MAYES [address] Discharge instructions and discharge home medications reviewed with Patient and a copy given. All questions have been answered and understanding verbalized. The following instructions and handouts were given: WARFARIN THERAPY Discontinued lines and drains: IV IN LFA D/C, TIP IN TACT, NO REDNESS OBSERVED, PRESSURE DRESSING IN PLACE. Patient discharged to HOME WITH HOME HEALTH. FAMILY PRESENT AT BEDSIDE FOR DISCHARGE. AMBULATED IN WHEEL CHAIR TO FRONT OF BUILDING AND LEFT WITH DAUGHTER IN [place].
--- NOTE | 2019-02-18 01:33 | DS ---
DATE OF DISCHARGE: 02/17/2019 HOSPITAL COURSE: The patient is an 88-year-old female patient who was originally admitted with dehydration and was found to have hypercalcemia and further lab work showed that her intact PTH was high at 353. She underwent parathyroidectomy and she was transferred back to [facility] swing bed to start the process of rehabilitation. Unfortunately, she was noted to have marked swelling of her legs and lab work showed that she has severe hypoalbuminemia where the serum albumin is only 1.9 and therefore, a decision was made to transfer her to acute care and started on human albumin as well as Lasix 20 mg IV twice a day. She did generally well. She continued to have swelling of both lower extremities; however, physical therapy stated that she has been doing very well with her mobility, walking with a walker without difficulty and therefore, a decision was made to discharge her home with home health. PHYSICAL EXAMINATION: GENERAL: When I saw her this afternoon, she looked well and was clearly in no apparent respiratory distress, but somewhat pale, but no jaundice or cyanosis. No lymphadenopathy, no thyromegaly. No jugular venous distension. No limb edema. VITAL SIGNS: Her heart rate was 93, blood pressure 137/83, temperature was 98, respiratory rate was 20, and oxygen saturation was 100%. HEAD, EYES, EARS, NOSE AND THROAT: Normocephalic, atraumatic. NECK: Supple. HEART: Showed normal first and second heart sounds. No gallop, rub or murmur. CHEST: Clear to auscultation. No crepitation or rhonchi. ABDOMEN: Distended, soft, nontender. No guarding or rigidity. No organomegaly. All hernial orifices intact. Bowel sounds normal. NEUROLOGIC: She was awake, alert, ____. LABORATORY DATA: Today showed a serum sodium 143, potassium 4.7, chloride 109, bicarbonate 25, anion gap of 9, BUN 19, creatinine 1.4, estimated GFR was 35.5 mL, glucose 120, calcium was 8.6, magnesium was 1.9, serum albumin is 2.5. Her white cell count was 6700, hemoglobin 11, hematocrit 34, MCV 101 and platelet count of 280,000. DISCHARGE MEDICATIONS: She will be discharged home to continue on her Coumadin 3 mg once a day, furosemide 20 mg once a day, polyethylene glycol 17 grams daily, metoprolol 50 mg once a day, linagliptin 5 mg once a day, allopurinol 100 mg once a day. She is on Humalog insulin before meals, insulin sliding scale, potassium chloride 10 mEq once a day, levothyroxine 50 mcg once a day, latanoprost 1 drop to both eyes at bedtime, Lactobacillus rhamnosus 1 capsule twice a day, gabapentin 300 mg 3 times a day, dorzolamide/timolol one drop twice a day, simvastatin 40 mg at bedtime, Lantus insulin 10 units at bedtime, oxycodone/APAP 5/____one tablet every 4-6 hours. FINAL DISCHARGE DIAGNOSES: An 88-year-old female patient with severe hypoalbuminemia and marked bilateral lower extremity cellulitis, the edema and oozing, faint erythema. Other medical problems include type 2 diabetes mellitus, hypertension, hyperlipidemia, hypothyroidism, atrial fibrillation, bilateral chondrocalcinosis, glaucoma, hyperparathyroidism, status post parathyroidectomy. CASEY MCKENZIE MD DR: JATIN/niurka JOB#: [id number] / [id number]
--- NOTE | 2019-02-19 17:46 | EKG ---
[address] [address] Test Date: 2019-02-16 Test Time: 14:37:13 Pat Name: RONNA MAYES Department: Room: 124 A Gender: F Grey Percher: : 1930 Requested By: CASEY MCKENZIE Order Number: [id number] Reading MD: Measurements Intervals [place] Rate: 93 P: -90 ID: [id number] QRS: 36 QRSD: 108 T: -35 QT: 370 QTc: 463 Interpretive Statements SINUS RHYTHM PROLONGED ID INTERVAL R-S TRANSITION ZONE IN V LEADS DISPLACED TO THE RIGHT INCOMPLETE RIGHT BUNDLE BRANCH BLOCK ST & T ABNORMALITY, CONSIDER INFERIOR ISCHEMIA OR LEFT VENTRICULAR STRAIN ABNORMAL ECG RI6.02 No previous ECG available for comparison
== END 2019-02-17 18:11 | disposition home health service (06) | DRG 602 ==
LOC: 1 SOUTH 17:21
PROVIDERS: ADMIT Internal Medicine; ATTEND Internal Medicine
DX: L03.115 Cellulitis of right lower limb (principal); E43 Unspecified severe protein-calorie malnutrition; L03.116 Cellulitis of left lower limb; E11.9 Type 2 diabetes mellitus without complications; I10 Essential (primary) hypertension; E78.5 Hyperlipidemia, unspecified; E03.9 Hypothyroidism, unspecified; I48.91 Unspecified atrial fibrillation; M10.9 Gout, unspecified; E86.0 Dehydration; H40.9 Unspecified glaucoma; M11.20 Other chondrocalcinosis, unspecified site; Z90.710 Acquired absence of both cervix and uterus; Z79.899 Other long term (current) drug therapy; Z88.0 Allergy status to penicillin; Z88.2 Allergy status to sulfonamides; Z68.27 Body mass index [BMI] 27.0-27.9, adult
CPT/HCPCS: 36415; 80048; 80053; 82947; 83735; 85025; 85610; 93005; J1815; P9046

== ENCOUNTER 2020-03-16 09:33 | Inpatient (IN) | payer MEDICAID, MEDICARE ==
[~2020-03-16] VITALS: Ht 165.1 cm; Wt 79.4 kg
[~2020-03-16 09:33] MED LIST changes: +DICL100G18 TP; +POLY17PO5 PO; +POTA10TA10 PO; +SIMV40TA18 PO; -SIMV40TA3 PO
[2020-03-16 09:54] VITALS: BP 153/74
[2020-03-16 10:45] LABS: BASO # 0.2 x10^3/uL (0.0-0.2); BASO % 1 % (0-3); EOS % 0 % (0-3); HEMATOCRIT 37.2 % (36.0-47.0); HEMOGLOBIN 12.1 g/dL (12.0-15.5); LYMPH # 0.9 x10^3/uL (1.0-4.8); LYMPH % 5 % (24-48); MEAN CORPUSCULAR HEMOGLOBIN 33 pg (25-35); MEAN CORPUSCULAR HGB CONC 33 g/dL (31-37); MEAN CORPUSCULAR VOLUME 103 fL (79-100); MONO # 0.9 x10^3/uL (0.0-1.1); MONO % 5 % (0-9); NEUT # 15.6 x10^3uL (1.8-7.7); NEUT % 89 % (31-73); PLATELET COUNT 189 x10^3/uL (140-400); RED BLOOD COUNT 3.63 x10^6/uL (3.50-5.40); WHITE BLOOD COUNT 17.6 x10^3/uL (4.0-11.0)
[2020-03-16] MEDS ORDERED: oxyCODONE/APAP 5/325 1 TAB TABLET PO PRN (10:45)
[2020-03-16] MEDS ORDERED: POLYETHYLENE GLYCOL 3350 17 GM PACKET. PO PRN (10:45)
[2020-03-16 10:58] LABS: ALBUMIN 2.9 g/dL (3.4-5.0); ALBUMIN/GLOBULIN RATIO 0.6 (1.0-1.7); CALCIUM 8.8 mg/dL (8.5-10.1); CREATININE 2.3 mg/dL (0.6-1.0); POTASSIUM 4.1 mmol/L (3.5-5.1); TOTAL BILIRUBIN 1.1 mg/dL (0.2-1.0); TOTAL PROTEIN 7.4 g/dL (6.4-8.2)
--- NOTE | 2020-03-16 11:24 | HP ---
ADMIT DATE: 03/16/2020 ATTENDING PHYSICIAN: Dr. Ball. CHIEF COMPLAINT: Weakness and leg swelling. HISTORY OF PRESENT ILLNESS: The patient is an 89-year-old female who lives independently with her daughter as the primary training program assistant. She has not been feeling well for the last 3 days. She is on a diuretic for chronic pedal edema. She is clinically dry. Lab work is pending at this time. Creatinine is pending. On exam, she is dry. She also has redness and erythema involving the lower right extremities. She is diabetic. She is admitted to the hospital with worsening dehydration and cellulitis, refractory to outpatient care. PAST MEDICAL HISTORY: Significant for confusion. Much of the history is obtained from the daughter. She is diabetic. She has essential hypertension, glaucoma, frequent cellulitis and several admissions for generalized debilitation. She has some benign thyroid nodules removed. She is also hypothyroid, on replacement. ALLERGIES: She has allergies to PENICILLIN and SULFA DRUGS, causing rashes. CURRENT MEDICATIONS: Include Zocor, metoprolol, diclofenac gel, oxycodone, Neurontin, potassium supplementation, timolol eyedrops, latanoprost, MiraLax, lactobacillus, Tradjenta, insulin regular and lispro, Synthroid 50 mcg daily, allopurinol and Tylenol p.r.n. SOCIAL HISTORY: She is a nonsmoker, nondrinker. FAMILY HISTORY: Her mom and dad within the year of each other. They lived age 90. She is retired. She is forgetful and the daughter is the multimedia specialist neurology technologist and the training program assistant. REVIEW OF SYSTEMS: Significant for some loose stools over the weekend. She denied any fevers or chills. Her appetite has been fair. Sleeping alright. She has localized swelling and pain in the right ankle. All other systems reviewed and determined to be negative. PHYSICAL EXAMINATION: GENERAL: I saw her, this is a pleasant elderly female who was a bit confused and could not comprehend the entire situation. VITAL SIGNS: Initial vital sign is on the database. HEENT: Head is without trauma. Pupils are reactive. Sclerae nonicteric. The oropharynx is clear. NECK: Supple, no bruits identified. LUNGS: Otherwise clear. CARDIOVASCULAR: Showed regular heart tones. No gallops. Peripheral pulses are palpable and full. ABDOMEN: Soft, protuberant. No organomegaly. Bowel sounds are hypoactive. EXTREMITIES: Showed 2+ edema. There is redness and erythema involving the anterior surface of the right ortiz, extending up to the knee. No localized lesions or drainage or abscess is identified. LABORATORY DATA: CBC, chemistry panel and blood cultures have been drawn and are pending at this time. ASSESSMENT: 1. This 89-year-old female has dehydration, aggravated by diuretics. 2. Cellulitis of the right leg. 3. Type 2 diabetes mellitus. 4. Underlying dementia. 5. History of gout. 6. History of thyroid surgery. 7. Hypothyroidism, on replacement. PLAN: 1. Admit to the inpatient unit. 2. Blood and urine cultures. 3. Empiric Rocephin has been started, pending cultures. 4. Gentle IV hydration. 5. Serial chemistries. 6. I have held her diuretics. 7. Diabetic diet as tolerated. ELA BALL MD DR: KRZYSZTOF/nuirka JOB#: [id number] / [id number] MARIOLA Sanabria
--- NOTE | 2020-03-16 11:30 | NUR ---
The patient, RONNA MAYES, 89 y/o, F admitted by ELA ABRAHAM MD, was given written information regarding hospital policies, unit procedures and contact persons. Valuables were checked and left in room. Daughter took clothing home and will bring new belongings tomorrow. Patient is a direct admission from [facility] office for dehydration, diarrhea and weakness. Patient states she has had loose stool since yesterday morning, states she is feeling weak but per patient "doesn't need to be hospitalized for this" Patient lives at home with daughter, family involved and denies home health services for discharge. Home meds verified with family and patient. Orders placed by Dr Abraham, physician here at this time to see patient.
[2020-03-16] MEDS: IV NORMAL SALINE 1,000ML 1,000 ML IV SCH (11:51)
[2020-03-16] MEDS ORDERED: CHOL400T36 PO (11:54)
--- NOTE | 2020-03-16 12:30 | NUR ---
Labs and blood cultures obtained, per Dr Abraham no lactic acid order needed.
[2020-03-16 14:29] LABS: % LYMPHS 2 % (24-48); % MONOS 4 % (0-10); % SEGS 94 % (35-66)
[2020-03-16 14:32] LABS: PLT ESTIMATE ADEQUATE (ADEQUATE)
[2020-03-16 16:00] VITALS: BP 144/78
--- NOTE | 2020-03-16 16:30 | NUR ---
Patient has had 1 soft stool and 1 episode of diarrhea with incontinence. Patient tearful during episode, states she hates having others care for her. Spoke with Dr Abraham in regards to if patient needs CDiff order placed, no orders placed per request. Patient given crackers and sprite for snack and orders soup for dinner per request. Continues on IV fluids for hydration and antibiotics for treatment of cellulitis.
[2020-03-16 18:47] LABS: CLARITY,URINE CLOUDY; COLOR,URINE YELLOW
[2020-03-16 18:48] LABS: BILIRUBIN,URINE NEG (NEG); GLUCOSE,URINE 250 mg/dL (NEG); NITRITE,URINE NEG (NEG); UROBILINOGEN,URINE 0.2 mg/dL (0.2 mg/dL)
[2020-03-16 18:49] LABS: BACTERIA,URINE FEW /HPF (0-FEW); SQUAMOUS EPITHELIAL CELL,UR OCC /LPF; WBC,URINE 20-40 /HPF (0-4)
[2020-03-16 19:11] VITALS: BP 169/77
[2020-03-16] MEDS: LATANOPROST 0.005% OPHTH SOLUTION 2.5ML BOTTLE. OU SCH (20:39)
[2020-03-16] MEDS: DORZOLAMIDE/TIMOLOL 2%/0.5% OPHTH SOLUTION 10ML BOTTLE. OU SCH (20:39)
[2020-03-16] MEDS: LACTOBACILLUS RHAMNOSUS GG 1 CAPSULE. PO SCH (20:39)
[2020-03-16] MEDS: INSULIN GLARGINE SYRINGE. SQ SCH (20:41)
[2020-03-16 23:02] VITALS: BP 133/57
[2020-03-17] MEDS: IV NORMAL SALINE 1,000ML 1,000 ML IV SCH ×2 (00:30→10:36)
[2020-03-17] MEDS: LEVOTHYROXINE 50 MCG TABLET PO SCH (05:28)
--- NOTE | 2020-03-17 05:36 | NUR ---
Shift Note: Pt is a/o x4 (forgetfulness at HS, calling out for her daughter, pt reoriented to surroundings), VSS, no c/o pain or n/v at this time, pt ambulating w/standby assist to bathroom, pt does experience some stress incontinence but otherwise has been continent of bowel and bladder, pt does continue to have swelling and redness of bilateral LE (increased more on the right), pt has been pleasant and cooperative with staff.
[2020-03-17 05:44] VITALS: BP 135/68
[2020-03-17 07:40] LABS: BASO % 0 % (0-3); EOS # 0.1 x10^3/uL (0.0-0.7); EOS % 1 % (0-3); HEMATOCRIT 33.8 % (36.0-47.0); HEMOGLOBIN 11.2 g/dL (12.0-15.5); LYMPH # 1.2 x10^3/uL (1.0-4.8); LYMPH % 10 % (24-48); MEAN CORPUSCULAR HEMOGLOBIN 33 pg (25-35); MEAN CORPUSCULAR HGB CONC 33 g/dL (31-37); MEAN CORPUSCULAR VOLUME 101 fL (79-100); MONO # 0.9 x10^3/uL (0.0-1.1); MONO % 8 % (0-9); NEUT # 9.6 x10^3uL (1.8-7.7); NEUT % 81 % (31-73); PLATELET COUNT 198 x10^3/uL (140-400); RED BLOOD COUNT 3.34 x10^6/uL (3.50-5.40); RED CELL DISTRIBUTION WIDTH 15.3 % (11.5-14.5); WHITE BLOOD COUNT 11.8 x10^3/uL (4.0-11.0)
[2020-03-17 07:58] LABS: ALBUMIN 2.2 g/dL (3.4-5.0); ALBUMIN/GLOBULIN RATIO 0.5 (1.0-1.7); CALCIUM 8.3 mg/dL (8.5-10.1); GFR 23.5; POTASSIUM 3.7 mmol/L (3.5-5.1); TOTAL BILIRUBIN 0.6 mg/dL (0.2-1.0); TOTAL PROTEIN 6.3 g/dL (6.4-8.2)
[2020-03-17] MEDS: ALLOPURINOL 100 MG TABLET. PO SCH (09:14)
[2020-03-17] MEDS: CHOLECALCIFEROL (VITAMIN D3) 1,000 UNIT TABLET PO SCH (09:14)
[2020-03-17] MEDS: LACTOBACILLUS RHAMNOSUS GG 1 CAPSULE. PO SCH ×2 (09:14→21:06)
[2020-03-17] MEDS: DORZOLAMIDE/TIMOLOL 2%/0.5% OPHTH SOLUTION 10ML BOTTLE. OU SCH ×2 (09:15→21:06)
[2020-03-17] MEDS: METOPROLOL SUCC 24HR ER 50 MG TAB.ER.24H. PO SCH (09:15)
[2020-03-17] MEDS: LINAGLIPTIN 5 MG TABLET PO SCH (09:15)
[2020-03-17] MEDS: GABAPENTIN 300 MG CAPSULE. PO SCH (09:15)
[2020-03-17] MEDS: POTASSIUM CHLORIDE 10 MEQ TABLET.ER. PO SCH (09:15)
--- NOTE | 2020-03-17 10:12 | NUR ---
Patient doing well today, worked with PT/OT this AM requiring standby assist with gait belt and walker. Awaiting for Dr Junior to see patient today. Continues on IV fluids and ABT for cellulitis and dehydration. Remains continent of B&B and denies episodes of diarrhea so far this shift. Will continue to monitor.
[2020-03-17 11:43] VITALS: BP 134/74
[2020-03-17 14:44] VITALS: BP 124/73
--- NOTE | 2020-03-17 16:14 | PN ---
DATE: 03/17/2020 SUBJECTIVE: The patient is resting, slightly propped up in bed, in no apparent respiratory distress. She is awake, alert, wanting to go home; however, her right lower extremity is definitely swollen, hot to touch and erythematous compared to the left leg. Her baseline serum creatinine is 1.4 and yesterday she came with a creatinine of 2.3. White cell count was elevated at 17,600 with 89% polymorphs. She has also a questionable UTI as she has large number of white cell count, 20-40 wbc's. Her blood culture is still pending at the time of this dictation. PHYSICAL EXAMINATION: GENERAL: When I examined her this afternoon, she looked well and was clearly in no apparent respiratory distress, pale. No jaundice, cyanosis or thyromegaly. No jugular venous distention or limb edema. VITAL SIGNS: Her heart rate was 80, blood pressure was 134/74, temperature 97.3, respiratory rate was 14 and oxygen saturation was 94% on room air. HEAD, EYES, EARS, NOSE AND THROAT: Showed normocephalic, atraumatic. NECK: Supple. HEART: Showed normal first and second heart sounds. No gallop, rub or murmur. CHEST: Clear to auscultation. No crepitation or rhonchi. ABDOMEN: Distended, soft, nontender. No guarding or rigidity. No organomegaly. All hernial orifice intact. Bowel sounds normal. NEUROLOGIC: She is awake, alert, definitely more lucid today compared to yesterday according to nursing staff and all her cranial nerves are intact. She moves extremities without difficulty. Her right lower extremity is definitely more swollen, erythematous and hot to touch. Her intake over the last 24 hours was incompletely recorded. LABORATORY DATA: Her lab work this morning showed a white cell count down to 11,800, hemoglobin 11.2, hematocrit 33.8, MCV 101 and platelet count of 198,000 with a manual differential showed 81% polymorphs, 10% lymphocytes, 8% monocytes. Her prothrombin time was 28.7, INR of 2.8. Her serum sodium was 138, potassium 3.7, chloride 108, bicarbonate 19, anion gap of 11, BUN 30, creatinine 2, estimated GFR was 23 mL per minute. Her glucose 114, calcium was 8.3. Total bilirubin, AST, ALT, alkaline phosphatase were normal. Total protein 6.3, albumin 2.2. ASSESSMENT: 1. Dehydration and acute on chronic kidney injury. 2. Right lower extremity cellulitis. 3. Type 2 diabetes mellitus. 4. Hypothyroidism. 5. Underlying dementia. PLAN: I will change her antibiotic to Zyvox and meropenem. Continue with gentle hydration. We will do her lab works again tomorrow. CASEY MCKENZIE MD DR: JATIN/niurka JOB#: [id number] / [id number]
--- NOTE | 2020-03-17 16:38 | RAD ---
Examination: VENOUS LOWER EXTREMITY RIGHT History: Reason: RLE more swollen the LLE / Spl. Instructions: / History: Comparison/Correlation: None FINDINGS: Right lower extremity duplex venous ultrasound exam was performed. Grayscale, color Doppler, and spectral Doppler imaging was performed. Compression and augmentation was performed. Evaluation of the calf level is limited due to inability of the patient to be able to tolerate compression. The right common femoral vein, superficial femoral vein, popliteal vein, and saphenofemoral junction are normal with no evidence of deep venous thrombus. Visualized right calf veins are unremarkable Right groin lymph node is present measuring up to 0.9 cm x 1.9 cm in dimension. No suspicious asymmetry or mass component noted. IMPRESSION: Borderline to mildly enlarged right groin lymph node of indeterminate evidence. No evidence of deep venous thrombus involving the right lower extremity. Electronically signed by: Chris Killian MD (03/17/2020 4:36 PM) [id number]
[2020-03-17] MEDS: MEROPENEM 500 MG in IV NORMAL SALINE 50ML 50 ML IV SCH (17:32)
[2020-03-17 18:45] VITALS: BP 140/67
[2020-03-17] MEDS: INSULIN GLARGINE SYRINGE. SQ SCH (21:00)
[2020-03-17] MEDS: LINEZOLID 600 MG TABLET PO SCH (21:06)
[2020-03-17] MEDS: LATANOPROST 0.005% OPHTH SOLUTION 2.5ML BOTTLE. OU SCH (21:06)
[2020-03-17 22:41] VITALS: BP 147/72
[2020-03-18] MEDS: IV NORMAL SALINE 1,000ML 1,000 ML IV SCH ×2 (04:11→17:37)
[2020-03-18] MEDS: MEROPENEM 500 MG in IV NORMAL SALINE 50ML 50 ML IV SCH ×2 (04:11→17:36)
[2020-03-18] MEDS: LEVOTHYROXINE 50 MCG TABLET PO SCH (05:48)
[2020-03-18 06:04] LABS: HEMATOCRIT 35.3 % (36.0-47.0); HEMOGLOBIN 11.5 g/dL (12.0-15.5); RED BLOOD COUNT 3.44 x10^6/uL (3.50-5.40); RED CELL DISTRIBUTION WIDTH 15.4 % (11.5-14.5); WHITE BLOOD COUNT 9.9 x10^3/uL (4.0-11.0)
[2020-03-18 06:22] LABS: CREATININE 1.7 mg/dL (0.6-1.0); GFR 28.3; POTASSIUM 4.1 mmol/L (3.5-5.1)
[2020-03-18 07:30] VITALS: BP 152/64
[2020-03-18] MEDS: GABAPENTIN 300 MG CAPSULE. PO SCH (08:02)
[2020-03-18] MEDS: ALLOPURINOL 100 MG TABLET. PO SCH (08:02)
[2020-03-18] MEDS: METOPROLOL SUCC 24HR ER 50 MG TAB.ER.24H. PO SCH (08:02)
[2020-03-18] MEDS: POTASSIUM CHLORIDE 10 MEQ TABLET.ER. PO SCH (08:02)
[2020-03-18] MEDS: LINAGLIPTIN 5 MG TABLET PO SCH (08:03)
[2020-03-18] MEDS: CHOLECALCIFEROL (VITAMIN D3) 1,000 UNIT TABLET PO SCH (08:03)
[2020-03-18] MEDS: LINEZOLID 600 MG TABLET PO SCH ×2 (08:03→21:42)
[2020-03-18] MEDS: DORZOLAMIDE/TIMOLOL 2%/0.5% OPHTH SOLUTION 10ML BOTTLE. OU SCH ×2 (08:04→21:42)
[2020-03-18] MEDS: LACTOBACILLUS RHAMNOSUS GG 1 CAPSULE. PO SCH ×2 (08:04→21:42)
[2020-03-18 11:00] VITALS: BP 146/78
--- NOTE | 2020-03-18 14:59 | NUR ---
Allergies and reactions y INR BUN Cr Platelets y Blood culture done blood culture results y Order Verified y Consent signed y Previous PICC placement y Past Medical/Surgical history and current diagnosis reviewed Patient Medical /Surgical History Related to PICC line placement None Special considerations for PICC line placement Anticoagulation therapy PICC placement indication Caustic medication class drug usage, senior care antibiotic usage, Multiple/ Frequent blood draws Name of PICC Nurse Blossom castillo RN BSN CMSRN [facility] PT will be on rocephin for one week. Midline more approriate at this time due to risk and length of infusion.
[2020-03-18 15:15] VITALS: BP 162/86
[2020-03-18] MEDS ORDERED: WARFARIN 3 MG TABLET. PO SCH (16:00)
--- NOTE | 2020-03-18 17:27 | NUR ---
Procedure: Following complete explanation of the midline procedure including the indications, risks, and potential complications, informed consent was obtained. Daughter was present as well and agreeable. The possibility for infection was discussed along with signs, symptoms, and prevention. All the questions were answered.IV Device Protocol was used. Written and verbal patient education was provided. Hand hygiene performed. Standardized central line checklist was utilized. The patient was placed in the supine position, the arm was prepped with chlorhexidine and patient draped with maximum sterile barrier. 2 mL 1% lidocaine was infiltrated into the skin to provide local anesthesia. A thorough assessment of Left upper extremity completed. Using real-time ultrasound guidance and standardized micro puncture set, the brachial vein was punctured and a peel away sheath was placed using the modified Seldinger technique. The bevel location was visible in the center of the vessel. The catheter was secured using a securement device and an antimicrobial patch was applied directly on the insertion site followed by a transparent dressing.Great blood return noted. Patient tolerated the procedure without apparent complication(s). Single Lumen Power MIDLINE placement successful and uncomplicated. Complications: none Great blood retuned noted. After securing midline, no blood returm unless pull back on statlock and device. Flushes great with no pain or edema noted. Ok to use, midlines do not always have a blood return once placed. Blossom Hernandez APPLICATION PROGRAMMER ANALYST [facility]RN [facility] 18 cm in 0 out.
--- NOTE | 2020-03-18 18:44 | NUR ---
Assumed care of pt at 0700, pt has been a/ox4 and very eager to go home. Continuing antibiotics once pt discharges. Midline has been placed and family is ready to take her home tomorrow morning. Pt ambulating well today with walker and standby assistance. Educated pt to use call light to request assistance from staff, pt verbalizes understanding.
--- NOTE | 2020-03-18 19:07 | PN ---
DATE: 03/18/2020 SUBJECTIVE: The patient is resting, slightly propped up in bed, in no apparent distress. She is awake, alert. Denied any complaint. Her leg continued to be erythematous and hot to touch. Her white cell count is coming down from 17,600 to 9.9. Unfortunately, her kidney function continued to be abnormal, although trending down. Her baseline creatinine is about 1.4, today's creatinine is 1.7. PHYSICAL EXAMINATION: GENERAL: When I examined her, she looked pale, not jaundiced, cyanosis or thyromegaly. No jugular venous distention. No lower limb edema. VITAL SIGNS: Her heart rate was 59, blood pressure 146/78, temperature 97.5, respiratory rate was 16, and oxygen saturation was 98%. HEAD, EYES, EARS, NOSE AND THROAT: Showed normocephalic and atraumatic. NECK: Supple. HEART: Showed normal first and second heart sounds. No gallop or murmur. CHEST: Clear to auscultation. No crepitation or rhonchi. ABDOMEN: Distended, soft, nontender. NEUROLOGIC: She is hard of hearing, but otherwise all her cranial nerves intact. She moves extremities without difficulty. She ambulates with a walker. IMAGING STUDIES: The venous Doppler ultrasound of the right lower extremity showed that she has borderline to mildly enlarged right groin lymph nodes of indeterminate evidence consistent with the right lower extremity cellulitis. She has no evidence of deep vein thrombosis involving the right lower extremity. She is already on Coumadin and her INR is subtherapeutic. LABORATORY DATA: ____. White cell count was 9900, hemoglobin 11, hematocrit 35, MCV 103, and platelet count 222,000. Serum sodium 137, potassium 4.1, chloride 108, bicarbonate 18, anion gap of 11, BUN 24, creatinine 1.7, estimated GFR was 28 mL per minute. Her glucose 152, calcium was 8. PLAN: To arrange for her to have a midline and will be discharge home tomorrow on IV Rocephin 1 g IV daily together with oral doxycycline. CASEY MCKENZIE MD DR: JATIN/niurka JOB#: [id number] / [id number]
[2020-03-18 19:51] VITALS: BP 158/74
[2020-03-18] MEDS: INSULIN GLARGINE SYRINGE. SQ SCH (21:00)
[2020-03-18] MEDS: LATANOPROST 0.005% OPHTH SOLUTION 2.5ML BOTTLE. OU SCH (21:42)
[2020-03-18 23:30] VITALS: BP 173/84
[2020-03-19] MEDS: MEROPENEM 500 MG in IV NORMAL SALINE 50ML 50 ML IV SCH (04:39)
[2020-03-19 05:56] VITALS: BP 180/78
[2020-03-19] MEDS: LEVOTHYROXINE 50 MCG TABLET PO SCH (06:00)
[2020-03-19] MEDS: IV NORMAL SALINE 1,000ML 1,000 ML IV SCH (06:16)
[2020-03-19 06:22] LABS: HEMATOCRIT 33.5 % (36.0-47.0); HEMOGLOBIN 10.8 g/dL (12.0-15.5); RED BLOOD COUNT 3.25 x10^6/uL (3.50-5.40); RED CELL DISTRIBUTION WIDTH 15.2 % (11.5-14.5); WHITE BLOOD COUNT 9.5 x10^3/uL (4.0-11.0)
[2020-03-19 06:33] LABS: ALBUMIN/GLOBULIN RATIO 0.5 (1.0-1.7); CALCIUM 7.9 mg/dL (8.5-10.1); CREATININE 1.7 mg/dL (0.6-1.0); GFR 28.3; POTASSIUM 4.1 mmol/L (3.5-5.1); TOTAL BILIRUBIN 0.5 mg/dL (0.2-1.0)
[2020-03-19] MEDS: POTASSIUM CHLORIDE 10 MEQ TABLET.ER. PO SCH (08:16)
[2020-03-19 08:17] VITALS: BP 180/78
[2020-03-19] MEDS: METOPROLOL SUCC 24HR ER 50 MG TAB.ER.24H. PO SCH (08:17)
[2020-03-19] MEDS: LINAGLIPTIN 5 MG TABLET PO SCH (08:17)
[2020-03-19] MEDS: LINEZOLID 600 MG TABLET PO SCH (08:17)
[2020-03-19] MEDS: GABAPENTIN 300 MG CAPSULE. PO SCH (08:17)
[2020-03-19] MEDS: ALLOPURINOL 100 MG TABLET. PO SCH (08:18)
[2020-03-19] MEDS: LACTOBACILLUS RHAMNOSUS GG 1 CAPSULE. PO SCH (08:18)
[2020-03-19] MEDS: CHOLECALCIFEROL (VITAMIN D3) 1,000 UNIT TABLET PO SCH (08:18)
[2020-03-19] MEDS: DORZOLAMIDE/TIMOLOL 2%/0.5% OPHTH SOLUTION 10ML BOTTLE. OU SCH (08:25)
[2020-03-19] MEDS ORDERED: CEFT1FRO2 IV (10:22)
[2020-03-19] MEDS ORDERED: DOXY100C2 PO (10:22)
--- NOTE | 2020-03-19 10:26 | NUR ---
Dr Junior here at this time, plan is to discharge home with Outpatient infusion therapy. Orders faxed to pharmacy and registration. Son Edin notified.
--- NOTE | 2020-03-19 10:54 | DS ---
DATE OF DISCHARGE: HISTORY AND HOSPITAL COURSE: The patient is an 89-year-old female patient who was admitted with right lower extremity cellulitis. She was also found to have acute on chronic kidney injury. We did start her on Zyvox and meropenem. The patient insisting she wants to go home, so midline was placed and switched her back to Rocephin and oral doxycycline and was discharged home to come to the hospital as an outpatient on a daily basis to continue with IV Rocephin. PHYSICAL EXAMINATION: GENERAL: When I saw her today, she looked well and was clearly in no apparent respiratory distress, pale. No jaundice, cyanosis or thyromegaly. No jugular venous distention. No limb edema. VITAL SIGNS: Her heart rate was 56, blood pressure was 180/78, temperature was 98.1, respiratory rate 20 and oxygen saturation was 97%. HEAD, EYES, EARS, NOSE AND THROAT: Showed normocephalic, atraumatic. NECK: Supple. HEART: Showed normal first and second heart sounds. No gallop, rub or murmur. CHEST: Clear to auscultation. No crepitation or rhonchi. ABDOMEN: Distended, soft, nontender. NEUROLOGIC: She was awake, alert, responding appropriately. She is hard of hearing. All cranial nerves intact. She moves extremities without difficulty. She ambulates with a walker. EXTREMITIES: Her right lower extremity continued to be slightly more swollen and erythematous, although erythema is fading. Her intake over the last 24 hours was 2100. No output was recorded. LABORATORY DATA: Her white cell count was 9500, hemoglobin 11, hematocrit 33, MCV 103 and platelet count of 242,000. Her chemistry showed a serum sodium 136, potassium 4.1, chloride 108, bicarbonate 18, anion gap of 10, BUN 19, creatinine 1.7, estimated GFR was 28 mL per minute. Her glucose was 153, calcium was 7.9. Total bilirubin and alkaline phosphatase normal. AST slightly elevated. Total protein was 6, albumin was 2. Her TSH was normal at 1.466. DISCHARGE MEDICATIONS: The patient was discharged home to continue on ceftriaxone 1 g IV daily for 7 days and doxycycline 100 mg twice a day for 7 days. She should continue also on allopurinol 100 mg once a day, cholecalciferol 5000 units daily, diclofenac sodium (Voltaren gel) applied topically to her joints twice a day, dorzolamide/timolol maleate 1 drop to both eyes twice a day, gabapentin 300 mg 3 times a day, Lantus insulin 10 units at bedtime, latanoprost 1 drop to both eyes at bedtime, levothyroxine sodium 50 mcg daily, linagliptin (Tradjenta) 5 mg once a day, metoprolol succinate 50 mg once a day and simvastatin 40 mg at bedtime. FINAL DISCHARGE DIAGNOSES: 1. Right lower extremity cellulitis, improving. 2. Acute on chronic kidney injury. Her creatinine plateaued at 1.7. 3. Type 2 diabetes mellitus. 4. Hypothyroidism. She is both clinically and biochemically euthyroid. 5. Underlying dementia. CASEY MCKENZIE MD DR: JATIN/niurka JOB#: [id number] / [id number]
--- NOTE | 2020-03-19 11:16 | NUR ---
PATIENT IS DISCHARGED HOME WITH OUTPATIENT IV INFUSION. DISCHARGED INSTRUCTIONS AND MEDICATIONS REVIEWED, PT VERBALIZED UNDERSTANDING. PATIENT LEFT ROOM VIA W/C ACCOMPANIED BY THIS RN. PATIENT IS TAKEN HOME BY FAMILY MEMBER VIA PERSONAL VEHICLE.
== END 2020-03-19 11:15 | disposition home or self-care (01) | DRG 682 ==
LOC: 1 SOUTH 09:33
PROVIDERS: ADMIT Hospitalist; ATTEND Internal Medicine
DX: N17.0 Acute kidney failure with tubular necrosis (principal); E43 Unspecified severe protein-calorie malnutrition; L03.115 Cellulitis of right lower limb; E03.9 Hypothyroidism, unspecified; E11.22 Type 2 diabetes mellitus with diabetic chronic kidney disease; E86.0 Dehydration; F03.90 Unspecified dementia, unspecified severity, without behavioral disturbance, psychotic disturbance, mood disturbance, and anxiety; I12.9 Hypertensive chronic kidney disease with stage 1 through stage 4 chronic kidney disease, or unspecified chronic kidney disease; N18.9 Chronic kidney disease, unspecified; Z88.0 Allergy status to penicillin; Z88.2 Allergy status to sulfonamides; Z68.26 Body mass index [BMI] 26.0-26.9, adult
CPT/HCPCS: 36415; 80048; 80053; 81001; 82947; 84443; 85007; 85025; 85027; 85610; 87040; 87086; 93971; J0696; J1815; J2185; 97116; 97530; J7030